=== PATIENT | male | born 1955 | race Caucasian/White ===

== ENCOUNTER 2021-06-09 19:37 | Inpatient (IN) | payer MEDICARE, SELFPAY ==
[2021-06-09] VITALS (13 sets, daily range): BP systolic 104–131; BP diastolic 62–74; PULSE 61–74; RESP 16–22; TEMP 36.1–37; O2SAT 91–98; BMI 28.0
--- NOTE | 2021-06-09 19:43 | PCM.HP.STD ---
HPI - General General Date of Admission: 06/09/21 HPI Narrative JEREMIAH METCALF, is a 65 M who presents from an outside hospital with acute hypoxic and hypercapnic respiratory failure. He has a history of COPD. Unfortunately patient is intubated on arrival cannot provide any history. It appears that he arrived to the outside hospital short of breath and they found that his PCO2 was elevated to 91 and he had a pH of 7.16. Initially they trialed him on BiPAP however they did not have any significant improvement in his ABG so they elected to intubate him. He had to be transferred to this institution secondary to the outside hospital not having critical care. Currently he is stable on review of his medical record from the outside hospital, he does have an elevated D-dimer they did send a disc with images so we will see if he has a CTA, chest x-ray did demonstrate a possible right lower lobe pneumonia. He also had an elevated troponin however this is likely secondary to his hypoxia, according to nursing staff and signout they were told that when he arrived to the outside hospital he was 60% on room air. It does appear that his troponins did trend down. PFSH Allergy/AdvReac Type Severity Reaction Status Date / Time No Known Drug Allergies Allergy Other Verified 06/09/21 19:32 unable to obtain unable to obtain Social History (Updated 06/09/21 @ 19:[address] Hang Nunes MD) Smoking Status: Current every day smoker ROS Review of Systems ROS Unobtainable: due to endotracheal tube Vital Signs Vital Signs Vital Signs: 06/09/21 18:45 06/09/21 19:09 Pulse Rate 65 67 Respiratory Rate 16 Respiratory Pattern Normal Pulse Ox 92 Fraction of Inspired Oxygen (FIO2) 40 Weight Weight: 184 lb 4.903 oz Body Mass Index (BMI) 28.0 Physical Exam Const General Appearance: intubated and patient mechanically ventilated HEENT normocephalic and moist oral mucous membranes Eyes PERRL and conjunctivae normal Neck supple and no JVD Resp normal respiratory effort, no retractions and no use of accessory muscles Auscultation: rhonchi; Negative for crackles, rales or wheezes Cardio regular rate, regular rhythm, S1 normal heart sound, S2 normal heart sound and no murmurs GI soft to palpation and non-distended; Negative for hepatosplenomegaly Extremity no clubbing, cyanosis or edema Skin no rashes or lesions noted Neuro Sensorium / Orientation: sedated on vent Psych Appearance: intubated Assessment & Plan Assessment/Plan (1) Acute respiratory failure with hypoxia and hypercapnia: (2) Pneumonia: (3) COPD exacerbation: PLAN: 1. Acute hypoxic and hypercapnic respiratory failure secondary to COPD exacerbation and possible pneumonia ? Unfortunate able to obtain any history from the chart or from the patient as he is intubated ? Continue with Levaquin ? Continue with IV fluids ? We will repeat an ABG to evaluate progress ? Chest x-ray from the outside hospital demonstrated hyperinflated lungs so he likely has a history of COPD given his smoking he did have some rhonchi/wheezing on exam sick also placed on steroids ? Appreciate ICU assistance ? We will obtain a sputum culture ? Flu and COVID testing were negative at the outside hospital ? Elevated troponin at the outside hospital is likely related to the hypoxia, it was trending down per their labs therefore will not investigate further at this time DVT: Lovenox Charges/Coding Visit Charges Inpatient E&M: 96026 Init Hosp L3
[2021-06-09 19:56] LABS: Allen Test Positive; Base Excess 4 mmol/L (-2 to +2); Bicarbonate 30.2 mmol/L (22-26); Blood Gas Specimen Type ART; FI02 40; Mode AC; O2 Delivery Device Adult Vent; PEEP 5; PO2 88 mmHG (75-100); RR 16; SITE R Radial; SO2 96 % (95-99); Total Carbon Dioxide 32 mmol/L; Vt 550; pCO2 56.7 mmHg (35-45); pH 7.34 (7.35-7.45)
--- NOTE | 2021-06-09 20:02 | RAD_ITS ---
STUDY: X-RAY CHEST REASON FOR EXAM: Male, 65 years old. CHEST PAIN ETT Positioning TECHNIQUE: XR Chest 1 View COMPARISON: None FINDINGS: There is no demonstrated pleural abnormality. There is bilateral infiltrate / atelectasis. There is an NGT and ET tube in place. Cervical spine fusion hardware noted. Normal size heart. Normal mediastinum and nydia. Normal visualized pulmonary arteries. There is atherosclerotic calcification of the aortic arch with tortuosity. There are diffuse degenerative changes of the visualized thoracic spine. There is degenerative osteoarthritis of the bilateral shoulders. There is no demonstrated abnormality of the visualized soft tissue structures of the upper abdomen. RAD/Chest 1 View (Portable) IMPRESSION: There is bilateral infiltrate. ET tube is in good position. Electronically Signed: Nestor Youssef MD at 21:27 EDT ,
[2021-06-09] MEDS: Propofol 10MG/Ml 1,000 MG/100 ML Bottle 17.6 MG CONT INF (20:08)
[2021-06-09 20:09] LABS: ALB/GLOB Ratio 0.6 RATIO (0.9-2.4); AST(SGOT) 14 U/L (15-37); Alanine Aminotransfer ALT/SGPT 24 U/L (16-61); Albumin, Serum 2.7 g/dL (3.2-5.0); Alkaline Phosphatase 78 U/L (45-117); Anion Gap 2 (5-15); BUN 46 mg/dL (7-18); BUN/Creat Ratio 41.1 RATIO (10-20); Calcium,Total 9.1 mg/dL (8.5-10.1); Chloride 107 mmol/L (98-107); Creatinine, Serum 1.12 mg/dL (0.70-1.30); EST Glomerular Filtration Rate 69 mL/min (>60); Est Glom Filt Rate - Afr Amer 84 mL/min (>60); Estimated Creatinine Clearance 61.92 ml/min; Globulin 4.2 g/dL (2.2-4.2); Glucose 170 mg/dL (74-106); Potassium 4.5 mmol/L (3.5-5.1); Protein, Total 6.9 g/dL (6.4-8.2); Sodium Level 143 mmol/L (136-145)
[2021-06-09 20:12] LABS: Absolute Lymphocyte Count 0.41 X10^3/uL (0.83-4.51); Absolute Neutrophil Count 8.7 X10^3/uL (2.0-7.7); Basophil# 0.03 X10^3/uL; Basophil% 0.3 % (0-1); Eosinophil# 0.01 X10^3/uL; Eosinophils% 0.1 % (0-5); Lymphocyte # 0.41 X10^3/ul (0.83-4.51); Lymphocyte % 4.3 % (19-41); Mean Corp Hgb Conc 32.6 g/dL (32-36); Mean Corpuscular Hgb 30.4 pg (27.0-32.0); Mean Corpuscular Volume 93.1 fL (80-94); Mean Platelet Vol. 10.5 fl (6.2-12.0); Monocyte# 0.19 X10^3/uL; NRBC Flagged by Analyzer 0.3 % (0-5); Neutrophil # 8.67 X10^3/uL (2.7-7.7); Neutrophil % 91.6 % (47-70); POSITIVE DIFFERENTIAL YES; Platelet Count 244 K/mm3 (150-450); RBC Distribution Width CV 15.1 % (11.6-14.6); RBC Distribution Width SD 51.8 fl (35.1-43.9); Red Blood Count 4.94 M/mm3 (4.6-6.2); White Blood Count 9.5 K/mm3 (4.4-11.0)
[2021-06-09 20:14] LABS: Differential Indicated SCAN CRITERIA MET
--- NOTE | 2021-06-09 20:44 | NURSING ---
Came on to shift at 1914. Propofol drip noted to be running at 20mcg/kg/min with previous shift RN. Pt direct admit, no admission orders present at that time. Dr. Nunes aware and placing orders at this time, ok to continue propofol drip.
[2021-06-09 20:46] LABS: Platelet Estimate ADEQUATE (ADEQ); Red Cell Morphology NORM C+C NORMAL (NORM C&C)
[2021-06-09 21:38] LABS: CPK Total, Creatine Kinase 133 U/L (39-308); Triglycerides 114 mg/dL
[2021-06-09] MEDS: Chlorhexidine 15 ML PO (22:10)
[2021-06-09] MEDS: 0.9% Normal Saline 1,000 ML 100 ML IV (22:11)
[2021-06-09] MEDS: Propofol 10MG/Ml 1,000 MG/100 ML Bottle 25.1 MG CONT INF (23:06)
[2021-06-10] VITALS (45 sets, daily range): BP systolic 82–124; BP diastolic 48–94; PULSE 45–113; RESP 14–28; TEMP 36.3–36.6; O2SAT 80–99
[2021-06-10] MEDS: 0.9% Saline Lock 10 ML Syringe IV (02:49)
[2021-06-10] MEDS: Propofol 10MG/Ml 1,000 MG/100 ML Bottle 22.6 MG CONT INF ×6 (02:50→23:06)
[2021-06-10 03:03] LABS: Absolute Lymphocyte Count 0.54 X10^3/uL (0.83-4.51); Absolute Neutrophil Count 6.3 X10^3/uL (2.0-7.7); Basophil# 0.01 X10^3/uL; Basophil% 0.1 % (0-1); Eosinophil# 0.01 X10^3/uL; Eosinophils% 0.1 % (0-5); Hematocrit 39.8 % (40-54); Hemoglobin 13.4 g/dL (13.0-16.5); Lymphocyte # 0.54 X10^3/ul (0.83-4.51); Lymphocyte % 7.5 % (19-41); Mean Corp Hgb Conc 33.7 g/dL (32-36); Mean Corpuscular Hgb 30.6 pg (27.0-32.0); Mean Corpuscular Volume 90.9 fL (80-94); Mean Platelet Vol. 10.1 fl (6.2-12.0); Monocyte# 0.22 X10^3/uL; Monocyte% 3.1 % (0-10); NRBC Flagged by Analyzer 0.3 % (0-5); Neutrophil # 6.32 X10^3/uL (2.7-7.7); Neutrophil % 88.1 % (47-70); POSITIVE DIFFERENTIAL YES; Platelet Count 229 K/mm3 (150-450); RBC Distribution Width CV 14.8 % (11.6-14.6); RBC Distribution Width SD 49.6 fl (35.1-43.9); Red Blood Count 4.38 M/mm3 (4.6-6.2); White Blood Count 7.2 K/mm3 (4.4-11.0)
[2021-06-10 03:17] LABS: Anion Gap 5 (5-15); BUN 49 mg/dL (7-18); BUN/Creat Ratio 49.7 RATIO (10-20); Calcium,Total 8.2 mg/dL (8.5-10.1); Chloride 108 mmol/L (98-107); Creatinine, Serum 0.99 mg/dL (0.70-1.30); EST Glomerular Filtration Rate 80 mL/min (>60); Est Glom Filt Rate - Afr Amer 97 mL/min (>60); Estimated Creatinine Clearance 70.05 ml/min; Glucose 198 mg/dL (74-106); Potassium 4.3 mmol/L (3.5-5.1); Sodium Level 143 mmol/L (136-145)
[2021-06-10 05:10] LABS: Differential Indicated SCAN CRITERIA MET
[2021-06-10 05:27] LABS: Differential Comment SCANNED
--- NOTE | 2021-06-10 06:01 | CON.PCM.CC_ITS ---
Assessment & Plan Assessment/Plan (1) Acute respiratory failure with hypoxia and hypercapnia: PLAN: RECOMMENDATIONS: 1. Continue patient on assist control mode mechanical ventilation. Wean FiO2 for saturations greater than 90%. 2. In light of his elevated BNP at the outside hospital, discontinue IV fluids. 3. Transition from Levaquin to Zosyn. Check MRSA screen. 4. Continue scheduled bronchodilators and IV steroids. 5. Obtain echocardiogram. 6. Continue Lovenox for DVT prophylaxis. Start appropriate GI prophylaxis with PPI therapy. 7. Repeat D-dimer. IMPRESSIONS: 1. Respiratory failure with hypoxemia and hypercapnia, of unclear chronicity The patient has an apparent history of COPD along with chronic tobacco dependenc y. However, we do not have any records of any prior pulmonary function studies. In addition, it is still unclear if the patient truly utilizes supplemental oxygen at his baseline. The patient did have bilateral interstitial infiltrates noted on chest imaging. Therefore, it is certainly reasonable to continue antimicrobials to cover for potential pulmonary infectious process. In addition, he did have an elevated BNP and troponin. Accordingly, will obtain an echocardiogram. The patient did have an elevated D-dimer at the outside hospital. However, follow-up CTA chest was never completed. We will plan to recheck his D-dimer and if still elevated, will obtain CTA chest to complete his work-up. In the interim, the patient will remain on scheduled bronchodilators and IV steroids. He will be continued on assist control mode of mechanical ventilation. FiO2 will be weaned to maintain the oxygen saturations at or above 90%. 2. Troponin elevation Likely secondary to demand ischemia in the setting of #1. Nevertheless, given his lack of medical history coupled with his elevated BNP, will obtain echocardiogram for follow-up. 3. Chronic tobacco dependency The exact pack-year smoking history is unclear. Nevertheless, nicotine replacement therapy can be utilized while the patient is admitted to the hospital. TIME: 33 minutes of critical care time, independent of procedures, was spent addressing the patient's respiratory failure with hypoxemia and hypercapnia, troponin elevation, review of all data and collaboration with the care team. HPI Consult Data Date of Consult: 06/10/21 HPI Narrative Reason for Consultation: Acute on chronic respiratory failure HPI Narrative: The patient is a 65-year-old male, with a history as outlined below, who presented as a transfer of care from [facility] on June 09 with reported shortness of breath of several days duration. History pertinent to the patient's hospitalization was obtained primarily via chart review, as the patient is currently intubated and there is no family available at the bedside. According to documentation, the patient has a history of COPD of unknown severity along with chronic tobacco dependency. Chest x-ray from outside hospital demonstrated an infiltrate in the right lung base along with an elevated left hemidiaphragm. Initial troponin was elevated at 112. There was no evidence of leukocytosis on CBC with differential. Creatinine was noted to be 1.2. D-dimer was elevated at 626. BNP was increased at 2796. Lactate was normal at 1.2. Initial arterial blood gas obtained on a nonrebreather demonstrated a pH of 7.19 with a PCO2 of 91 and PO2 of 130. Rapid influenza screen was negative. COVID antigen testing was negative. According to documentation from the outside hospital, he was placed on a trial of BiPAP. However, he failed to improve and was ultimately intubated. [facility] Medical History COPD (chronic obstructive pulmonary disease) Diabetes Smoking Allergy/AdvReac Type Severity Reaction Status Date / Time No Known Drug Allergies Allergy Other Verified 06/09/21 19:32 Family History unable to obtain Surgical History unable to obtain Social History Smoking Status: Current every day smoker tobacco type: cigarettes ROS Review of Systems ROS Unobtainable: due to endotracheal tube Physical Exam Const no apparent distress General Appearance: intubated and patient mechanically ventilated HEENT normocephalic and head/scalp atraumatic Mouth: endotracheal tube in place and OG tube in place Eyes PERRL and EOMs intact bilaterally Neck supple General: trachea midline Chest inspection of chest normal Resp Auscultation: diminished lung sounds; Negative for rales, rhonchi or wheezes Cardio S1 normal heart sound and S2 normal heart sound Rate: bradycardia GI normal to inspection, nondistended, normoactive bowel sounds Extremity no clubbing, cyanosis or edema Skin no rashes or lesions noted Neuro Sensorium / Orientation: sedated on vent Lab / Micro Data Result Diagrams: 06/10/21 02:56 06/10/21 02:56 Labs: Laboratory Results - last 24 hr 06/09/21 18:50: WBC 9.5, RBC 4.94, Hgb 15.0, Hct 46.0, MCV 93.1, MCH 30.4, MCHC 32.6, RDW Std Deviation 51.8 H, RDW Coeff of Bobo 15.1 H, Plt Count 244, MPV 10.5, Immature Gran % (Auto) 1.700 H, Neut % (Auto) 91.6 H, Lymph % (Auto) 4.3 L , [place] % (Auto) 2.0, Eos % (Auto) 0.1, Baso % (Auto) 0.3, Absolute Neuts (auto) 8.7 H, Absolute Lymphs (auto) 0.41 L, Nucleated RBC % 0.3, Differential Comment , Platelet Estimate ADEQUATE, RBC Morphology NORM C+C 06/09/21 18:50: Sodium 143, Potassium 4.5, Chloride 107, Carbon Dioxide 34.0 H, Anion Gap 2 L, BUN 46 H, Creatinine 1.12, Estim Creat Clear Calc 61.92, Est GFR (MDRD) Af Amer 84, Est GFR (MDRD) Non-Af 69, BUN/Creatinine Ratio 41.1 H, Glucose 170 H, Calcium 9.1, Total Bilirubin 0.30, AST 14 L, ALT 24, Alkaline Phosphatase 78, Total Protein 6.9, Albumin 2.7 L, Globulin 4.2, Albumin/Globulin Ratio 0.6 L 06/09/21 18:50: Total Creatine Kinase 133, Triglycerides 114 06/10/21 02:56: WBC 7.2, RBC 4.38 L, Hgb 13.4, Hct 39.8 L, MCV 90.9, MCH 30.6, MCHC 33.7, RDW Std Deviation 49.6 H, RDW Coeff of Bobo 14.8 H, Plt Count 229, MPV 10.1, Immature Gran % (Auto) 1.100 H, Neut % (Auto) 88.1 H, Lymph % (Auto) 7.5 L , [place] % (Auto) 3.1, Eos % (Auto) 0.1, Baso % (Auto) 0.1, Absolute Neuts (auto) 6.3, Absolute Lymphs (auto) 0.54 L, Nucleated RBC % 0.3, Differential Comment SCANNED 06/10/21 02:56: Sodium 143, Potassium 4.3, Chloride 108 H, Carbon Dioxide 30.0, Anion Gap 5, BUN 49 H, Creatinine 0.99, Estim Creat Clear Calc 70.05, Est GFR (MDRD) Af Amer 97, Est GFR (MDRD) Non-Af 80, BUN/Creatinine Ratio 49.7 H, Glucose 198 H, Calcium 8.2 L ABG Data ABG results: ABG 06/09/21 19:48 Specimen Type ART Sample Site R Radial pH 7.34 L Bicarbonate Actual 30.2 H Total CO2 32 Base Excess 4 H O2 Saturation 96 O2 % 40 ABG pCO2 56.7 H ABG pO2 88 Moiz Test Positive Respiration Rate 16 O2 Delivery Device Adult Vent Vent Mode AC Tidal Volume 550 POC PEEP 5 Radiology Impression Chest X-Ray 06/09/21 20:02 IMPRESSION: There is bilateral infiltrate. ET tube is in good position. Electronically Signed: Nestor Youssef MD at 21:27 EDT Reading Location ID and State: [facility] / [place] , Service support , Charges/Coding Procedures Hospitalists Procedures: [id number] Critial Care 1st Hr
--- NOTE | 2021-06-10 06:13 | ECHOCS_ITS ---
Reason For Study: SOB Procedure This was a 2D Doppler, Color Flow transthoracic echocardiogram. The study was technically difficult. Patient scanned supine on vent. Exam performed portable in ICU/CCU. Left Ventricle Normal left ventricle. The estimated ejection fraction is 50-55 %. Right Ventricle Normal right ventricle. Normal systolic function. Atria Normal left atrium. Normal right atrium. Mitral Valve The mitral valve is structurally normal. No prolapse or stenosis seen. No mitral valve insufficiency. Tricuspid Valve Normal tricuspid valve. No eccentric tricuspid valve insufficiency. Aortic Valve Normal aortic valve. No eccentric aortic valve insufficiency. Pulmonic Valve The pulmonic valve is not well visualized. Great Vessels Normal aortic root. Pericardium/Pleural No pericardial effusion. Medication Diluted definity 2ml given slow IV push to enhance endocardial definition. MMode/2D Measurements & Calculations LVIDd: 5.3 cm IVSd: 1.1 cm Ao root diam: 3.4 cm LVIDs: 3.6 cm LVPWd: 0.92 cm FS: 31.9 % LVAd ap4: 34.6 cm2 SV(MOD-sp4): 73.1 ml SV(sp4-el): 73.0 ml LVLd ap4: 7.9 cm EDV(MOD-sp4): 128.1 ml EDV(sp4-el): 129.2 ml LVAs ap4: 20.9 cm2 LVLs ap4: 6.6 cm ESV(MOD-sp4): 54.9 ml ESV(sp4-el): 56.2 ml EF(MOD-sp4): 57.1 % EF(sp4-el): 56.5 % LA dimension(2D): 3.6 cm Doppler Measurements & Calculations MV E max dimitri: 67.1 cm/sec Lat Peak E' Dimitri: 7.7 cm/sec Med Peak E' Dimitri: 7.6 cm/sec MV A max dimitri: 68.4 cm/sec E/E' lat: 8.7 E/E' med: 8.9 MV E/A: 0.98 Ao V2 max: 121.8 cm/sec LV V1 max: 94.5 cm/sec PA V2 max: 79.1 cm/sec Ao max P.9 mmHg LV V1 max P.6 mmHg TR max dimitri: 232.1 cm/sec TR max P.5 mmHg ECHO/Echo Complete W/ Contrast Interpretation Summary The estimated ejection fraction is 50-55 %. patient [facility] COPD/TDS Contrast echo used with Normal LV wall mothion No revious study to compare Ordering Physician: Roddy Cruz Performed By: Marah Winn RDCS
[2021-06-10] MEDS: Ipratropium/Albuterol Sulfate 3 ML AMPUL.NEB INHALATION ×4 (07:03→18:37)
[2021-06-10 07:09] LABS: D-Dimer Quantitative (DVT/PE) 2.09 FEU/ug/m (0.27-0.49)
--- NOTE | 2021-06-10 07:27 | CT_ITS ---
STUDY: CTA CHEST REASON FOR EXAM: Male, 65 years old. Elevated D-Dimer RADIATION DOSAGE (If Supplied By Facility): CTDIvol = ( 14.62 ) mGy, DLP = ( 520.42 ) mGycm TECHNIQUE: The examination was performed with the intravenous administration of IV 100mL Isovue-370. Post-processing of the angiographic images was performed, with multiplanar reformation and 3D reconstruction. Individualized dose optimization techniques were used for this CT. COMPARISON: None. FINDINGS: Evaluation is limited by patient motion and by streak artifact due to the patient''s arms being at his sides. There is an endotracheal tube noted with its tip approximately 3 cm above the rula. There is an enteric tube noted with its tip in the stomach. There is no central or segmental pulmonary embolus. The subsegmental branches are not fully evaluated. There is no thoracic aortic aneurysm or dissection. There are trace bilateral pleural effusions. There is patchy airspace opacity in the right middle lobe and in the lung bases. This is most pronounced in the right lung base and is likely infectious in etiology. There is no pneumothorax. The heart and pericardium are within normal limits. There is no thoracic lymphadenopathy. Images through the upper abdomen demonstrate no significant abnormality. There is fusion hardware noted in the lower cervical spine. CT/CTA Chest W/WO Contrast IMPRESSION: Study limited by patient motion and by streak artifact due to the patient''s arms being at his sides. No central or segmental pulmonary embolus. No thoracic aortic aneurysm or dissection. Trace bilateral pleural effusions. Patchy airspace opacity in the right middle lobe and in the lung bases, most pronounced at the right lung base. This is likely infectious in etiology. Electronically Signed: Miguel Maciel MD at 8:32 EDT ,
--- NOTE | 2021-06-10 07:43 | PCM.PN.HOSP ---
Subjective Subjective Patient is a 65-year-old gentleman with history of COPD who was first admitted to [facility] with respiratory failure. His clinical condition deteriorated resulting in patient being intubated and subsequently transferred to [facility]. Patient was admitted directly to the ICU. Subsequent imaging studies obtained demonstrated patchy airspace opacity in the right middle lobe and the lung bases pronounced at the right lung base suspicious for pneumonia. Objective Data Objective Data Vital Signs: Vital Signs Temp Pulse Resp BP Pulse Ox 97.6 F L 56 L 16 116/67 93 06/10/21 03:00 06/10/21 07:05 06/10/21 07:05 06/10/21 07:00 06/10/21 07:00 Oxygen Delivery Method Mechanical Ventilator Weight: 84.1 kg Body Mass Index (BMI) 28.0 Intake & Output: Intake and Output for Last 24 Hours 06/08/21 06/09/21 06/10/21 23:59 23:59 23:59 Intake Total 121.43 / 127.08 973.32 / 973.32 Output Total 200 / 200 225 / 225 Balance -78.57 / -72.92 748.32 / 748.32 Lab / Micro Data Result Diagrams: 06/10/21 02:56 06/10/21 02:56 Labs: Laboratory Results - last 24 hr 06/09/21 18:50: WBC 9.5, RBC 4.94, Hgb 15.0, Hct 46.0, MCV 93.1, MCH 30.4, MCHC 32.6, RDW Std Deviation 51.8 H, RDW Coeff of Bobo 15.1 H, Plt Count 244, MPV 10.5, Immature Gran % (Auto) 1.700 H, Neut % (Auto) 91.6 H, Lymph % (Auto) 4.3 L, [place] % (Auto) 2.0, Eos % (Auto) 0.1, Baso % (Auto) 0.3, Absolute Neuts (auto) 8.7 H, Absolute Lymphs (auto) 0.41 L, Nucleated RBC % 0.3, Differential Comment , Platelet Estimate ADEQUATE, RBC Morphology NORM C+C 06/09/21 18:50: Sodium 143, Potassium 4.5, Chloride 107, Carbon Dioxide 34.0 H, Anion Gap 2 L, BUN 46 H, Creatinine 1.12, Estim Creat Clear Calc 61.92, Est GFR (MDRD) Af Amer 84, Est GFR (MDRD) Non-Af 69, BUN/Creatinine Ratio 41.1 H, Glucose 170 H, Calcium 9.1, Total Bilirubin 0.30, AST 14 L, ALT 24, Alkaline Phosphatase 78, Total Protein 6.9, Albumin 2.7 L, Globulin 4.2, Albumin/Globulin Ratio 0.6 L 06/09/21 18:50: Total Creatine Kinase 133, Triglycerides 114 06/10/21 02:56: WBC 7.2, RBC 4.38 L, Hgb 13.4, Hct 39.8 L, MCV 90.9, MCH 30.6, MCHC 33.7, RDW Std Deviation 49.6 H, RDW Coeff of Bobo 14.8 H, Plt Count 229, MPV 10.1, Immature Gran % (Auto) 1.100 H, Neut % (Auto) 88.1 H, Lymph % (Auto) 7.5 L, [place] % (Auto) 3.1, Eos % (Auto) 0.1, Baso % (Auto) 0.1, Absolute Neuts (auto) 6.3, Absolute Lymphs (auto) 0.54 L, Nucleated RBC % 0.3, Differential Comment SCANNED 06/10/21 02:56: Sodium 143, Potassium 4.3, Chloride 108 H, Carbon Dioxide 30.0, Anion Gap 5, BUN 49 H, Creatinine 0.99, Estim Creat Clear Calc 70.05, Est GFR (MDRD) Af Amer 97, Est GFR (MDRD) Non-Af 80, BUN/Creatinine Ratio 49.7 H, Glucose 198 H, Calcium 8.2 L 06/10/21 06:36: D-Dimer Quant (PE/DVT) 2.09 H* ABG Data ABG results: ABG 06/09/21 19:48 Specimen Type ART Sample Site R Radial pH 7.34 L Bicarbonate Actual 30.2 H Total CO2 32 Base Excess 4 H O2 Saturation 96 O2 % 40 ABG pCO2 56.7 H ABG pO2 88 Moiz Test Positive Respiration Rate 16 O2 Delivery Device Adult Vent Vent Mode AC Tidal Volume 550 POC PEEP 5 Radiography Diagnostic Testing: Radiology Impression Chest X-Ray 06/09/21 20:02 IMPRESSION: There is bilateral infiltrate. ET tube is in good position. Electronically Signed: Nestor Youssef MD at 21:27 EDT , Physical Exam Narrative GENERAL: Sedated on the vent HEENT: Atraumatic; EYES; Anicteric, Normal Conjunctiva NECK; supple, normal thyroid, RESPIRATORY: Diminished to auscultation CARDIOVASCULAR: Regular S1 S2, GI: soft, normoactive bowel sounds, : No Renal angle tenderness; EXTREMITIES: No edema, no clubbing, MUSCULOSKELETAL: no muscle wasting NEURO: Sedated on the vent SKIN: No Rash PSYCH; unable to assess Assessment & Plan Assessment/Plan (1) Acute respiratory failure with hypoxia and hypercapnia: (2) Pneumonia: (3) COPD exacerbation: PLAN: Patient is a 65-year-old gentleman with history of COPD who was first admitted to [facility] with respiratory failure. His clinical condition deteriorated resulting in patient being intubated and subsequently transferred to [facility]. Patient was admitted directly to the ICU. Subsequent imaging studies obtained demonstrated patchy airspace opacity in the right middle lobe and the lung bases pronounced at the right lung base suspicious for pneumonia. 1. Acute hypoxic and hypercapnic respiratory failure ? Secondary to combination of COPD and suspected pneumonia. Patient was transferred from [facility] on the vent. Patient is currently in the ICU with consultation placed to pulmonary medicine/intensive care. Vent management deferred patient had elevated D-dimer CTA of the chest was negative for PE 2. Pneumonia ? Patient is at risk for multidrug-resistant pneumonia. Patient was on Levaquin on admission this has been switched to Zosyn with MRSA screen ordered 3. COPD with acute exacerbation ? Patient was admitted with acute hypoxic and hypercapnic respiratory failure. Patient is on the vent currently. Also on systemic steroids 4. Elevated troponin ? Secondary to non-STEMI type II from demand ischemia 5. DVT prophylaxis ? SC enoxaparin Charges/Coding Visit Charges Inpatient E&M: 27659 Subs Hosp L3
[2021-06-10] MEDS: Chlorhexidine 15 ML PO ×2 (08:33→19:46)
[2021-06-10] MEDS: Enoxaparin 40 MG/0.4 ML Syringe SC (08:35)
[2021-06-10 09:40] LABS: M R Staph aureus DNA By PCR Negative (Negative); Probe Check PASS; Specimen Processing Control PASS
[2021-06-10] MEDS: CHLORHEXIDINE GLUC 2% CLOTH 1 EACH TOWELETTE TOPICAL (09:56)
--- NOTE | 2021-06-10 12:54 | CASEMGMT ---
RN CM NOTE: Pt currently intubated. Initial RN CM assessment deferred at this time. Maximilian POPEN RN CM
[2021-06-10] MEDS: Lactated Ringers 1,000 ML 999 ML IV (16:00)
[2021-06-11] VITALS (44 sets, daily range): BP systolic 100–120; BP diastolic 58–86; PULSE 46–105; RESP 9–40; TEMP 36.2–37.3; O2SAT 89–98
[2021-06-11] MEDS: Propofol 10MG/Ml 1,000 MG/100 ML Bottle 22.6 MG CONT INF (03:17)
[2021-06-11 04:11] LABS: Absolute Lymphocyte Count 0.65 X10^3/uL (0.83-4.51); Absolute Neutrophil Count 8.1 X10^3/uL (2.0-7.7); Basophil# 0.02 X10^3/uL; Basophil% 0.2 % (0-1); Hematocrit 38.3 % (40-54); Hemoglobin 13.1 g/dL (13.0-16.5); Lymphocyte # 0.65 X10^3/ul (0.83-4.51); Lymphocyte % 6.9 % (19-41); Mean Corp Hgb Conc 34.2 g/dL (32-36); Mean Corpuscular Hgb 30.5 pg (27.0-32.0); Mean Corpuscular Volume 89.3 fL (80-94); Mean Platelet Vol. 9.6 fl (6.2-12.0); Monocyte# 0.56 X10^3/uL; NRBC Flagged by Analyzer 0.2 % (0-5); Neutrophil # 8.05 X10^3/uL (2.7-7.7); Neutrophil % 85.5 % (47-70); Platelet Count 235 K/mm3 (150-450); RBC Distribution Width CV 14.9 % (11.6-14.6); RBC Distribution Width SD 48.7 fl (35.1-43.9); Red Blood Count 4.29 M/mm3 (4.6-6.2); White Blood Count 9.4 K/mm3 (4.4-11.0)
[2021-06-11 04:28] LABS: ALB/GLOB Ratio 0.7 RATIO (0.9-2.4); AST(SGOT) 8 U/L (15-37); Alanine Aminotransfer ALT/SGPT 16 U/L (16-61); Albumin, Serum 2.3 g/dL (3.2-5.0); Alkaline Phosphatase 56 U/L (45-117); Anion Gap 3 (5-15); BUN 51 mg/dL (7-18); BUN/Creat Ratio 46.4 RATIO (10-20); Calcium,Total 8.1 mg/dL (8.5-10.1); Chloride 108 mmol/L (98-107); EST Glomerular Filtration Rate 71 mL/min (>60); Est Glom Filt Rate - Afr Amer 86 mL/min (>60); Estimated Creatinine Clearance 63.05 ml/min; Globulin 3.4 g/dL (2.2-4.2); Glucose 215 mg/dL (74-106); Potassium 4.3 mmol/L (3.5-5.1); Protein, Total 5.7 g/dL (6.4-8.2); Sodium Level 142 mmol/L (136-145)
[2021-06-11] MEDS: 0.9% Saline Lock 10 ML Syringe IV ×2 (05:11→19:35)
--- NOTE | 2021-06-11 05:52 | PN.CC_ITS ---
Assessment & Plan Assessment/Plan (1) Acute respiratory failure with hypoxia and hypercapnia: PLAN: RECOMMENDATIONS: 1. Continue patient on assist control mode mechanical ventilation. Wean FiO2/PEEP for saturations greater than 90%. 2. Obtain nutrition consultation for initiation of tube feeds. 3. Continue broad-spectrum antimicrobials, pending culture results. 4. Continue scheduled bronchodilators and IV steroids. 5. Continue appropriate DVT and GI prophylaxis. 6. Plan for daily paired spontaneous awakening and breathing trials. IMPRESSIONS: 1. Respiratory failure with hypoxemia and hypercapnia, of unclear chronicity The patient has an apparent history of COPD along with chronic tobacco dependency. However, we do not have any records of any prior pulmonary function studies. In addition, it is still unclear if the patient truly utilizes supplemental oxygen at his baseline. The patient did have bilateral interstiti al infiltrates noted on chest imaging. Therefore, it is certainly reasonable to continue antimicrobials to cover for an underlying pulmonary infectious process. Echocardiogram did not reveal any significant LV dysfunction. CTA chest was negative for pulmonary embolism. We will plan to continue scheduled bronchodilators and IV steroids. FiO2 and PEEP will be weaned to maintain oxygen saturations at or above 90%. Plan for daily paired spontaneous awakening and breathing trials. 2. Troponin elevation Likely secondary to demand ischemia in the setting of #1. Surface echocardiogram was unremarkable. 3. Chronic tobacco dependency The exact pack-year smoking history is unclear. Nevertheless, nicotine replacement therapy can be utilized while the patient is admitted to the hospital. Okay to initiate tube feeds today from my perspective. TIME: 32 minutes of critical care time, independent of procedures, was spent addressing the patient's respiratory failure with hypoxemia and hypercapnia, troponin elevation, review of all data and collaboration with the care team. Subjective Subjective The patient was seen and examined at the bedside this morning. Events from the last 24 hours have been reviewed. The patient is currently afebrile, hemodynamically stable and maintaining appropriate oxygen saturations on assist control mode mechanical ventilation with an FiO2 requirement of 40% and PEEP of 8. The patient is currently documented to be overall net +1.8 L for the hospitalization. The patient remains sedated on a combination of propofol and fentanyl. He remains on empiric antimicrobials, bronchodilators and IV ster oids. The patient did ultimately fail his spontaneous breathing trial this morning due to increased work of breathing and tachypnea. Objective Data Objective Data The patient's most recent lab work, culture data and imaging studies have all been personally reviewed. CTA chest showed no evidence for pulmonary embolism. Patchy airspace disease was noted in the right middle and lower lobe. Surface echocardiogram demonstrated normal LV size and function with an ejection fraction of 50 to 55%. Respiratory viral panel was negative. Outside hospital COVID antigen testing was negative. Sputum culture is pending. Vital Signs: Vital Signs Temp Pulse Resp BP Pulse Ox 97.6 F L 102 H 23 H 105/68 93 06/11/21 03:00 06/11/21 05:10 06/11/21 05:10 06/11/21 05:00 06/11/21 05:10 Oxygen Flow Rate (L/min) 35 Oxygen Delivery Method Mechanical Ventilator Weight: 85.8 kg Body Mass Index (BMI) 28.0 Intake & Output: Intake and Output for Last 24 Hours 06/09/21 06/10/21 06/11/21 23:59 23:59 23:59 Intake Total 121.43 / 127.08 3067.25 / 3095.09 194.31 / 194.31 Output Total 200 / 200 900 / 1150 475 / 475 Balance -78.57 / -72.92 2167.25 / 1945.09 -280.69 / -280.69 Lab / Micro Data Attestation: I reviewed the patient's lab results. Result Diagrams: 06/11/21 04:05 06/11/21 04:05 Labs: Laboratory Results - last 24 hr 06/10/21 06:35: MRSA (PCR) Negative 06/10/21 06:36: D-Dimer Quant (PE/DVT) 2.09 H* 06/11/21 04:05: WBC 9.4, RBC 4.29 L, Hgb 13.1, Hct 38.3 L, MCV 89.3, MCH 30.5, MCHC 34.2, RDW Std Deviation 48.7 H, RDW Coeff of Bobo 14.9 H, Plt Count 235, MPV 9.6, Immature Gran % (Auto) 1.400 H, Neut % (Auto) 85.5 H, Lymph % (Auto) 6.9 L, [place] % (Auto) 6.0, Eos % (Auto) 0.0, Baso % (Auto) 0.2, Absolute Neuts (auto) 8.1 H, Absolute Lymphs (auto) 0.65 L, Nucleated RBC % 0.2 06/11/21 04:05: Sodium 142, Potassium 4.3, Chloride 108 H, Carbon Dioxide 31.0, Anion Gap 3 L, BUN 51 H, Creatinine 1.10, Estim Creat Clear Calc 63.05, Est GFR (MDRD) Af Amer 86, Est GFR (MDRD) Non-Af 71, BUN/Creatinine Ratio 46.4 H, Glucose 215 H, Calcium 8.1 L, Total Bilirubin 0.20, AST 8 L, ALT 16, Alkaline Phosphatase 56, Total Protein 5.7 L, Albumin 2.3 L, Globulin 3.4, Albumin/Globulin Ratio 0.7 L Micro: Microbiology 06/09/21 19:33 Sputum, Induced/Lukens Gram Stain - Final 06/09/21 19:33 Sputum, Induced/Lukens Respiratory Culture - Preliminary Culture exhibits no growth. 06/10/21 06:49 Mucosa - Nasopharyngeal Respiratory Panel (PCR) - Final Radiography Diagnostic Testing: Radiology Impression Echocardiogram 06/10/21 06:13 Interpretation Summary The estimated ejection fraction is 50-55 %. patient wih COPD/TDS Contrast echo used with Normal LV wall mothion No revious study to compare Ordering Physician: Roddy Cruz Performed By: Marah Winn, WILMER Chest CTA 06/10/21 07:27 IMPRESSION: Study limited by patient motion and by streak artifact due to the patient''s arms being at his sides. No central or segmental pulmonary embolus. No thoracic aortic aneurysm or dissection. Trace bilateral pleural effusions. Patchy airspace opacity in the right middle lobe and in the lung bases, most pronounced at the right lung base. This is likely infectious in etiology. Electronically Signed: Miguel Maciel MD at 8:32 EDT , Physical Exam Const no apparent distress General Appearance: intubated and patient mechanically ventilated HEENT normocephalic and head/scalp atraumatic Mouth: endotracheal tube in place and OG tube in place Eyes PERRL and EOMs intact bilaterally Neck supple General: trachea midline Chest inspection of chest normal Resp Auscultation: diminished lung sounds; Negative for rales, rhonchi or wheezes Cardio S1 normal heart sound and S2 normal heart sound Rate: bradycardia GI normal to inspection, nondistended, normoactive bowel sounds Extremity no clubbing, cyanosis or edema Skin no rashes or lesions noted Neuro Sensorium / Orientation: sedated on vent Charges/Coding Procedures Hospitalists Procedures: 01908 Critial Care 1st Hr
[2021-06-11] MEDS: Ipratropium/Albuterol Sulfate 3 ML AMPUL.NEB INHALATION ×4 (06:25→19:19)
[2021-06-11] MEDS: TITRATION PARAMETER CHANGE 1 EACH IV (06:57)
--- NOTE | 2021-06-11 07:22 | PN.HOSP_ITS ---
Subjective Subjective Patient remains on the vent with current vent settings of assist control mode mechanical ventilation with an FiO2 requirement of 40% and PEEP of 8.. Attempts at weaning this a.m. unsuccessful. Objective Data Objective Data Vital Signs: Vital Signs Temp Pulse Resp BP Pulse Ox 97.6 F L 53 L 16 105/61 94 06/11/21 03:00 06/11/21 07:00 06/11/21 07:00 06/11/21 07:00 06/11/21 07:00 Oxygen Flow Rate (L/min) 35 Oxygen Delivery Method Mechanical Ventilator Weight: 85.8 kg Body Mass Index (BMI) 28.0 Intake & Output: Intake and Output for Last 24 Hours 06/09/21 06/10/21 06/11/21 23:59 23:59 23:59 Intake Total 121.43 / 127.08 3067.25 / 3095.09 236.97 / 236.97 Output Total 200 / 200 900 / 1150 475 / 475 Balance -78.57 / -72.92 2167.25 / 1945.09 -238.03 / -238.03 Lab / Micro Data Result Diagrams: 06/11/21 04:05 06/11/21 04:05 Labs: Laboratory Results - last 24 hr 06/10/21 06:35: MRSA (PCR) Negative 06/11/21 04:05: WBC 9.4, RBC 4.29 L, Hgb 13.1, Hct 38.3 L, MCV 89.3, MCH 30.5, MCHC 34.2, RDW Std Deviation 48.7 H, RDW Coeff of Bobo 14.9 H, Plt Count 235, MPV 9.6, Immature Gran % (Auto) 1.400 H, Neut % (Auto) 85.5 H, Lymph % (Auto) 6.9 L, [place] % (Auto) 6.0, Eos % (Auto) 0.0, Baso % (Auto) 0.2, Absolute Neuts (auto) 8.1 H, Absolute Lymphs (auto) 0.65 L, Nucleated RBC % 0.2 06/11/21 04:05: Sodium 142, Potassium 4.3, Chloride 108 H, Carbon Dioxide 31.0, Anion Gap 3 L, BUN 51 H, Creatinine 1.10, Estim Creat Clear Calc 63.05, Est GFR (MDRD) Af Amer 86, Est GFR (MDRD) Non-Af 71, BUN/Creatinine Ratio 46.4 H, Glucose 215 H, Calcium 8.1 L, Total Bilirubin 0.20, AST 8 L, ALT 16, Alkaline Phosphatase 56, Total Protein 5.7 L, Albumin 2.3 L, Globulin 3.4, Albumin/Globulin Ratio 0.7 L Micro: Microbiology 06/09/21 19:33 Sputum, Induced/Lukens Gram Stain - Final 06/09/21 19:33 Sputum, Induced/Lukens Respiratory Culture - Preliminary Culture exhibits no growth. 06/10/21 06:49 Mucosa - Nasopharyngeal Respiratory Panel (PCR) - Final Radiography Diagnostic Testing: Radiology Impression Echocardiogram 06/10/21 06:13 Interpretation Summary The estimated ejection fraction is 50-55 %. patient wih COPD/TDS Contrast echo used with Normal LV wall mothion No revious study to compare Ordering Physician: Roddy Cruz Performed By: Marah Winn ADINA Chest CTA 06/10/21 07:27 IMPRESSION: Study limited by patient motion and by streak artifact due to the patient''s arms being at his sides. No central or segmental pulmonary embolus. No thoracic aortic aneurysm or dissection. Trace bilateral pleural effusions. Patchy airspace opacity in the right middle lobe and in the lung bases, most pronounced at the right lung base. This is likely infectious in etiology. Electronically Signed: Miguel Maciel MD at 8:32 EDT , Physical Exam Narrative GENERAL: Sedated on the vent HEENT: Atraumatic; EYES; Anicteric, Normal Conjunctiva NECK; supple, normal thyroid, RESPIRATORY: Diminished to auscultation CARDIOVASCULAR: Regular S1 S2, GI: soft, normoactive bowel sounds, : No Renal angle tenderness; EXTREMITIES: No edema, no clubbing, MUSCULOSKELETAL: no muscle wasting NEURO: Sedated on the vent SKIN: No Rash PSYCH; unable to assess Const General Appearance: intubated and patient mechanically ventilated HEENT normocephalic and moist oral mucous membranes Eyes PERRL and conjunctivae normal Neck supple and no JVD Resp normal respiratory effort, no retractions and no use of accessory muscles Auscultation: rhonchi; Negative for crackles, rales or wheezes Cardio regular rate, regular rhythm, S1 normal heart sound, S2 normal heart sound and no murmurs GI soft to palpation and non-distended; Negative for hepatosplenomegaly Extremity no clubbing, cyanosis or edema Skin no rashes or lesions noted Neuro Sensorium / Orientation: sedated on vent Psych Appearance: intubated Assessment & Plan Assessment/Plan (1) Acute respiratory failure with hypoxia and hypercapnia: (2) Pneumonia: (3) COPD exacerbation: PLAN: Patient is a 65-year-old gentleman with history of COPD who was first admitted to [facility] with respiratory failure. His clinical condition deteriorated resulting in patient being intubated and subsequently transferred to [facility]. Patient was admitted directly to the ICU. Subsequent imaging studies obtained demonstrated patchy airspace opacity in the right middle lobe and the lung bases pronounced at the right lung base suspicious for pneumonia. 1. Acute hypoxic and hypercapnic respiratory failure ? Secondary to combination of COPD and suspected pneumonia. Patient was transferred from [facility] on the vent. Patient is currently in the ICU with consultation placed to pulmonary medicine/intensive care. Vent management deferred patient had elevated D-dimer CTA of the chest was negative for PE ? 06/11/2021atient remains on the vent with current vent settings of assist control mode mechanical ventilation with an FiO2 requirement of 40% and PEEP of 8.Attempts at weaning this a.m. unsuccessful. 2. Pneumonia ? Patient is at risk for multidrug-resistant pneumonia. Patient was on Levaquin on admission this has been switched to Zosyn with MRSA screen ordered 3. COPD with acute exacerbation ? Patient was admitted with acute hypoxic and hypercapnic respiratory failure. Patient is on the vent currently. Also on systemic steroids 4. Elevated troponin ? Secondary to non-STEMI type II from demand ischemia 5. DVT prophylaxis ? SC enoxaparin 6. Hyperglycemia ? Patient is not a known diabetic patient elevated blood glucose possibly from his systemic steroid order hemoglobin A1c Charges/Coding Visit Charges Inpatient E&M: 16300 Subs Hosp L3
[2021-06-11 08:03] LABS: Hemoglobin A1c 6.5 % (3.8-5.6)
[2021-06-11] MEDS: Enoxaparin 40 MG/0.4 ML Syringe SC (08:08)
[2021-06-11] MEDS: Chlorhexidine 15 ML PO ×2 (08:08→19:35)
[2021-06-11] MEDS: Propofol 10MG/Ml 1,000 MG/100 ML Bottle 23.2 MG CONT INF ×4 (08:12→19:54)
--- NOTE | 2021-06-11 10:38 | PCM.RX.CS ---
Consult Pharmacy has been consulted to manage selected antiobiotic: Vancomycin Type of Consult: New start Suspected Infection: Pneumonia Prior Doses of Antibiotics Received/Current Regimen: Received loading dose of 2000mg iv x 1. Labs: Sodium 142 mmol/L (136-145) 06/11/21 04:05 Potassium 4.3 mmol/L (3.5-5.1) 06/11/21 04:05 Chloride 108 mmol/L (98-107) H 06/11/21 04:05 Carbon Dioxide 31.0 mmol/L (21.0-32.0) 06/11/21 04:05 Anion Gap 3 (5-15) L 06/11/21 04:05 BUN 51 mg/dL (7-18) H 06/11/21 04:05 Creatinine 1.10 mg/dL (0.70-1.30) 06/11/21 04:05 Est GFR (MDRD) Af Amer 86 mL/min (>60) 06/11/21 04:05 Est GFR (MDRD) Non-Af 71 mL/min (>60) 06/11/21 04:05 BUN/Creatinine Ratio 46.4 RATIO (10-20) H 06/11/21 04:05 Glucose 215 mg/dL (74-106) H 06/11/21 04:05 Microbiology: Microbiology 06/09/21 19:33 Sputum, Induced/Lukens Gram Stain - Final 06/09/21 19:33 Sputum, Induced/Lukens Respiratory Culture - Preliminary Culture exhibits no growth. 06/10/21 06:49 Mucosa - Nasopharyngeal Respiratory Panel (PCR) - Final Weight used for dosin.8 kg Estimated Creatinine Clearance: 69 ml/min Goal Trough: 15-20 mcg/mL Pharmacy Plan for Drug Dosing: Will begin 1gm iv q12h per protocol. Trough level ordered for before 4th total dose on 06.12.21. Pharmacy Service will continue to monitor and adjust dosing as required. Follow-Up Labs: Trough Vancomycin - 06.12.21 @1830 before 1900 dose
[2021-06-11] MEDS: Vital AF 1.2 Cal Liquid 1,000 ML 20 ML GT (12:17)
[2021-06-11] MEDS: CHLORHEXIDINE GLUC 2% CLOTH 1 EACH TOWELETTE TOPICAL (12:19)
[2021-06-11] MEDS: Vancomycin IV 1,000 MG/200 ML BAG 200 MG IV (19:36)
[2021-06-11] MEDS: Propofol 10MG/Ml 1,000 MG/100 ML Bottle 20.6 MG CONT INF (23:36)
[2021-06-12] VITALS (41 sets, daily range): BP systolic 103–161; BP diastolic 58–94; PULSE 16–120; RESP 15–25; TEMP 36.2–37.3; O2SAT 35–97
[2021-06-12 03:57] LABS: Absolute Lymphocyte Count 0.58 X10^3/uL (0.83-4.51); Absolute Neutrophil Count 9.5 X10^3/uL (2.0-7.7); Basophil# 0.03 X10^3/uL; Basophil% 0.3 % (0-1); Hemoglobin 13.1 g/dL (13.0-16.5); Lymphocyte # 0.58 X10^3/ul (0.83-4.51); Lymphocyte % 5.3 % (19-41); Mean Corp Hgb Conc 33.6 g/dL (32-36); Mean Corpuscular Hgb 30.3 pg (27.0-32.0); Mean Corpuscular Volume 90.1 fL (80-94); Monocyte# 0.68 X10^3/uL; Monocyte% 6.2 % (0-10); NRBC Flagged by Analyzer 0.2 % (0-5); Neutrophil # 9.54 X10^3/uL (2.7-7.7); Neutrophil % 86.4 % (47-70); POSITIVE DIFFERENTIAL YES; Platelet Count 239 K/mm3 (150-450); RBC Distribution Width CV 14.9 % (11.6-14.6); RBC Distribution Width SD 48.6 fl (35.1-43.9); Red Blood Count 4.33 M/mm3 (4.6-6.2)
[2021-06-12] MEDS: TITRATION PARAMETER CHANGE 1 EACH IV (04:06)
[2021-06-12 04:20] LABS: ALB/GLOB Ratio 0.6 RATIO (0.9-2.4); AST(SGOT) 6 U/L (15-37); Alanine Aminotransfer ALT/SGPT 14 U/L (16-61); Albumin, Serum 2.2 g/dL (3.2-5.0); Alkaline Phosphatase 52 U/L (45-117); Anion Gap 4 (5-15); BUN 49 mg/dL (7-18); BUN/Creat Ratio 50.8 RATIO (10-20); Calcium,Total 8.6 mg/dL (8.5-10.1); Chloride 109 mmol/L (98-107); Creatinine, Serum 0.96 mg/dL (0.70-1.30); EST Glomerular Filtration Rate 83 mL/min (>60); Est Glom Filt Rate - Afr Amer 100 mL/min (>60); Estimated Creatinine Clearance 72.24 ml/min; Globulin 3.5 g/dL (2.2-4.2); Glucose 292 mg/dL (74-106); Magnesium 2.6 mg/dL (1.6-2.6); Potassium 4.6 mmol/L (3.5-5.1); Protein, Total 5.7 g/dL (6.4-8.2); Sodium Level 143 mmol/L (136-145)
[2021-06-12 04:24] LABS: Differential Indicated SCAN CRITERIA MET
[2021-06-12 04:25] LABS: Differential Comment SCANNED
[2021-06-12] MEDS: Propofol 10MG/Ml 1,000 MG/100 ML Bottle 15.6 MG CONT INF ×4 (05:37→23:47)
--- NOTE | 2021-06-12 06:36 | PCM.PN.INT ---
Assessment & Plan Assessment/Plan (1) Acute respiratory failure with hypoxia and hypercapnia: PLAN: RECOMMENDATIONS: 1. Continue patient on assist control mode mechanical ventilation. Wean FiO2/PEEP for saturations greater than 90%. 2. Continue tube feeds at the current setting. Add sliding scale insulin 3. Continue broad-spectrum antimicrobials, pending culture results. 4. Continue scheduled bronchodilators and IV steroids. 5. Continue appropriate DVT and GI prophylaxis. 6. Plan for daily paired spontaneous awakening and breathing trials. 7. Add Seroquel therapy IMPRESSIONS: 1. Respiratory failure with hypoxemia and hypercapnia, of unclear chronicity The patient has an apparent history of COPD along with chronic tobacco dependency. However, we do not have any records of any prior pulmonary function studies. In addition, it is still unclear if the patient truly utilizes supplemental oxygen at his baseline. The patient did have bilateral interstitial infiltrates noted on chest imaging. Therefore, it is certainly reasonable to continue antimicrobials to cover for an underlying pulmonary infectious process. Echocardiogram did not reveal any significant LV dysfunction. CTA chest was negative for pulmonary embolism. We will plan to continue scheduled bronchodilators and IV steroids. FiO2 and PEEP will be weaned to maintain oxygen saturations at or above 90%. Plan for daily paired spontaneous awakening and breathing trials. We will add Seroquel therapy to help with trials. 2. Troponin elevation Likely secondary to demand ischemia in the setting of #1. Surface echocardiogram was unremarkable. 3. Chronic tobacco dependency/insulin resistance The exact pack-year smoking history is unclear. Nevertheless, nicotine replacement therapy can be utilized while the patient is admitted to the hospital. Okay to continue tube feeds today from my perspective. We will add sliding scale insulin TIME: 34 minutes of critical care time, independent of procedures, was spent addressing the patient's respiratory failure with hypoxemia and hypercapnia, troponin elevation, review of all data and collaboration with the care team. Subjective Subjective Patient did okay overnight from a hemodynamic standpoint. Patient continues to tolerate tube feeds. Nursing did report episodes of bradycardia into the 40s. Patient remains on propofol and fentanyl, but becomes very agitated with spontaneous breathing trial. Patient did have some hypertension and tachycardia associated with a spontaneous breathing trial. Objective Data Objective Data Vital Signs: Vital Signs Temp Pulse Resp BP Pulse Ox 37.0 C 61 16 108/68 95 06/12/21 04:00 06/12/21 06:00 06/12/21 06:00 06/12/21 06:00 06/12/21 06:00 Oxygen Flow Rate (L/min) 40 Oxygen Delivery Method Mechanical Ventilator Weight: 86.8 kg Body Mass Index (BMI) 28.0 Intake & Output: Intake and Output for Last 24 Hours 06/10/21 06/11/21 06/12/21 23:59 23:59 23:59 Intake Total 3067.25 / 3095.09 1718.20 / 1967.69 1386.76 / 1386.76 Output Total 900 / 1150 1225 / 1225 300 / 300 Balance 2167.25 / 1945.09 493.20 / 742.69 1086.76 / 1086.76 Lab / Micro Data Result Diagrams: 06/12/21 03:50 06/12/21 03:50 Labs: Laboratory Results - last 24 hr 06/11/21 04:05: Hemoglobin A1c 6.5 H 06/12/21 03:50: WBC 11.0, RBC 4.33 L, Hgb 13.1, Hct 39.0 L, MCV 90.1, MCH 30.3, MCHC 33.6, RDW Std Deviation 48.6 H, RDW Coeff of Bobo 14.9 H, Plt Count 239, MPV 10.0, Immature Gran % (Auto) 1.800 H, Neut % (Auto) 86.4 H, Lymph % (Auto) 5.3 L, [place] % (Auto) 6.2, Eos % (Auto) 0.0, Baso % (Auto) 0.3, Absolute Neuts (auto) 9.5 H, Absolute Lymphs (auto) 0.58 L, Nucleated RBC % 0.2, Differential Comment SCANNED 06/12/21 03:50: Sodium 143, Potassium 4.6, Chloride 109 H, Carbon Dioxide 30.0, Anion Gap 4 L, BUN 49 H, Creatinine 0.96, Estim Creat Clear Calc 72.24, Est GFR (MDRD) Af Amer 100, Est GFR (MDRD) Non-Af 83, BUN/Creatinine Ratio 50.8 H, Glucose 292 H, Calcium 8.6, Magnesium 2.6, Total Bilirubin 0.30, AST 6 L, ALT 14 L, Alkaline Phosphatase 52, Total Protein 5.7 L, Albumin 2.2 L, Globulin 3.5, Albumin/Globulin Ratio 0.6 L Micro: Microbiology 06/09/21 19:33 Sputum, Induced/Lukens Gram Stain - Final 06/09/21 19:33 Sputum, Induced/Lukens Respiratory Culture - Preliminary Culture exhibits no growth. 06/10/21 06:49 Mucosa - Nasopharyngeal Respiratory Panel (PCR) - Final Physical Exam Const no apparent distress Constitutional Narrative: RASS -2 General Appearance: intubated and patient mechanically ventilated HEENT normocephalic and head/scalp atraumatic Mouth: endotracheal tube in place and OG tube in place Eyes PERRL and EOMs intact bilaterally Neck supple General: trachea midline Chest Chest Narrative: Increased AP diameter Chest: symmetrical chest wall rise; Negative for crepitus Resp Auscultation: diminished lung sounds; Negative for rales, rhonchi or wheezes Cardio S1 normal heart sound, S2 normal heart sound, no murmurs, no rub and no gallops GI normal to inspection, nondistended, normoactive bowel sounds Extremity no clubbing, cyanosis or edema Skin no rashes or lesions noted Neuro Sensorium / Orientation: sedated on vent Charges/Coding Procedures Hospitalists Procedures: 27094 Critial Care 1st Hr
[2021-06-12] MEDS: Vancomycin IV 1,000 MG/200 ML BAG 200 MG IV ×2 (06:48→18:32)
[2021-06-12] MEDS: Ipratropium/Albuterol Sulfate 3 ML AMPUL.NEB INHALATION ×4 (07:04→19:18)
[2021-06-12] MEDS: QUEtiapine 25 MG Tablet 50 MG GT (07:35)
--- NOTE | 2021-06-12 07:58 | CPS ---
found pt on TV of 500 instead of 550
--- NOTE | 2021-06-12 08:51 | PN.HOSP_ITS ---
Subjective Subjective Follow-up on Acute COPD exacerbation/pneumonia: Patient seen and examined. No acute events overnight. He remains intubated, on FiO2 35%, PEEP of 8. Objective Data Objective Data Vital Signs: Vital Signs Temp Pulse Resp BP Pulse Ox 97.4 F L 58 L 16 120/65 93 06/12/21 08:00 06/12/21 08:00 06/12/21 08:00 06/12/21 08:00 06/12/21 08:00 Oxygen Flow Rate (L/min) 40 Oxygen Delivery Method Mechanical Ventilator Weight: 86.8 kg Body Mass Index (BMI) 28.0 Intake & Output: Intake and Output for Last 24 Hours 06/10/21 06/11/21 06/12/21 23:59 23:59 23:59 Intake Total 3067.25 / 3095.09 1718.20 / 1967.69 1747.97 / 1747.97 Output Total 900 / 1150 1225 / 1225 300 / 300 Balance 2167.25 / 1945.09 493.20 / 742.69 1447.97 / 1447.97 Lab / Micro Data Result Diagrams: 06/12/21 03:50 06/12/21 03:50 Labs: Laboratory Results - last 24 hr 06/12/21 03:50: WBC 11.0, RBC 4.33 L, Hgb 13.1, Hct 39.0 L, MCV 90.1, MCH 30.3, MCHC 33.6, RDW Std Deviation 48.6 H, RDW Coeff of Bobo 14.9 H, Plt Count 239, MPV 10.0, Immature Gran % (Auto) 1.800 H, Neut % (Auto) 86.4 H, Lymph % (Auto) 5.3 L , [place] % (Auto) 6.2, Eos % (Auto) 0.0, Baso % (Auto) 0.3, Absolute Neuts (auto) 9.5 H, Absolute Lymphs (auto) 0.58 L, Nucleated RBC % 0.2, Differential Comment SCANNED 06/12/21 03:50: Sodium 143, Potassium 4.6, Chloride 109 H, Carbon Dioxide 30.0, Anion Gap 4 L, BUN 49 H, Creatinine 0.96, Estim Creat Clear Calc 72.24, Est GFR (MDRD) Af Amer 100, Est GFR (MDRD) Non-Af 83, BUN/Creatinine Ratio 50.8 H, Glucose 292 H, Calcium 8.6, Magnesium 2.6, Total Bilirubin 0.30, AST 6 L, ALT 14 L, Alkaline Phosphatase 52, Total Protein 5.7 L, Albumin 2.2 L, Globulin 3.5, Albumin/Globulin Ratio 0.6 L Micro: Microbiology 06/09/21 19:33 Sputum, Induced/Lukens Gram Stain - Final 06/09/21 19:33 Sputum, Induced/Lukens Respiratory Culture - Final Culture exhibits no growth. 06/10/21 06:49 Mucosa - Nasopharyngeal Respiratory Panel (PCR) - Final Physical Exam Narrative Physical exam: General: Sedated, intubated HEENT: Atraumatic Oral: Moist Mucosa Neck: Supple Lungs: Diminished to auscultation Cardiovascular: HS I+II, regular, no murmurs Abdomen: Bowel Sounds Present, Soft, Non Tender Extremities: No edema Assessment & Plan Assessment/Plan (1) Acute respiratory failure with hypoxia and hypercapnia: (2) Pneumonia: (3) COPD exacerbation: PLAN: 1. 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 Pneumonia, MRSA negative, continue on vancomycin and Zosyn 3. Acute COPD exacerbation, continue on IV Solu-Medrol 4. Elevated troponin secondary to acute type II non-STEMI 5. Type II DM, HbA1c 6.5, will start ISS with blood glucose checks. 6. DVT prophylaxis - Lovenox SC Charges/Coding Visit Charges Inpatient E&M: 82234 Subs Hosp L2
[2021-06-12] MEDS: Enoxaparin 40 MG/0.4 ML Syringe SC (09:30)
[2021-06-12] MEDS: Chlorhexidine 15 ML PO ×2 (09:30→21:19)
[2021-06-12] MEDS: CHLORHEXIDINE GLUC 2% CLOTH 1 EACH TOWELETTE TOPICAL (09:30)
--- NOTE | 2021-06-12 09:30 | CASEMGMT ---
RN CM Face to Face with for initial transition planning/care coordination assessment as patient is currently intubated and unable to participate in assessment. RN CM introduced self and role at [facility]. Patient lying in bed, alert and oriented. Patient willing to participate in assessment and is able to answer all questions appropriately. Care providers, pharmacy, and demographics verified. wishes for patient to discharge home but agreeable to HHC or SNF if necessary. states she has no further needs or concerns at this time. CM to follow for discharge planning needs that may arise. 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 Patient is independent and able to ambulate stairs normally Transportation: self, DME/HHC: Patient shower chair, raised toilet, walker, nebulizer, pulse ox. No previous SNF. Patient has had HHC in the past but cannot recall agency Disposition Plan: TBD HHC vs SNF pending course of treatment and progress with therapy. Mariza POPEN, RN, CM
[2021-06-12 10:36] LABS: Bedside Glucose 268 mg/dL (74-106)
[2021-06-12] MEDS: Insulin Lispro 100 UNIT/ML INSULN.PEN SC ×3 (10:36→23:48)
[2021-06-12 17:01] LABS: Bedside Glucose 280 mg/dL (74-106)
[2021-06-12] MEDS: Vital AF 1.2 Cal Liquid 1,000 ML 70 ML GT (17:20)
[2021-06-12 19:38] LABS: Vancomycin, Trough Level 12.3 ug/mL (5.0-15.0)
--- NOTE | 2021-06-12 19:52 | PCM.RX.CS ---
Consult Pharmacy has been consulted to manage selected antiobiotic: Vancomycin Type of Consult: Follow-up Suspected Infection: Pneumonia Labs: Sodium 143 mmol/L (136-145) 06/12/21 03:50 Potassium 4.6 mmol/L (3.5-5.1) 06/12/21 03:50 Chloride 109 mmol/L (98-107) H 06/12/21 03:50 Carbon Dioxide 30.0 mmol/L (21.0-32.0) 06/12/21 03:50 Anion Gap 4 (5-15) L 06/12/21 03:50 BUN 49 mg/dL (7-18) H 06/12/21 03:50 Creatinine 0.96 mg/dL (0.70-1.30) 06/12/21 03:50 Est GFR (MDRD) Af Amer 100 mL/min (>60) 06/12/21 03:50 Est GFR (MDRD) Non-Af 83 mL/min (>60) 06/12/21 03:50 BUN/Creatinine Ratio 50.8 RATIO (10-20) H 06/12/21 03:50 Glucose 292 mg/dL (74-106) H 06/12/21 03:50 Vancomycin Trough 12.3 ug/mL (5.0-15.0) 06/12/21 18:30 Microbiology: Microbiology 06/09/21 19:33 Sputum, Induced/Lukens Gram Stain - Final 06/09/21 19:33 Sputum, Induced/Lukens Respiratory Culture - Final Culture exhibits no growth. 06/10/21 06:49 Mucosa - Nasopharyngeal Respiratory Panel (PCR) - Final Goal Trough: 15-20 mcg/mL Pharmacy Plan for Drug Dosing: VANCOMYCIN LEVEL RECEIVED Current Vancomycin Dose: 1000mg IV Q12hr Number of Doses Received: 4 (3 prior to trough draw) Vancomycin Level: 12.3 Hours Since Last Dose: 12hr Renal Function: 0.96 Renal Function Trend: stable Lab/Micro: ngtd Vancomycin Plan/Comments: The patient had a trough drawn which resulted in a value of 12.3 (goal trough 15-20). Will increse the dose slightly to 1250mg IV Q12hr. The patient has already had his evening dose administered, so will start new regimen 06/13/21 @0700. Pending Level: 06/14/21 @0630, prior to 4th dose of new regimen per protocol Pharmacy Service will continue to monitor and adjust dosing as required.
[2021-06-12] MEDS: QUEtiapine 100 MG Tablet GT (21:20)
[2021-06-12] MEDS: Senna/Docusate Sodium 1 Tablet 2 TABLET GT (21:20)
[2021-06-12 23:55] LABS: Bedside Glucose 321 mg/dL (74-106)
[2021-06-13] VITALS (38 sets, daily range): BP systolic 100–178; BP diastolic 55–114; PULSE 48–107; RESP 13–26; TEMP 36–36.7; O2SAT 89–97
[2021-06-13 03:51] LABS: Absolute Lymphocyte Count 0.57 X10^3/uL (0.83-4.51); Absolute Neutrophil Count 8.6 X10^3/uL (2.0-7.7); Basophil# 0.05 X10^3/uL; Basophil% 0.5 % (0-1); Hematocrit 41.2 % (40-54); Hemoglobin 13.7 g/dL (13.0-16.5); Lymphocyte # 0.57 X10^3/ul (0.83-4.51); Lymphocyte % 5.5 % (19-41); Mean Corp Hgb Conc 33.3 g/dL (32-36); Mean Corpuscular Hgb 30.5 pg (27.0-32.0); Mean Corpuscular Volume 91.8 fL (80-94); Mean Platelet Vol. 9.7 fl (6.2-12.0); Monocyte% 5.8 % (0-10); NRBC Flagged by Analyzer 0 % (0-5); Neutrophil # 8.63 X10^3/uL (2.7-7.7); Neutrophil % 83.4 % (47-70); POSITIVE DIFFERENTIAL YES; Platelet Count 217 K/mm3 (150-450); RBC Distribution Width CV 15.4 % (11.6-14.6); RBC Distribution Width SD 51.6 fl (35.1-43.9); Red Blood Count 4.49 M/mm3 (4.6-6.2); White Blood Count 10.4 K/mm3 (4.4-11.0)
[2021-06-13 03:55] LABS: Differential Indicated SCAN CRITERIA MET
[2021-06-13 04:09] LABS: Differential Comment SCANNED
[2021-06-13 04:37] LABS: ALB/GLOB Ratio 0.6 RATIO (0.9-2.4); AST(SGOT) 21 U/L (15-37); Alanine Aminotransfer ALT/SGPT 28 U/L (16-61); Albumin, Serum 2.3 g/dL (3.2-5.0); Alkaline Phosphatase 52 U/L (45-117); Anion Gap 1 (5-15); BUN 43 mg/dL (7-18); BUN/Creat Ratio 45.6 RATIO (10-20); Calcium,Total 8.6 mg/dL (8.5-10.1); Chloride 107 mmol/L (98-107); Creatinine, Serum 0.94 mg/dL (0.70-1.30); EST Glomerular Filtration Rate 85 mL/min (>60); Est Glom Filt Rate - Afr Amer 102 mL/min (>60); Estimated Creatinine Clearance 73.78 ml/min; Globulin 3.6 g/dL (2.2-4.2); Glucose 372 mg/dL (74-106); Potassium 5.2 mmol/L (3.5-5.1); Protein, Total 5.9 g/dL (6.4-8.2); Sodium Level 140 mmol/L (136-145)
[2021-06-13] MEDS: Insulin Lispro 100 UNIT/ML INSULN.PEN SC ×3 (05:22→17:21)
[2021-06-13 05:31] LABS: Allen Test Positive; Base Excess 8 mmol/L (-2 to +2); Bicarbonate 33.9 mmol/L (22-26); Blood Gas Specimen Type ART; FI02 35; Mode CPAP/PS; O2 Delivery Device Adult Vent; PEEP 8; PO2 59 mmHG (75-100); PS 5; SITE L Radial; SO2 87 % (95-99); Total Carbon Dioxide 36 mmol/L; pCO2 63.2 mmHg (35-45); pH 7.34 (7.35-7.45)
--- NOTE | 2021-06-13 05:35 | NURSING ---
0500 fentanyl titration, CPOT 5/5. Pt remains on SBT, redirectable to continue SBT without med titration.
[2021-06-13 05:36] LABS: Bedside Glucose 275 mg/dL (74-106)
--- NOTE | 2021-06-13 06:40 | PCM.PN.INT ---
Assessment & Plan Assessment/Plan (1) Acute respiratory failure with hypoxia and hypercapnia: PLAN: RECOMMENDATIONS: 1. Continue patient on assist control mode mechanical ventilation. Wean FiO2/PEEP for saturations greater than 90%. 2. Continue tube feeds at the current setting. Add basal insulin to sliding scale insulin 3. Continue broad-spectrum antimicrobials, pending culture results. 4. Continue scheduled bronchodilators and IV steroids. 5. Continue appropriate DVT and GI prophylaxis. 6. Plan for daily paired spontaneous awakening and breathing trials. 7. Continue Seroquel therapy. Diurese IMPRESSIONS: 1. Respiratory failure with hypoxemia and hypercapnia, of unclear chronicity The patient has an apparent history of COPD along with chronic tobacco dependency. However, we do not have any records of any prior pulmonary function studies. In addition, it is still unclear if the patient truly utilizes supplemental oxygen at his baseline. The patient did have bilateral interstitial infiltrates noted on chest imaging. Therefore, it is certainly reasonable to continue antimicrobials to cover for an underlying pulmonary infectious process. Echocardiogram did not reveal any significant LV dysfunction. CTA chest was negative for pulmonary embolism. We will plan to continue scheduled bronchodilators and IV steroids. FiO2 and PEEP will be weaned to maintain oxygen saturations at or above 90%. Plan for daily paired spontaneous awakening and breathing trials. Patient responded well to Seroquel therapy. Will attempt diuresis today to see if spontaneous breathing trial will go better. Patient did have adequate ventilation on trial today. 2. Troponin elevation Likely secondary to demand ischemia in the setting of #1. Surface echocardiogram was unremarkable. 3. Chronic tobacco dependency/insulin resistance The exact pack-year smoking history is unclear. Nevertheless, nicotine replacement therapy can be utilized while the patient is admitted to the hospital. Okay to continue tube feeds today from my perspective. We will add sliding scale insulin TIME: 36 minutes of critical care time, independent of procedures, was spent addressing the patient's respiratory failure with hypoxemia and hypercapnia, troponin elevation, review of all data and collaboration with the care team. Subjective Subjective Patient did well overnight. Patient responded well to Seroquel therapy. However, following a 1 hour spontaneous breathing trial, patient had accessory muscle use with desaturation. Patient was placed back on propofol and assist control. Patient was tolerating tube feeds prior to discontinuation for trial. Objective Data Objective Data Vital Signs: Vital Signs Temp Pulse Resp BP Pulse Ox 36.6 C 67 16 127/81 H 92 06/13/21 04:00 06/13/21 06:00 06/13/21 06:00 06/13/21 06:00 06/13/21 06:00 Oxygen Flow Rate (L/min) 40 Oxygen Delivery Method Mechanical Ventilator Weight: 88.5 kg Body Mass Index (BMI) 28.0 Intake & Output: Intake and Output for Last 24 Hours 06/11/21 06/12/21 06/13/21 23:59 23:59 23:59 Intake Total 1718.20 / 1967.69 3479.32 / 4090.20 1092.17 / 1092.17 Output Total 1225 / 1225 875 / 1375 950 / 950 Balance 493.20 / 742.69 2604.32 / 2715.20 142.17 / 142.17 Lab / Micro Data Result Diagrams: 06/13/21 03:42 06/13/21 03:42 Labs: Laboratory Results - last 24 hr 06/12/21 10:31: POC Glucose 268 H 06/12/21 16:56: POC Glucose 280 H 06/12/21 18:30: Vancomycin Trough 12.3 06/12/21 23:47: POC Glucose 321 H 06/13/21 03:42: WBC 10.4, RBC 4.49 L, Hgb 13.7, Hct 41.2, MCV 91.8, MCH 30.5, MCHC 33.3, RDW Std Deviation 51.6 H, RDW Coeff of Bobo 15.4 H, Plt Count 217, MPV 9.7, Immature Gran % (Auto) 4.800 H, Neut % (Auto) 83.4 H, Lymph % (Auto) 5.5 L, [place] % (Auto) 5.8, Eos % (Auto) 0.0, Baso % (Auto) 0.5, Absolute Neuts (auto) 8.6 H, Absolute Lymphs (auto) 0.57 L, Nucleated RBC % 0, Differential Comment SCANNED 06/13/21 03:42: Sodium 140, Potassium 5.2 H, Chloride 107, Carbon Dioxide 32.0, Anion Gap 1 L, BUN 43 H, Creatinine 0.94, Estim Creat Clear Calc 73.78, Est GFR (MDRD) Af Amer 102, Est GFR (MDRD) Non-Af 85, BUN/Creatinine Ratio 45.6 H, Glucose 372 H, Calcium 8.6, Total Bilirubin 0.50, AST 21, ALT 28, Alkaline Phosphatase 52, Total Protein 5.9 L, Albumin 2.3 L, Globulin 3.6, Albumin/Globulin Ratio 0.6 L 06/13/21 05:21: POC Glucose 275 H Micro: Microbiology 06/09/21 19:33 Sputum, Induced/Lukens Gram Stain - Final 06/09/21 19:33 Sputum, Induced/Lukens Respiratory Culture - Final Culture exhibits no growth. 06/10/21 06:49 Mucosa - Nasopharyngeal Respiratory Panel (PCR) - Final ABG Data ABG results: ABG 06/13/21 05:22 Specimen Type ART Sample Site L Radial pH 7.34 L Bicarbonate Actual 33.9 H Total CO2 36 Base Excess 8 H O2 Saturation 87 L O2 % 35 ABG pCO2 63.2 H ABG pO2 59 L Moiz Test Positive O2 Delivery Device Adult Vent Vent Mode CPAP/PS POC PEEP 8 POC Pressure Suppt 5 Physical Exam Const no apparent distress Constitutional Narrative: RASS -2 General Appearance: intubated and patient mechanically ventilated HEENT normocephalic and head/scalp atraumatic Mouth: endotracheal tube in place and OG tube in place Eyes PERRL and EOMs intact bilaterally Neck supple General: trachea midline Chest Chest Narrative: Increased AP diameter Chest: symmetrical chest wall rise; Negative for crepitus Resp Auscultation: diminished lung sounds; Negative for rales, rhonchi or wheezes Cardio S1 normal heart sound, S2 normal heart sound, no murmurs, no rub and no gallops GI normal to inspection, nondistended, normoactive bowel sounds Extremity no clubbing, cyanosis or edema Skin no rashes or lesions noted Neuro Sensorium / Orientation: sedated on vent Charges/Coding Procedures Hospitalists Procedures: [id number] Critial Care 1st Hr
[2021-06-13] MEDS: 0.9% Saline Lock 10 ML Syringe IV ×3 (06:45→13:07)
[2021-06-13] MEDS: Furosemide 40 MG/4 ML Vial IV ×2 (06:58→13:07)
[2021-06-13] MEDS: TITRATION PARAMETER CHANGE 1 EACH IV (06:59)
[2021-06-13] MEDS: CHLORHEXIDINE GLUC 2% CLOTH 1 EACH TOWELETTE TOPICAL (06:59)
[2021-06-13] MEDS: Ipratropium/Albuterol Sulfate 3 ML AMPUL.NEB INHALATION ×4 (07:10→18:50)
[2021-06-13 07:19] LABS: Magnesium 2.7 mg/dL (1.6-2.6); Phosphorus 2.7 mg/dL (2.5-4.9)
[2021-06-13] MEDS: QUEtiapine 100 MG Tablet GT ×2 (07:55→21:09)
[2021-06-13] MEDS: Senna/Docusate Sodium 1 Tablet 2 TABLET GT ×2 (07:55→21:08)
[2021-06-13] MEDS: Insulin Glargine-YFGN 100 UNIT/ML Pen 20 UNIT SC (07:55)
--- NOTE | 2021-06-13 08:35 | PCM.PN.HOSP ---
Subjective Subjective Follow-up on Acute COPD exacerbation/pneumonia: Patient was seen and examined. He failed his spontaneous breathing trial today. Received a dose of Lasix 40 mg IV x1 today. He remains on PEEP of 8, FiO2 35%. No acute events overnight. Objective Data Objective Data Vital Signs: Vital Signs Temp Pulse Resp BP Pulse Ox 97.9 F 56 L 16 121/78 H 92 06/13/21 04:00 06/13/21 07:44 06/13/21 07:10 06/13/21 07:00 06/13/21 07:10 Oxygen Flow Rate (L/min) 40 Oxygen Delivery Method Mechanical Ventilator Weight: 88.5 kg Body Mass Index (BMI) 28.0 Intake & Output: Intake and Output for Last 24 Hours 06/11/21 06/12/21 06/13/21 23:59 23:59 23:59 Intake Total 1718.20 / 1967.69 3479.32 / 4090.20 1440.02 / 1440.02 Output Total 1225 / 1225 875 / 1375 950 / 950 Balance 493.20 / 742.69 2604.32 / 2715.20 490.02 / 490.02 Lab / Micro Data Result Diagrams: 06/13/21 03:42 06/13/21 03:42 Labs: Laboratory Results - last 24 hr 06/12/21 10:31: POC Glucose 268 H 06/12/21 16:56: POC Glucose 280 H 06/12/21 18:30: Vancomycin Trough 12.3 06/12/21 23:47: POC Glucose 321 H 06/13/21 03:42: WBC 10.4, RBC 4.49 L, Hgb 13.7, Hct 41.2, MCV 91.8, MCH 30.5, MCHC 33.3, RDW Std Deviation 51.6 H, RDW Coeff of Bobo 15.4 H, Plt Count 217, MPV 9.7, Immature Gran % (Auto) 4.800 H, Neut % (Auto) 83.4 H, Lymph % (Auto) 5.5 L, [place] % (Auto) 5.8, Eos % (Auto) 0.0, Baso % (Auto) 0.5, Absolute Neuts (auto) 8.6 H, Absolute Lymphs (auto) 0.57 L, Nucleated RBC % 0, Differential Comment SCANNED 06/13/21 03:42: Sodium 140, Potassium 5.2 H, Chloride 107, Carbon Dioxide 32.0, Anion Gap 1 L, BUN 43 H, Creatinine 0.94, Estim Creat Clear Calc 73.78, Est GFR (MDRD) Af Amer 102, Est GFR (MDRD) Non-Af 85, BUN/Creatinine Ratio 45.6 H, Glucose 372 H, Calcium 8.6, Total Bilirubin 0.50, AST 21, ALT 28, Alkaline Phosphatase 52, Total Protein 5.9 L, Albumin 2.3 L, Globulin 3.6, Albumin/Globulin Ratio 0.6 L 06/13/21 03:42: Phosphorus 2.7, Magnesium 2.7 H 06/13/21 05:21: POC Glucose 275 H Micro: Microbiology 06/09/21 19:33 Sputum, Induced/Lukens Gram Stain - Final 06/09/21 19:33 Sputum, Induced/Lukens Respiratory Culture - Final Culture exhibits no growth. 06/10/21 06:49 Mucosa - Nasopharyngeal Respiratory Panel (PCR) - Final ABG Data ABG results: ABG 06/13/21 05:22 Specimen Type ART Sample Site L Radial pH 7.34 L Bicarbonate Actual 33.9 H Total CO2 36 Base Excess 8 H O2 Saturation 87 L O2 % 35 ABG pCO2 63.2 H ABG pO2 59 L Moiz Test Positive O2 Delivery Device Adult Vent Vent Mode CPAP/PS POC PEEP 8 POC Pressure Suppt 5 Physical Exam Narrative Physical exam: General: Sedated, intubated HEENT: Atraumatic Oral: Moist Mucosa Neck: Supple Lungs: Diminished to auscultation Cardiovascular: HS I+II, regular, no murmurs Abdomen: Bowel Sounds Present, Soft, Non Tender Extremities: No edema Assessment & Plan Assessment/Plan (1) Acute respiratory failure with hypoxia and hypercapnia: (2) Pneumonia: QUALIFIERS: Laterality: right Lung location: lower lobe of lung (3) COPD exacerbation: PLAN: 1. Acute combined respiratory failure secondary to Acute COPD exacerbation/pneumonia Remains intubated on FiO2 35%, PEEP of 8 [employer] following 2. Pneumonia, MRSA negative, continue on vancomycin and Zosyn 3. Acute COPD exacerbation, continue on IV Solu-Medrol 4. Elevated troponin secondary to acute type II non-STEMI 5. Type II DM, HbA1c 6.5, blood sugars have been uncontrolled Started on Lantus, continue on ISS with blood glucose checks. 6. DVT prophylaxis - Lovenox SC Charges/Coding Visit Charges Inpatient E&M: 63989 Subs Hosp L2
[2021-06-13] MEDS: Chlorhexidine 15 ML PO ×2 (09:56→21:31)
[2021-06-13] MEDS: Enoxaparin 40 MG/0.4 ML Syringe SC (09:57)
[2021-06-13] MEDS: Propofol 10MG/Ml 1,000 MG/100 ML Bottle 8 MG CONT INF (11:01)
[2021-06-13] MEDS: Vital AF 1.2 Cal Liquid 1,000 ML 70 ML GT (11:13)
[2021-06-13 11:26] LABS: Bedside Glucose 246 mg/dL (74-106)
[2021-06-13 16:29] LABS: Potassium 4.2 mmol/L (3.5-5.1)
[2021-06-13 16:51] LABS: Magnesium 2.5 mg/dL (1.6-2.6)
[2021-06-13] MEDS: Propofol 10MG/Ml 1,000 MG/100 ML Bottle 23.9 MG CONT INF (16:54)
[2021-06-13 17:25] LABS: Bedside Glucose 297 mg/dL (74-106)
[2021-06-13] MEDS: QUEtiapine 25 MG Tablet 50 MG GT (21:09)
[2021-06-13] MEDS: Propofol 10MG/Ml 1,000 MG/100 ML Bottle 18.6 MG CONT INF (22:14)
[2021-06-14] VITALS (38 sets, daily range): BP systolic 83–156; BP diastolic 56–93; PULSE 49–115; RESP 14–23; TEMP 36.3–37.3; O2SAT 90–96
[2021-06-14] MEDS: Insulin Lispro 100 UNIT/ML INSULN.PEN SC ×4 (00:03→17:06)
[2021-06-14 00:11] LABS: Bedside Glucose 253 mg/dL (74-106)
[2021-06-14 04:10] LABS: Absolute Lymphocyte Count 0.56 X10^3/uL (0.83-4.51); Absolute Neutrophil Count 10.2 X10^3/uL (2.0-7.7); Basophil# 0.02 X10^3/uL; Basophil% 0.2 % (0-1); Hematocrit 41.8 % (40-54); Lymphocyte # 0.56 X10^3/ul (0.83-4.51); Lymphocyte % 4.8 % (19-41); Mean Corp Hgb Conc 33.5 g/dL (32-36); Mean Corpuscular Hgb 30.8 pg (27.0-32.0); Mean Corpuscular Volume 91.9 fL (80-94); Mean Platelet Vol. 9.9 fl (6.2-12.0); Monocyte# 0.56 X10^3/uL; Monocyte% 4.8 % (0-10); NRBC Flagged by Analyzer 0 % (0-5); Neutrophil # 10.19 X10^3/uL (2.7-7.7); Neutrophil % 87.3 % (47-70); POSITIVE DIFFERENTIAL YES; Platelet Count 225 K/mm3 (150-450); RBC Distribution Width CV 15.2 % (11.6-14.6); RBC Distribution Width SD 50.2 fl (35.1-43.9); Red Blood Count 4.55 M/mm3 (4.6-6.2); White Blood Count 11.7 K/mm3 (4.4-11.0)
[2021-06-14 04:13] LABS: Differential Indicated SCAN CRITERIA MET
[2021-06-14 04:23] LABS: ALB/GLOB Ratio 0.7 RATIO (0.9-2.4); AST(SGOT) 36 U/L (15-37); Alanine Aminotransfer ALT/SGPT 60 U/L (16-61); Albumin, Serum 2.4 g/dL (3.2-5.0); Alkaline Phosphatase 49 U/L (45-117); Anion Gap 4 (5-15); BUN 43 mg/dL (7-18); BUN/Creat Ratio 45.5 RATIO (10-20); Calcium,Total 8.1 mg/dL (8.5-10.1); Chloride 104 mmol/L (98-107); Creatinine, Serum 0.94 mg/dL (0.70-1.30); EST Glomerular Filtration Rate 84 mL/min (>60); Est Glom Filt Rate - Afr Amer 102 mL/min (>60); Estimated Creatinine Clearance 73.78 ml/min; Globulin 3.5 g/dL (2.2-4.2); Glucose 288 mg/dL (74-106); Potassium 4.2 mmol/L (3.5-5.1); Protein, Total 5.9 g/dL (6.4-8.2); Sodium Level 144 mmol/L (136-145)
[2021-06-14 04:59] LABS: Differential Comment SCANNED
[2021-06-14] MEDS: Propofol 10MG/Ml 1,000 MG/100 ML Bottle 13.3 MG CONT INF ×3 (05:10→17:12)
[2021-06-14] MEDS: CHLORHEXIDINE GLUC 2% CLOTH 1 EACH TOWELETTE TOPICAL (05:13)
--- NOTE | 2021-06-14 06:57 | PN.CC_ITS ---
Assessment & Plan Assessment/Plan (1) Acute respiratory failure with hypoxia and hypercapnia: PLAN: RECOMMENDATIONS: 1. Continue patient on assist control mode mechanical ventilation. Wean FiO2/PEEP for saturations greater than 90%. 2. Continue tube feeds at the current setting. Increase basal insulin to sliding scale insulin 3. Continue broad-spectrum antimicrobials, pending culture results. 4. Continue scheduled bronchodilators and IV steroids. 5. Continue appropriate DVT and GI prophylaxis. Initiate aggressive bowel regimen 6. Plan for daily paired spontaneous awakening and breathing trials. 7. Increase Seroquel therapy. Diurese IMPRESSIONS: 1. Respiratory failure with hypoxemia and hypercapnia, of unclear chronicity The patient has an apparent history of COPD along with chronic tobacco dependency. However, we do not have any records of any prior pulmonary function studies. In addition, it is still unclear if the patient truly utilizes supplemental oxygen at his baseline. The patient did have bilateral interstitial infiltrates noted on chest imaging. Therefore, it is certainly reasonable to continue antimicrobials to cover for an underlying pulmonary infectious process. Echocardiogram did not reveal any significant LV dysfunction. CTA chest was negative for pulmonary embolism. We will plan to continue scheduled bronchodilators and IV steroids. FiO2 and PEEP will be weaned to maintain oxygen saturations at or above 90%. Plan for daily paired spontaneous awakening and breathing trials. Patient will be titrated on Seroquel therapy given relative contraindication to Precedex with bradycardia. Will attempt diuresis today to see if spontaneous breathing trial will go better. 2. Troponin elevation Likely secondary to demand ischemia in the setting of #1. Surface echocardiogram was unremarkable. 3. Chronic tobacco dependency/insulin resistance The exact pack-year smoking history is unclear. Nevertheless, nicotine replacement therapy can be utilized while the patient is admitted to the hospital. Okay to continue tube feeds today from my perspective. We will add sliding scale insulin TIME: 35 minutes of critical care time, independent of procedures, was spent addressing the patient's respiratory failure with hypoxemia and hypercapnia, troponin elevation, review of all data and collaboration with the care team. Subjective Subjective Patient did okay overnight. Patient did have some bradycardia and trigeminy noted. Patient got significantly agitated this morning and was unable to have a spontaneous breathing trial despite an extra 50 mg of Seroquel overnight. Patient has yet to have a bowel movement and has been noted to have some abdominal distention. Objective Data Objective Data Vital Signs: Vital Signs Temp Pulse Resp BP Pulse Ox 36.6 C 71 16 150/90 H 95 06/14/21 04:00 06/14/21 05:00 06/14/21 05:00 06/14/21 05:00 06/14/21 05:00 Oxygen Flow Rate (L/min) 40 Oxygen Delivery Method Mechanical Ventilator Weight: 87 kg Body Mass Index (BMI) 28.0 Intake & Output: Intake and Output for Last 24 Hours 06/12/21 06/13/21 06/14/21 23:59 23:59 23:59 Intake Total 3479.32 / 4090.20 3544.09 / 4317.19 1598.71 / 1598.71 Output Total 875 / 1375 4150 / 4500 750 / 750 Balance 2604.32 / 2715.20 -605.91 / -182.81 848.71 / 848.71 Lab / Micro Data Result Diagrams: 06/14/21 04:00 06/14/21 04:00 Labs: Laboratory Results - last 24 hr 06/13/21 03:42: Phosphorus 2.7, Magnesium 2.7 H 06/13/21 11:11: POC Glucose 246 H 06/13/21 16:03: Potassium 4.2 06/13/21 16:03: Magnesium 2.5 06/13/21 17:20: POC Glucose 297 H 06/14/21 00:02: POC Glucose 253 H 06/14/21 04:00: WBC 11.7 H, RBC 4.55 L, Hgb 14.0, Hct 41.8, MCV 91.9, MCH 30.8, MCHC 33.5, RDW Std Deviation 50.2 H, RDW Coeff of Bobo 15.2 H, Plt Count 225, MPV 9.9, Immature Gran % (Auto) 2.900 H, Neut % (Auto) 87.3 H, Lymph % (Auto) 4.8 L, [place] % (Auto) 4.8, Eos % (Auto) 0.0, Baso % (Auto) 0.2, Absolute Neuts (auto) 10.2 H, Absolute Lymphs (auto) 0.56 L, Nucleated RBC % 0, Differential Comment SCANNED 06/14/21 04:00: Sodium 144, Potassium 4.2, Chloride 104, Carbon Dioxide 36.0 H, Anion Gap 4 L, BUN 43 H, Creatinine 0.94, Estim Creat Clear Calc 73.78, Est GFR (MDRD) Af Amer 102, Est GFR (MDRD) Non-Af 84, BUN/Creatinine Ratio 45.5 H, Glucose 288 H, Calcium 8.1 L, Total Bilirubin 0.60, AST 36, ALT 60, Alkaline Phosphatase 49, Total Protein 5.9 L, Albumin 2.4 L, Globulin 3.5, Albumin/Globulin Ratio 0.7 L Micro: Microbiology 06/09/21 19:33 Sputum, Induced/Lukens Gram Stain - Final 06/09/21 19:33 Sputum, Induced/Lukens Respiratory Culture - Final Culture exhibits no growth. 06/10/21 06:49 Mucosa - Nasopharyngeal Respiratory Panel (PCR) - Final Physical Exam Const no apparent distress Constitutional Narrative: RASS -2 General Appearance: intubated and patient mechanically ventilated HEENT normocephalic and head/scalp atraumatic Mouth: endotracheal tube in place and OG tube in place Eyes PERRL and EOMs intact bilaterally Neck supple General: trachea midline Chest Chest Narrative: Increased AP diameter Chest: symmetrical chest wall rise; Negative for crepitus Resp Auscultation: diminished lung sounds; Negative for rales, rhonchi or wheezes Cardio S1 normal heart sound, S2 normal heart sound, no murmurs, no rub and no gallops GI soft to palpation and non-tender GI Narrative: Distended Auscultation: normoactive bowel sounds Palpation: Negative for guarding or rigid Extremity General Extremity: edema bilateral (1+); Negative for clubbing or cyanosis Skin no rashes or lesions noted Neuro Sensorium / Orientation: sedated on vent Charges/Coding Procedures Hospitalists Procedures: [id number] Critial Care 1st Hr
[2021-06-14 07:13] LABS: Vancomycin, Trough Level 16.5 ug/mL (5.0-15.0)
[2021-06-14] MEDS: Vital AF 1.2 Cal Liquid 1,000 ML 70 ML GT ×2 (07:24→16:43)
--- NOTE | 2021-06-14 07:24 | PCM.PN.HOSP ---
Subjective Subjective Follow-up on Acute COPD exacerbation/pneumonia: Patient was seen and examined. He failed his spontaneous breathing trial this morning. His abdomen appears to be distended. He has not had a bowel movement since admission. He has been started on some medications. Telemetry shows PVCs. Magnesium was 2.5 yesterday. Objective Data Objective Data Vital Signs: Vital Signs Temp Pulse Resp BP Pulse Ox 97.8 F 58 L 16 109/74 94 06/14/21 04:00 06/14/21 07:00 06/14/21 07:00 06/14/21 07:00 06/14/21 07:00 Oxygen Flow Rate (L/min) 40 Oxygen Delivery Method Mechanical Ventilator Weight: 87 kg Body Mass Index (BMI) 28.0 Intake & Output: Intake and Output for Last 24 Hours 06/12/21 06/13/21 06/14/21 23:59 23:59 23:59 Intake Total 3479.32 / 4090.20 3544.09 / 4317.19 1638.09 / 1638.09 Output Total 875 / 1375 4150 / 4500 750 / 750 Balance 2604.32 / 2715.20 -605.91 / -182.81 888.09 / 888.09 Lab / Micro Data Result Diagrams: 06/14/21 04:00 06/14/21 04:00 Labs: Laboratory Results - last 24 hr 06/13/21 11:11: POC Glucose 246 H 06/13/21 16:03: Potassium 4.2 06/13/21 16:03: Magnesium 2.5 06/13/21 17:20: POC Glucose 297 H 06/14/21 00:02: POC Glucose 253 H 06/14/21 04:00: WBC 11.7 H, RBC 4.55 L, Hgb 14.0, Hct 41.8, MCV 91.9, MCH 30.8, MCHC 33.5, RDW Std Deviation 50.2 H, RDW Coeff of Bobo 15.2 H, Plt Count 225, MPV 9.9, Immature Gran % (Auto) 2.900 H, Neut % (Auto) 87.3 H, Lymph % (Auto) 4.8 L, [place] % (Auto) 4.8, Eos % (Auto) 0.0, Baso % (Auto) 0.2, Absolute Neuts (auto) 10.2 H, Absolute Lymphs (auto) 0.56 L, Nucleated RBC % 0, Differential Comment SCANNED 06/14/21 04:00: Sodium 144, Potassium 4.2, Chloride 104, Carbon Dioxide 36.0 H, Anion Gap 4 L, BUN 43 H, Creatinine 0.94, Estim Creat Clear Calc 73.78, Est GFR (MDRD) Af Amer 102, Est GFR (MDRD) Non-Af 84, BUN/Creatinine Ratio 45.5 H, Glucose 288 H, Calcium 8.1 L, Total Bilirubin 0.60, AST 36, ALT 60, Alkaline Phosphatase 49, Total Protein 5.9 L, Albumin 2.4 L, Globulin 3.5, Albumin/Globulin Ratio 0.7 L 06/14/21 06:35: Vancomycin Trough 16.5 H Micro: Microbiology 06/09/21 19:33 Sputum, Induced/Lukens Gram Stain - Final 06/09/21 19:33 Sputum, Induced/Lukens Respiratory Culture - Final Culture exhibits no growth. 06/10/21 06:49 Mucosa - Nasopharyngeal Respiratory Panel (PCR) - Final Physical Exam Narrative Physical exam: General: Sedated, intubated HEENT: Atraumatic Oral: Moist Mucosa Neck: Supple Lungs: Diminished to auscultation Cardiovascular: HS I+II, regular, no murmurs Abdomen: Bowel Sounds Present, Soft, Non Tender Extremities: No edema Assessment & Plan Assessment/Plan (1) Acute respiratory failure with hypoxia and hypercapnia: (2) Pneumonia: QUALIFIERS: Laterality: right Lung location: lower lobe of lung Pneumonia type: due to unspecified organism Qualified Code(s): J18.9 - Pneumonia, unspecified organism (3) COPD exacerbation: PLAN: 1. Acute combined respiratory failure secondary to Acute COPD exacerbation/pneumonia Failed SBT this morning Remains intubated on FiO2 35%, PEEP of 5 [employer] following 2. Pneumonia, MRSA negative, continue on vancomycin and Zosyn(day 5) 3. Acute COPD exacerbation, continue on IV Solu-Medrol 4. Elevated troponin secondary to acute type II non-STEMI, Will continue to monitor 5. Type II DM, HbA1c 6.5, blood sugars have been uncontrolled Continue on increased Lantus, continue on ISS with blood glucose checks. 6. DVT prophylaxis - Lovenox SC 7. GI PPx- PPI Charges/Coding Visit Charges Inpatient E&M: 78766 Subs Hosp L2
[2021-06-14] MEDS: Chlorhexidine 15 ML PO ×2 (07:25→21:41)
[2021-06-14] MEDS: Enoxaparin 40 MG/0.4 ML Syringe SC (07:25)
[2021-06-14] MEDS: QUEtiapine 100 MG Tablet GT (07:26)
[2021-06-14] MEDS: Senna/Docusate Sodium 1 Tablet 2 TABLET GT ×2 (07:26→21:25)
[2021-06-14] MEDS: Ipratropium/Albuterol Sulfate 3 ML AMPUL.NEB INHALATION ×4 (07:29→23:08)
[2021-06-14] MEDS: Insulin Glargine-YFGN 100 UNIT/ML Pen 30 UNIT SC (07:36)
--- NOTE | 2021-06-14 07:54 | PCM.RX.CS ---
Consult Pharmacy has been consulted to manage selected antiobiotic: Vancomycin Type of Consult: Follow-up Suspected Infection: Pneumonia Labs: Sodium 144 mmol/L (136-145) 06/14/21 04:00 Potassium 4.2 mmol/L (3.5-5.1) 06/14/21 04:00 Chloride 104 mmol/L (98-107) 06/14/21 04:00 Carbon Dioxide 36.0 mmol/L (21.0-32.0) H 06/14/21 04:00 Anion Gap 4 (5-15) L 06/14/21 04:00 BUN 43 mg/dL (7-18) H 06/14/21 04:00 Creatinine 0.94 mg/dL (0.70-1.30) 06/14/21 04:00 Est GFR (MDRD) Af Amer 102 mL/min (>60) 06/14/21 04:00 Est GFR (MDRD) Non-Af 84 mL/min (>60) 06/14/21 04:00 BUN/Creatinine Ratio 45.5 RATIO (10-20) H 06/14/21 04:00 Glucose 288 mg/dL (74-106) H 06/14/21 04:00 Vancomycin Trough 16.5 ug/mL (5.0-15.0) H 06/14/21 06:35 Microbiology: Microbiology 06/09/21 19:33 Sputum, Induced/Lukens Gram Stain - Final 06/09/21 19:33 Sputum, Induced/Lukens Respiratory Culture - Final Culture exhibits no growth. 06/10/21 06:49 Mucosa - Nasopharyngeal Respiratory Panel (PCR) - Final Pharmacy Plan for Drug Dosing: VANCOMYCIN LEVEL RECEIVED Current Vancomycin Dose: 1250MG Q12H Number of Doses Received: 7 (6 PRIOR TO TROUGH) Vancomycin Level: 16.5 MG/DL Hours Since Last Dose: 12 Renal Function: SCR 0.94, CRCL 73.8 ML/MIN Renal Function Trend: STABLE Lab/Micro: NG Vancomycin Plan/Comments: TROUGH IS THERAPEUTIC BUT WAS SCHEDULED PRIOR TO 3RD DOSE FOR A Q12H REGIMEN. WILL CONTINUE CURRENT DOSING SINCE TROUGH WAS IN RANGE BUT WILL ORDER A TROUGH FOR TOMORROW MORNING TO MAKE SURE TROUGH IS THERAPEUTIC ONCE STEADY STATE IS REACHED WITH LAST DOSING CHANGE. Pending Level: 06/15/21 @ 0630 Pharmacy Service will continue to monitor and adjust dosing as required.
[2021-06-14] MEDS: Furosemide 40 MG/4 ML Vial IV ×3 (08:34→21:25)
[2021-06-14] MEDS: Polyethylene Glycol 3350 17 GM PACKET PO ×2 (08:34→21:25)
[2021-06-14] MEDS: QUEtiapine 25 MG Tablet 50 MG GT (09:24)
[2021-06-14] MEDS: Magnesium Hydroxide 30 ML UDC PO (10:05)
[2021-06-14 11:15] LABS: Bedside Glucose 262 mg/dL (74-106)
[2021-06-14 11:20] LABS: Bedside Glucose 270 mg/dL (74-106)
[2021-06-14] MEDS: Bisacodyl 10 MG Suppository RC (14:58)
[2021-06-14] MEDS: Magnesium Citrate 300 ML 150 ML PO (16:38)
[2021-06-14 17:10] LABS: Bedside Glucose 277 mg/dL (74-106)
[2021-06-14] MEDS: QUEtiapine 100 MG Tablet 150 MG PO (21:25)
[2021-06-15] VITALS (38 sets, daily range): BP systolic 84–140; BP diastolic 52–105; PULSE 70–128; RESP 16–29; TEMP 36.3–37.1; O2SAT 48–98
[2021-06-15] MEDS: Propofol 10MG/Ml 1,000 MG/100 ML Bottle 15.9 MG CONT INF (00:13)
[2021-06-15] MEDS: Insulin Lispro 100 UNIT/ML INSULN.PEN SC ×2 (01:51→05:34)
[2021-06-15 02:01] LABS: Bedside Glucose 297 mg/dL (74-106)
[2021-06-15] MEDS: CHLORHEXIDINE GLUC 2% CLOTH 1 EACH TOWELETTE TOPICAL (03:15)
--- NOTE | 2021-06-15 03:22 | NURSING ---
0300- Patient incontinent of large amount of stool, linens changed and patient bathed. Tube feed turned off during bath and repositioning but patient coughs and vomits x2 moderate amount of tube feed when turned on side, mouth suctioned and ET tube suctioned, patient's OG hooked up to wall suction and 250 cc of residual suctioned out.
[2021-06-15] MEDS: Ipratropium/Albuterol Sulfate 3 ML AMPUL.NEB INHALATION ×5 (03:33→18:58)
[2021-06-15 04:46] LABS: Absolute Lymphocyte Count 0.59 X10^3/uL (0.83-4.51); Absolute Neutrophil Count 17.3 X10^3/uL (2.0-7.7); Basophil# 0.03 X10^3/uL; Basophil% 0.2 % (0-1); Eosinophil# 0.01 X10^3/uL; Eosinophils% 0.1 % (0-5); Hematocrit 41.3 % (40-54); Hemoglobin 13.8 g/dL (13.0-16.5); Lymphocyte # 0.59 X10^3/ul (0.83-4.51); Lymphocyte % 3.1 % (19-41); Mean Corp Hgb Conc 33.4 g/dL (32-36); Mean Corpuscular Hgb 30.5 pg (27.0-32.0); Mean Corpuscular Volume 91.2 fL (80-94); Mean Platelet Vol. 10.6 fl (6.2-12.0); Monocyte# 0.71 X10^3/uL; Monocyte% 3.7 % (0-10); NRBC Flagged by Analyzer 0.1 % (0-5); Neutrophil # 17.32 X10^3/uL (2.7-7.7); Neutrophil % 91.2 % (47-70); POSITIVE COUNT YES; POSITIVE DIFFERENTIAL YES; RBC Distribution Width CV 15.3 % (11.6-14.6); RBC Distribution Width SD 50.3 fl (35.1-43.9); Red Blood Count 4.53 M/mm3 (4.6-6.2)
[2021-06-15 04:50] LABS: Differential Indicated SCAN CRITERIA MET
[2021-06-15 05:00] LABS: Anion Gap 4 (5-15); BUN 55 mg/dL (7-18); BUN/Creat Ratio 40.7 RATIO (10-20); Calcium,Total 8.3 mg/dL (8.5-10.1); Chloride 96 mmol/L (98-107); Creatinine, Serum 1.35 mg/dL (0.70-1.30); EST Glomerular Filtration Rate 56 mL/min (>60); Est Glom Filt Rate - Afr Amer 68 mL/min (>60); Estimated Creatinine Clearance 51.37 ml/min; Glucose 280 mg/dL (74-106); Potassium 4.5 mmol/L (3.5-5.1); Sodium Level 139 mmol/L (136-145)
[2021-06-15] MEDS: Furosemide 40 MG/4 ML Vial IV (05:35)
[2021-06-15 05:40] LABS: Bedside Glucose 246 mg/dL (74-106)
--- NOTE | 2021-06-15 06:00 | RAD_ITS ---
EXAM: XR Chest, 1 View CLINICAL INDICATION: 65 years old, Male; Possible Aspiration TECHNIQUE: Frontal view of the chest. This report was created using [employer] report generation technology. COMPARISON: None. FINDINGS: Lungs and pleural spaces: Consolidative infiltrates or atelectasis in the lung bases which are more prominent on the prior study. No pneumothorax. No effusion. Heart: Unremarkable. Cardiac silhouette not enlarged. Mediastinum: Central airways and mediastinal contour are unremarkable. Bones/joints: Postoperative changes cervical spine. Soft tissues: Unremarkable. Vasculature: Calcified aorta. Tubes, lines and devices: The endotracheal tube (ETT) is in satisfactory position with tip 5.5 cm above the rula. Enteric tube tip in the stomach. RAD/Chest 1 View (Portable) IMPRESSION: Consolidative infiltrates or atelectasis in the lung bases which are more prominent on the prior study. Electronically Signed: Bebeto Dial MD at 6:49 EDT ,
[2021-06-15 06:25] LABS: Anisocytosis 1+; Platelet Count 100 K/mm3 (150-450)
--- NOTE | 2021-06-15 06:34 | PCM.PN.INT ---
Assessment & Plan Assessment/Plan (1) Acute respiratory failure with hypoxia and hypercapnia: PLAN: RECOMMENDATIONS: 1. Continue patient on assist control mode mechanical ventilation. Wean FiO2/PEEP for saturations greater than 90%. 2. Continue tube feeds at the current setting. Continue basal insulin and sliding scale insulin 3. Continue broad-spectrum antimicrobials, pending culture results. 4. Continue scheduled bronchodilators and IV steroids. 5. Continue appropriate DVT and GI prophylaxis. Continue aggressive bowel regimen 6. Plan for daily paired spontaneous awakening and breathing trials. Spontaneous breathing trial today. 7. Continue Seroquel and diuresis 8. Possible transition to Precedex if unable to tolerate SBT today IMPRESSIONS: 1. Respiratory failure with hypoxemia and hypercapnia, of unclear chronicity The patient has an apparent history of COPD along with chronic tobacco dependency. However, we do not have any records of any prior pulmonary function studies. In addition, it is still unclear if the patient truly utilizes supplemental oxygen at his baseline. The patient did have bilateral interstitial infiltrates noted on chest imaging. Therefore, it is certainly reasonable to continue antimicrobials to cover for an underlying pulmonary infectious process. Echocardiogram did not reveal any significant LV dysfunction. CTA chest was negative for pulmonary embolism. We will plan to continue scheduled bronchodilators and IV steroids. FiO2 and PEEP will be weaned to maintain oxygen saturations at or above 90%. Plan for daily paired spontaneous awakening and breathing trials. Patient will be titrated on Seroquel therapy given relative contraindication to Precedex with bradycardia. No aspiration was noted on chest x-ray. We will proceed with a spontaneous breathing trial. If patient is not able to tolerate this, we will likely have to transition to Precedex therapy despite high Seroquel needs. Continue with optimization otherwise 2. Troponin elevation Likely secondary to demand ischemia in the setting of #1. Surface echocardiogram was unremarkable. 3. Chronic tobacco dependency/insulin resistance The exact pack-year smoking history is unclear. Nevertheless, nicotine replacement therapy can be utilized while the patient is admitted to the hospital. Okay to continue tube feeds today from my perspective. We will add sliding scale insulin TIME: 33 minutes of critical care time, independent of procedures, was spent addressing the patient's respiratory failure with hypoxemia and hypercapnia, troponin elevation, review of all data and collaboration with the care team. Subjective Subjective The patient did okay overnight. The patient did have a large bowel movement early this morning. On cleaning up, patient did have an emesis. Chest x-ray was ordered and spontaneous breathing trial was delayed until results were available. Patient reportedly had tolerated tube feeds prior to this situation. Oxygenation has remained stable. Patient is directable this morning. Objective Data Objective Data Vital Signs: Vital Signs Temp Pulse Resp BP Pulse Ox 36.3 C L 71 16 98/61 98 06/15/21 04:00 06/15/21 06:00 06/15/21 06:00 06/15/21 06:00 06/15/21 06:00 Oxygen Flow Rate (L/min) 45 Oxygen Delivery Method Mechanical Ventilator Weight: 87 kg Body Mass Index (BMI) 28.0 Intake & Output: Intake and Output for Last 24 Hours 06/13/21 06/14/21 06/15/21 23:59 23:59 23:59 Intake Total 3544.09 / 4317.19 4314.82 / 4994.76 968.11 / 968.11 Output Total 4150 / 4500 3350 / 3750 400 / 400 Balance -605.91 / -182.81 964.82 / 1244.76 568.11 / 568.11 Lab / Micro Data Result Diagrams: 06/15/21 04:25 06/15/21 04:25 Labs: Laboratory Results - last 24 hr 06/14/21 06:35: Vancomycin Trough 16.5 H 06/14/21 06:47: POC Glucose 262 H 06/14/21 11:13: POC Glucose 270 H 06/14/21 17:04: POC Glucose 277 H 06/15/21 01:52: POC Glucose 297 H 06/15/21 04:25: WBC 19.0 H, RBC 4.53 L, Hgb 13.8, Hct 41.3, MCV 91.2, MCH 30.5, MCHC 33.4, RDW Std Deviation 50.3 H, RDW Coeff of Bobo 15.3 H, Plt Count 100 L, MPV 10.6, Immature Gran % (Auto) 1.700 H, Neut % (Auto) 91.2 H, Lymph % (Auto) 3.1 L, [place] % (Auto) 3.7, Eos % (Auto) 0.1, Baso % (Auto) 0.2, Absolute Neuts (auto) 17.3 H, Absolute Lymphs (auto) 0.59 L, Nucleated RBC % 0.1, Anisocytosis 1+ 06/15/21 04:25: Sodium 139, Potassium 4.5, Chloride 96 L, Carbon Dioxide 39.0 H, Anion Gap 4 L, BUN 55 H, Creatinine 1.35 H, Estim Creat Clear Calc 51.37, Est GFR (MDRD) Af Amer 68, Est GFR (MDRD) Non-Af 56 L, BUN/Creatinine Ratio 40.7 H, Glucose 280 H, Calcium 8.3 L 06/15/21 05:33: POC Glucose 246 H Micro: Microbiology 06/09/21 19:33 Sputum, Induced/Lukens Gram Stain - Final 06/09/21 19:33 Sputum, Induced/Lukens Respiratory Culture - Final Culture exhibits no growth. 06/10/21 06:49 Mucosa - Nasopharyngeal Respiratory Panel (PCR) - Final Physical Exam Const no apparent distress Constitutional Narrative: RASS -1 General Appearance: intubated and patient mechanically ventilated HEENT normocephalic and head/scalp atraumatic Mouth: endotracheal tube in place and OG tube in place Eyes PERRL and EOMs intact bilaterally Neck supple General: trachea midline Chest Chest Narrative: Increased AP diameter Chest: symmetrical chest wall rise; Negative for crepitus Resp Auscultation: diminished lung sounds; Negative for rales, rhonchi or wheezes Cardio S1 normal heart sound, S2 normal heart sound, no murmurs, no rub and no gallops GI soft to palpation and non-tender GI Narrative: Much less distended today Auscultation: normoactive bowel sounds Palpation: Negative for guarding or rigid Extremity General Extremity: edema bilateral (1+); Negative for clubbing or cyanosis Skin no rashes or lesions noted Neuro Sensorium / Orientation: sedated on vent Charges/Coding Procedures Hospitalists Procedures: 99978 Critial Care 1st Hr
[2021-06-15] MEDS: Chlorhexidine 15 ML PO (07:48)
[2021-06-15] MEDS: Enoxaparin 40 MG/0.4 ML Syringe SC (09:54)
[2021-06-15 10:06] LABS: Bedside Glucose 133 mg/dL (74-106)
[2021-06-15 10:36] LABS: Allen Test Positive; Base Excess 15 mmol/L (-2 to +2); Bicarbonate 39.4 mmol/L (22-26); Blood Gas Specimen Type ART; FI02 40; Mode CPAP/PS; O2 Delivery Device Adult Vent; PEEP 5; PO2 66 mmHG (75-100); PS 5; SITE L Radial; SO2 93 % (95-99); Total Carbon Dioxide 41 mmol/L; pCO2 57.9 mmHg (35-45); pH 7.44 (7.35-7.45)
--- NOTE | 2021-06-15 11:06 | PN.HOSP_ITS ---
Subjective Subjective Follow-up on Acute respiratory failure/COPD exacerbation/pneumonia: Patient was seen and examined. He was extubated this morning. He was seen in mild respiratory distress at time of being seen. He had a large bowel movement today. He was given more stool softeners. Objective Data Objective Data Vital Signs: Vital Signs Temp Pulse Resp BP Pulse Ox 98.5 F 109 H 24 H 119/81 H 93 06/15/21 08:00 06/15/21 10:22 06/15/21 10:22 06/15/21 10:00 06/15/21 10:22 Oxygen Flow Rate (L/min) 60 Oxygen Delivery Method Airvo Weight: 87 kg Body Mass Index (BMI) 28.0 Intake & Output: Intake and Output for Last 24 Hours 06/13/21 06/14/21 06/15/21 23:59 23:59 23:59 Intake Total 3544.09 / 4317.19 4314.82 / 4994.76 1018.11 / 1018.11 Output Total 4150 / 4500 3350 / 3750 1800 / 1800 Balance -605.91 / -182.81 964.82 / 1244.76 -781.89 / -781.89 Lab / Micro Data Result Diagrams: 06/15/21 04:25 06/15/21 04:25 Labs: Laboratory Results - last 24 hr 06/14/21 06:47: POC Glucose 262 H 06/14/21 11:13: POC Glucose 270 H 06/14/21 17:04: POC Glucose 277 H 06/15/21 01:52: POC Glucose 297 H 06/15/21 04:25: WBC 19.0 H, RBC 4.53 L, Hgb 13.8, Hct 41.3, MCV 91.2, MCH 30.5, MCHC 33.4, RDW Std Deviation 50.3 H, RDW Coeff of Bobo 15.3 H, Plt Count 100 L, MPV 10.6, Immature Gran % (Auto) 1.700 H, Neut % (Auto) 91.2 H, Lymph % (Auto) 3.1 L, [place] % (Auto) 3.7, Eos % (Auto) 0.1, Baso % (Auto) 0.2, Absolute Neuts (auto) 17.3 H, Absolute Lymphs (auto) 0.59 L, Nucleated RBC % 0.1, Anisocytosis 1+ 06/15/21 04:25: Sodium 139, Potassium 4.5, Chloride 96 L, Carbon Dioxide 39.0 H, Anion Gap 4 L, BUN 55 H, Creatinine 1.35 H, Estim Creat Clear Calc 51.37, Est GFR (MDRD) Af Amer 68, Est GFR (MDRD) Non-Af 56 L, BUN/Creatinine Ratio 40.7 H, Glucose 280 H, Calcium 8.3 L 06/15/21 05:33: POC Glucose 246 H 06/15/21 09:43: POC Glucose 133 H Micro: Microbiology 06/09/21 19:33 Sputum, Induced/Lukens Gram Stain - Final 06/09/21 19:33 Sputum, Induced/Lukens Respiratory Culture - Final Culture exhibits no growth. 06/10/21 06:49 Mucosa - Nasopharyngeal Respiratory Panel (PCR) - Final ABG Data ABG results: ABG 06/15/21 07:46 Specimen Type ART Sample Site L Radial pH 7.44 Bicarbonate Actual 39.4 H Total CO2 41 Base Excess 15 H O2 Saturation 93 L O2 % 40 ABG pCO2 57.9 H ABG pO2 66 L Moiz Test Positive O2 Delivery Device Adult Vent Vent Mode CPAP/PS POC PEEP 5 POC Pressure Suppt 5 Radiography Diagnostic Testing: Radiology Impression Chest X-Ray 06/15/21 06:00 IMPRESSION: Consolidative infiltrates or atelectasis in the lung bases which are more prominent on the prior study. Electronically Signed: Bebeto Dial MD at 6:49 EDT , Physical Exam Narrative Physical exam: General:Alert, in mild respiratory distress, with increase work of breathing and use of accessory muscles of breathing, on oxygen HEENT: Atraumatic Oral: Moist Mucosa Neck: Supple Lungs: Diminished to auscultation, Cardiovascular: HS I+II, regular, no murmurs Abdomen: Bowel Sounds Present, Soft, Non Tender, abdomen feels a lot softer Extremities: No edema Assessment & Plan Assessment/Plan (1) Acute respiratory failure with hypoxia and hypercapnia: (2) Pneumonia: QUALIFIERS: Laterality: right Lung location: lower lobe of lung Pneumonia type: due to unspecified organism Qualified Code(s): J18.9 - Pneumonia, unspecified organism (3) COPD exacerbation: PLAN: 1. Acute combined respiratory failure secondary to Acute COPD exacerbation/pneumonia Status post extubation today, 06/15/21 Continue breathing treatments and treatment for #2 and #3 Continue to monitor oxygenation Internal Affairs Commander following 2. Pneumonia, MRSA negative, continue on IV Zosyn(day 6) Chest x-ray this morning shows consolidative infiltrates or atelectasis in the lung bases 3. Acute COPD exacerbation, continue on IV Solu-Medrol 4. Elevated troponin secondary to acute type II non-STEMI, Will continue to monitor 5. Type II DM, HbA1c 6.5, blood sugars are better controlled Continue on increased Lantus, continue on ISS with blood glucose checks. 6. DVT prophylaxis - Lovenox SC 7. GI PPx- PPI Charges/Coding Visit Charges Inpatient E&M: 30832 Subs Hosp L2
[2021-06-15] MEDS: QUEtiapine 100 MG Tablet 150 MG PO ×2 (15:31→21:42)
[2021-06-15 16:25] LABS: Bedside Glucose 110 mg/dL (74-106)
[2021-06-16] VITALS (35 sets, daily range): BP systolic 87–149; BP diastolic 46–98; PULSE 43–91; RESP 15–26; TEMP 36.6–37.2; O2SAT 87–98
--- NOTE | 2021-06-16 00:17 | RAD_ITS ---
INDICATION: sob EXAMINATION/TECHNIQUE: X-RAY - XR Chest 1 View COMPARISON: 06/07/2021 FINDINGS: LINES/DEVICES: None. LUNGS: Bibasilar hazy and patchy opacities, right greater than left, similar compared to the prior. MEDIASTINUM AND CARDIOVASCULAR STRUCTURES: Cardiac silhouette not enlarged. Central airways and mediastinal contour are unremarkable. BONES AND SOFT TISSUES: Cervical spine fusion hardware, similar compared to the prior. RAD/Chest 1 View (Portable) IMPRESSION: Bibasilar opacities, similar compared to the prior. Electronically Signed: Syd Ballard MD at 1:30 EDT ,
[2021-06-16 00:51] LABS: Allen Test Positive; Base Excess 12 mmol/L (-2 to +2); Bicarbonate 37.2 mmol/L (22-26); Blood Gas Specimen Type ART; FI02 49; PO2 70 mmHG (75-100); SITE L Radial; SO2 93 % (95-99); Total Carbon Dioxide 39 mmol/L; pCO2 61.3 mmHg (35-45); pH 7.39 (7.35-7.45)
--- NOTE | 2021-06-16 00:54 | PCM.PN.BLA ---
Progress Note Patient nurse reported that patient is restless. And has Rales. Reportedly Lasix was held earlier on in the day. 40 mg IV push ordered. Patient's maxed out on Precedex. Patient is already on Seroquel. IV Ativan and IV morphine ordered. Patient was seen and examined at the bedside. Patient with rales. Chest x-ray independently interpreted myself showed worsening infiltrates. Patient was previously on vancomycin that was discontinued. MRSA nasal screen was negative. Patient currently on Zosyn. Will escalate to meropenem. ABG ordered. Change Airvo to BiPAP. Check rapid COVID screen.
[2021-06-16] MEDS: Furosemide 40 MG/4 ML Vial IV ×2 (00:56→07:38)
[2021-06-16 00:58] LABS: BNP,B-Type NATRIURETIC PEPTIDE 138.5 pg/mL (0-100)
[2021-06-16] MEDS: Morphine 2 MG/ML Syringe IV (01:02)
[2021-06-16 01:11] LABS: Bedside Glucose 75 mg/dL (74-106)
[2021-06-16] MEDS: Ipratropium/Albuterol Sulfate 3 ML AMPUL.NEB INHALATION ×5 (01:30→18:51)
[2021-06-16] MEDS: Dexmedetomidine 1,000 mcg in 0.9% NS 240 mL 32.6 MCG CONT INF (03:11)
[2021-06-16 04:25] LABS: Absolute Lymphocyte Count 0.58 X10^3/uL (0.83-4.51); Absolute Neutrophil Count 16.7 X10^3/uL (2.0-7.7); Basophil# 0.02 X10^3/uL; Basophil% 0.1 % (0-1); Eosinophil# 0.04 X10^3/uL; Eosinophils% 0.2 % (0-5); Hematocrit 44.2 % (40-54); Hemoglobin 14.6 g/dL (13.0-16.5); Lymphocyte # 0.58 X10^3/ul (0.83-4.51); Lymphocyte % 3.2 % (19-41); Mean Corpuscular Hgb 30.5 pg (27.0-32.0); Mean Corpuscular Volume 92.3 fL (80-94); Mean Platelet Vol. 9.9 fl (6.2-12.0); Monocyte# 0.59 X10^3/uL; Monocyte% 3.3 % (0-10); NRBC Flagged by Analyzer 0 % (0-5); Neutrophil # 16.69 X10^3/uL (2.7-7.7); Neutrophil % 92.3 % (47-70); POSITIVE DIFFERENTIAL YES; Platelet Count 214 K/mm3 (150-450); RBC Distribution Width CV 15.1 % (11.6-14.6); RBC Distribution Width SD 50.6 fl (35.1-43.9); Red Blood Count 4.79 M/mm3 (4.6-6.2); White Blood Count 18.1 K/mm3 (4.4-11.0)
[2021-06-16 04:26] LABS: Differential Indicated SCAN CRITERIA MET
[2021-06-16 04:47] LABS: ALB/GLOB Ratio 0.8 RATIO (0.9-2.4); AST(SGOT) 28 U/L (15-37); Alanine Aminotransfer ALT/SGPT 56 U/L (16-61); Albumin, Serum 2.7 g/dL (3.2-5.0); Alkaline Phosphatase 50 U/L (45-117); Anion Gap 4 (5-15); BUN 53 mg/dL (7-18); Calcium,Total 8.7 mg/dL (8.5-10.1); Chloride 100 mmol/L (98-107); Creatinine, Serum 1.04 mg/dL (0.70-1.30); EST Glomerular Filtration Rate 76 mL/min (>60); Est Glom Filt Rate - Afr Amer 92 mL/min (>60); Estimated Creatinine Clearance 66.68 ml/min; Globulin 3.5 g/dL (2.2-4.2); Glucose 96 mg/dL (74-106); Potassium 4.3 mmol/L (3.5-5.1); Protein, Total 6.2 g/dL (6.4-8.2); Sodium Level 143 mmol/L (136-145)
[2021-06-16 05:10] LABS: Differential Comment SCANNED
[2021-06-16] MEDS: CHLORHEXIDINE GLUC 2% CLOTH 1 EACH TOWELETTE TOPICAL (06:10)
[2021-06-16 06:35] LABS: Bedside Glucose 112 mg/dL (74-106)
--- NOTE | 2021-06-16 06:47 | PN.CC_ITS ---
Assessment & Plan Assessment/Plan (1) Acute respiratory failure with hypoxia and hypercapnia: PLAN: RECOMMENDATIONS: 1. Continue Airvo for now. Wean FiO2/PEEP for saturations greater than 90%. 2. Bedside swallow evaluation. Off insulin with decreased p.o. intake 3. Completed total of 7 days of antibiotics 4. Continue scheduled bronchodilators. Likely okay to transition to pred nisone if able to tolerate p.o. 5. Continue appropriate DVT and GI prophylaxis. Discontinue aggressive bowel regimen 6. Attempt weaning of Precedex. 7. Continue Seroquel and diuresis IMPRESSIONS: 1. Respiratory failure with hypoxemia and hypercapnia, of unclear chronicity The patient has an apparent history of COPD along with chronic tobacco dependency. However, we do not have any records of any prior pulmonary function studies. In addition, it is still unclear if the patient truly utilizes supplemental oxygen at his baseline. The patient did have bilateral interstitial infiltrates noted on chest imaging. Therefore, it is certainly reasonable to continue antimicrobials to cover for an underlying pulmonary infectious process. Echocardiogram did not reveal any significant LV dysfunction. CTA chest was negative for pulmonary embolism. We will plan to continue scheduled bronchodilators and IV steroids. FiO2 and PEEP will be weaned to maintain oxygen saturations at or above 90%. Patient successfully extubated yesterday, but continues to be relatively hypoxic. Will attempt to continue to diurese as patient is significantly positive over the course of the hospitalization. Patient can complete a total of 7 days of antibiotics. 2. Troponin elevation Likely secondary to demand ischemia in the setting of #1. Surface echocardiogram was unremarkable. 3. Chronic tobacco dependency/insulin resistance The exact pack-year smoking history is unclear. Nevertheless, nicotine replacement therapy can be utilized while the patient is admitted to the hospital. Okay to continue tube feeds today from my perspective. We will add sliding scale insulin 4. Delirium/metabolic encephalopathy Unclear how much of patient's impulsivity is baseline versus delirium. Benzodiazepines will be avoided. Patient is on Seroquel. Continue to wean Precedex as tolerated. Subjective Subjective Patient did okay overnight. Patient did have agitation and picking at IV sites, so Precedex was initiated. Patient has since been titrated up to maximum dosing. Patient has had some bradycardia, but no hypotension. Patient continues to be intermittently agitated. Nursing did report significant diarrhea overnight. Objective Data Objective Data Vital Signs: Vital Signs Temp Pulse Resp BP Pulse Ox 36.6 C 52 L 18 136/70 H 95 06/16/21 06:00 06/16/21 06:39 06/16/21 06:39 06/16/21 06:00 06/16/21 06:39 Oxygen Flow Rate (L/min) 60 Oxygen Delivery Method Airvo Weight: 81.6 kg Body Mass Index (BMI) 28.0 Intake & Output: Intake and Output for Last 24 Hours 06/14/21 06/15/21 06/16/21 23:59 23:59 23:59 Intake Total 4314.82 / 4994.76 1298.89 / 1306.52 367.25 / 367.25 Output Total 3350 / 3750 2050 / 2300 2150 / 2150 Balance 964.82 / 1244.76 -751.11 / -993.48 -1782.75 / -1782.75 Lab / Micro Data Result Diagrams: 06/16/21 04:19 06/16/21 04:19 Labs: Laboratory Results - last 24 hr 06/15/21 09:43: POC Glucose 133 H 06/15/21 16:22: POC Glucose 110 H 06/16/21 00:30: B-Natriuretic Peptide 138.5 H 06/16/21 01:04: POC Glucose 75 06/16/21 04:19: WBC 18.1 H, RBC 4.79, Hgb 14.6, Hct 44.2, MCV 92.3, MCH 30.5, MCHC 33.0, RDW Std Deviation 50.6 H, RDW Coeff of Bobo 15.1 H, Plt Count 214, MPV 9.9, Immature Gran % (Auto) 0.900, Neut % (Auto) 92.3 H, Lymph % (Auto) 3.2 L, [place] % (Auto) 3.3, Eos % (Auto) 0.2, Baso % (Auto) 0.1, Absolute Neuts (auto) 16.7 H, Absolute Lymphs (auto) 0.58 L, Nucleated RBC % 0, Differential Comment SCANNED 06/16/21 04:19: Sodium 143, Potassium 4.3, Chloride 100, Carbon Dioxide 39.0 H, Anion Gap 4 L, BUN 53 H, Creatinine 1.04, Estim Creat Clear Calc 66.68, Est GFR (MDRD) Af Amer 92, Est GFR (MDRD) Non-Af 76, BUN/Creatinine Ratio 51.0 H, Glucose 96, Calcium 8.7, Total Bilirubin 1.10 H, AST 28, ALT 56, Alkaline Phosphatase 50, Total Protein 6.2 L, Albumin 2.7 L, Globulin 3.5, Albumin/Globulin Ratio 0.8 L 06/16/21 06:14: POC Glucose 112 H Micro: Microbiology 06/16/21 01:05 Nasal Secretion SARS-CoV-2 Antigen (Rapid) - Final 06/09/21 19:33 Sputum, Induced/Lukens Gram Stain - Final 06/09/21 19:33 Sputum, Induced/Lukens Respiratory Culture - Final Culture exhibits no growth. 06/10/21 06:49 Mucosa - Nasopharyngeal Respiratory Panel (PCR) - Final ABG Data ABG results: ABG 06/15/21 06/16/21 07:46 00:45 Specimen Type ART ART Sample Site L Radial L Radial pH 7.44 7.39 Bicarbonate Actual 39.4 H 37.2 H Total CO2 41 39 Base Excess 15 H 12 H O2 Saturation 93 L 93 L O2 % 40 49 ABG pCO2 57.9 H 61.3 H ABG pO2 66 L 70 L Moiz Test Positive Positive O2 Delivery Device Adult Vent Vent Mode CPAP/PS POC PEEP 5 POC Pressure Suppt 5 Clinical Comments AirVo 60 l/m Radiography Diagnostic Testing: Radiology Impression Chest X-Ray 06/15/21 06:00 IMPRESSION: Consolidative infiltrates or atelectasis in the lung bases which are more prominent on the prior study. Electronically Signed: Bebeto Dial MD at 6:49 EDT , Chest X-Ray 06/16/21 00:17 IMPRESSION: Bibasilar opacities, similar compared to the prior. Electronically Signed: Syd Ballard MD at 1:30 EDT , Physical Exam Const no apparent distress Constitutional Narrative: RASS -1. On Airvo Orientation / Consciousness: confused HEENT normocephalic and head/scalp atraumatic Eyes PERRL and EOMs intact bilaterally Neck supple General: trachea midline Chest Chest Narrative: Increased AP diameter Chest: symmetrical chest wall rise; Negative for crepitus Resp Auscultation: diminished lung sounds; Negative for rales, rhonchi or wheezes Cardio S1 normal heart sound, S2 normal heart sound, no murmurs, no rub and no gallops GI soft to palpation and non-tender GI Narrative: Much less distended today Auscultation: normoactive bowel sounds Palpation: Negative for guarding or rigid Extremity General Extremity: edema bilateral (1+); Negative for clubbing or cyanosis Skin no rashes or lesions noted Neuro Sensorium / Orientation: sedated on vent Charges/Coding Visit Charges Inpatient E&M: 06351 Subs Hosp L3
--- NOTE | 2021-06-16 07:18 | PCM.PN.HOSP ---
Subjective Subjective Follow-up on Acute respiratory failure/COPD exacerbation/pneumonia: Patient was seen and examined. He remained on Airvo the whole day yesterday. Overnight, patient's was agitated requiring start of Precedex drip. He is less confused this morning. He is also had multiple bowel movements. Stool softeners on hold Objective Data Objective Data Vital Signs: Vital Signs Temp Pulse Resp BP Pulse Ox 97.8 F 52 L 18 136/70 H 95 06/16/21 06:00 06/16/21 06:39 06/16/21 06:39 06/16/21 06:00 06/16/21 06:39 Oxygen Flow Rate (L/min) 60 Oxygen Delivery Method Airvo Weight: 81.6 kg Body Mass Index (BMI) 28.0 Intake & Output: Intake and Output for Last 24 Hours 06/14/21 06/15/21 06/16/21 23:59 23:59 23:59 Intake Total 4314.82 / 4994.76 1298.89 / 1306.52 367.25 / 367.25 Output Total 3350 / 3750 2050 / 2300 2150 / 2150 Balance 964.82 / 1244.76 -751.11 / -993.48 -1782.75 / -1782.75 Lab / Micro Data Result Diagrams: 06/16/21 04:19 06/16/21 04:19 Labs: Laboratory Results - last 24 hr 06/15/21 09:43: POC Glucose 133 H 06/15/21 16:22: POC Glucose 110 H 06/16/21 00:30: B-Natriuretic Peptide 138.5 H 06/16/21 01:04: POC Glucose 75 06/16/21 04:19: WBC 18.1 H, RBC 4.79, Hgb 14.6, Hct 44.2, MCV 92.3, MCH 30.5, MCHC 33.0, RDW Std Deviation 50.6 H, RDW Coeff of Bobo 15.1 H, Plt Count 214, MPV 9.9, Immature Gran % (Auto) 0.900, Neut % (Auto) 92.3 H, Lymph % (Auto) 3.2 L, [place] % (Auto) 3.3, Eos % (Auto) 0.2, Baso % (Auto) 0.1, Absolute Neuts (auto) 16.7 H, Absolute Lymphs (auto) 0.58 L, Nucleated RBC % 0, Differential Comment SCANNED 06/16/21 04:19: Sodium 143, Potassium 4.3, Chloride 100, Carbon Dioxide 39.0 H, Anion Gap 4 L, BUN 53 H, Creatinine 1.04, Estim Creat Clear Calc 66.68, Est GFR (MDRD) Af Amer 92, Est GFR (MDRD) Non-Af 76, BUN/Creatinine Ratio 51.0 H, Glucose 96, Calcium 8.7, Total Bilirubin 1.10 H, AST 28, ALT 56, Alkaline Phosphatase 50, Total Protein 6.2 L, Albumin 2.7 L, Globulin 3.5, Albumin/Globulin Ratio 0.8 L 06/16/21 06:14: POC Glucose 112 H Micro: Microbiology 06/16/21 01:05 Nasal Secretion SARS-CoV-2 Antigen (Rapid) - Final 06/09/21 19:33 Sputum, Induced/Lukens Gram Stain - Final 06/09/21 19:33 Sputum, Induced/Lukens Respiratory Culture - Final Culture exhibits no growth. 06/10/21 06:49 Mucosa - Nasopharyngeal Respiratory Panel (PCR) - Final ABG Data ABG results: ABG 06/15/21 06/16/21 07:46 00:45 Specimen Type ART ART Sample Site L Radial L Radial pH 7.44 7.39 Bicarbonate Actual 39.4 H 37.2 H Total CO2 41 39 Base Excess 15 H 12 H O2 Saturation 93 L 93 L O2 % 40 49 ABG pCO2 57.9 H 61.3 H ABG pO2 66 L 70 L Moiz Test Positive Positive O2 Delivery Device Adult Vent Vent Mode CPAP/PS POC PEEP 5 POC Pressure Suppt 5 Clinical Comments AirVo 60 l/m Radiography Diagnostic Testing: Radiology Impression Chest X-Ray 06/16/21 00:17 IMPRESSION: Bibasilar opacities, similar compared to the prior. Electronically Signed: Syd Ballard MD at 1:30 EDT , Physical Exam Narrative Physical exam: General:Alert, in mild respiratory distress, with increase work of breathing and use of accessory muscles of breathing, on Airvo HEENT: Atraumatic Oral: Moist Mucosa Neck: Supple Lungs: Barrel-shaped chest, diminished to auscultation, Cardiovascular: HS I+II, regular, no murmurs Abdomen: Bowel Sounds Present, Soft, Non Tender, abdomen feels a lot softer Extremities: No edema Assessment & Plan Assessment/Plan (1) Acute respiratory failure with hypoxia and hypercapnia: (2) Pneumonia: QUALIFIERS: Laterality: right Lung location: lower lobe of lung Pneumonia type: due to unspecified organism Qualified Code(s): J18.9 - Pneumonia, unspecified organism (3) COPD exacerbation: PLAN: 1. Acute combined respiratory failure secondary to Acute COPD exacerbation/pneumonia Status post extubation today, 06/15/21, currently on Airvo Continue breathing treatments and treatment for #2 and #3 Continue to monitor oxygenation. Supermarket Manager following 2. Pneumonia, MRSA negative, completed 7 days of antibiotics Chest x-ray 06/15/21 showed consolidative infiltrates or atelectasis in the lung bases 3. Acute COPD exacerbation, continue on IV Solu-Medrol Q12 4. CELSO, likely prerenal, Cr improved to 1.04 from 1.35 Off Vancomycin; Lasix held yesterday; resumed today Will trend especially whilst NPO 5. Dysphagia, likely related to recent intubation Speech therapy consulted, barium swallow eval recommended 6. Elevated troponin secondary to acute type II non-STEMI, Will continue to monitor 7. Type II DM, HbA1c 6.5, blood sugars are better controlled Off Lantus secondary to NPO status, continue on ISS with blood glucose checks. 8. DVT prophylaxis - Lovenox SC 9. GI PPx- PPI Charges/Coding Visit Charges Inpatient E&M: 34335 Subs Hosp L2
[2021-06-16] MEDS: 0.9% Saline Lock 10 ML Syringe IV ×4 (07:38→17:07)
[2021-06-16] MEDS: QUEtiapine 100 MG Tablet 150 MG PO ×2 (09:40→21:55)
[2021-06-16] MEDS: Enoxaparin 40 MG/0.4 ML Syringe SC (09:42)
--- NOTE | 2021-06-16 10:10 | CASEMGMT ---
SW met with patient's and patient. Patient was a little restless so SW spoke to patient's mainly. SW discussed d/c plan of SNF for rehab. Patient's said she was thinking he might need this. However, she feels patient is going to fight her on it. SW provided patient's with a list of SNF providers including quality and resource use data and consistent with the patient?s preferred geographic region, medical needs, and insurance network. SW explained that she can review the list and SW would prefer 3 facilities they would prefer. SW would then check on the bed situation with the facilities. Patient's said she was hoping for TCU as patient will be more likely to go there than a community senior care. SW will check with Shanel to see if TCU is an option. SW encouraged her to review the list in case TCU does not work out. XAVIER called Shanel in TCU and ask her to please review patient's chart. Ana Parsons SPARE PERSON FARZAD
[2021-06-16 11:25] LABS: Bedside Glucose 131 mg/dL (74-106)
[2021-06-16] MEDS: Dexmedetomidine 1,000 mcg in 0.9% NS 240 mL 17.4 MCG CONT INF (12:22)
--- NOTE | 2021-06-16 13:38 | ST.MBS ---
Modified Barium Swallow - Patient Information Study Date: 06/16/21 Study Time: 13:00 Direct Billable Minutes: 90 Total Minutes procedure & reportin Diagnosis: Pneumonia (J18.9) Referring Physician: Hang Nunes Reason for Referral: Objectively assess swallow function, risk for aspiration, and determine recommendations for least restrictive diet textures and compensatory strategies to improve safety of swallow. Medical History: Danie Girard is a 65 M who presented to [facility] on 06/09/2021 from an outside hospital with acute hypoxic and hypercapnic respiratory failure. He has a history of COPD. The patient was intubated on arrival and could not provide any history. He arrived to the outside hospital short of breath. He was 60% on room air at the outside hospital and required intubation. He had to be transferred to [facility] secondary to the outside hospital not having critical care. Chest x-ray did demonstrate a possible right lower lobe pneumonia. He received nutrition via NG tube while intubated. He is being managed for respiratory failure, COPD exacerbation, and pneumonia amongst other comorbidities. The patient was extubated 06/15/2021. He failed RN dysphagia screen due to anterior loss of sips of water. He was referred for speech consult to assess concern for dysphagia and aspiration. BSE completed 06/16/2021 and pt was recommended NPO with sips and chips with plans for MBS study once pt weaned to nasal cannula from Airvo. The patient had worsening infiltrate on chest x-ray per Dr. Hicks's progress report from 06/16/2021. PERFORMANCE SPECIALIST concerned for silent aspiration risk s/p extubation, hx of COPD, continued infiltrate per chest X-ray. Current Diet Ordered: NPO with sips and chips Dentition: Missing Teeth Mental Status: Impaired - Repetition to follow commands throughout the study Respiratory Status: Oxygenating on 4L/M nasal cannula - 10L/M via nasal cannula - Penetration-Aspiration Scale Penetration-Aspiration Scale: OBJECTIVE ASSESSMENT OF SWALLOW FUNCTION (QUANTITATIVE ? PER TRIAL): PENETRATION / ASPIRATION SCALE (VAUGHAN): 1 = does not enter airway 2 = enters airway/above vocal folds/ejected 3 = enters airway/above vocal folds/not ejected 4 = enters airway/contacts vocal folds/ejected 5 = enters airway/contacts vocal folds/not ejected 6 = enters airway/below vocal folds/ejected 7 = enters airway/below vocal folds/not ejected despite effort 8 = enters airway/below vocal folds/no effort VIDEOFLOROSCOPIC SCALE SCORE (VAUGHAN): Grade I = aspiration of material that has penetrated into the laryngeal vestibule, intact cough reflex Grade II = aspiration < 10 % of the bolus, intact cough reflex Grade III = aspiration of < 10 % of the bolus, reduced cough reflex or aspiration of > 10 % of the bolus, intact cough reflex Grade IV = aspiration of > 10 % of the bolus, reduced cough reflex - Penetration-Aspiration Scale Score Thin Liquid via teaspoon Result: 3= enters airways/above vocal folds/not ejected Thin Liquid via teaspoon Trial 2 Result: 1= does not enter airway Thin Liquid via small single sip from cup Result: 3= enters airways/above vocal folds/not ejected Comment: When self feeding, pt utilized partial chin tuck. Thin Liquid via small single sip from cup Trial 2 Result: 1= does not enter airway [place] Thick Liquid via small single sip from cup Result: 1= does not enter airway Honey Thick Liquid via small single sip from cup Result: 1= does not enter airway Pudding via teaspoon with esophageal screen Result: 1= does not enter airway 1/2 Litzy Doone Cookie Result: 1= does not enter airway Thin Liquid via single sip from straw Result: 2= enter airway/above vocal folds/ejected Thin Liquid via sequential sips from straw Result: 3= enters airways/above vocal folds/not ejected Thin Liquid via small single sip from cup Trial 3 Result: 2= enter airway/above vocal folds/ejected Thin Liquid via small single sip from cup Effortful swallow Result: 1= does not enter airway [place] Thick Liquid via small single sip from cup Trial 2 Result: 1= does not enter airway - Oral Phase Labial Seal: Escape beyond interlabial space; no extension beyond lisa border Tongue Control During Bolus Hold: Posterior escape of less than half of bolus Bolus Preparation/Mastication: Disorganized chewing/mashing with solid pieces of bolus unchewed Bolus Transport/Lingual Motion: Repetitive/disorganized tongue motion Oral Residue: Majority of bolus remaining - Pharyngeal Phase Initiation of Pharyngeal Swallow: Bolus head in pyriforms Soft Palate Elevation: Trace column of contrast/air between soft palate and pharyngeal wall Anterior Hyoid Excursion: Partial anterior movement Epiglottic Movement: Partial inversion Laryngeal Vestibule Closure at Height of Swallow: Incomplete; narrow column of air/contrast in laryngeal vestibule Pharyngeal Stripping Wave: Present - complete Pharyngoesophageal Segment Opening: Parital distension and partial duration; parital obstruction of flow Tongue Base Retraction: Wide column of contrast between tongue base & post. pharyngeal wall Pharyngeal Residue: Collection of residue within or on pharyngeal structures - Esophageal Phase Esophageal Clearance: Esophageal retention - Treatment Strategies Effects of treatment strategies attemped:: Effortful swallow = Effective. Decreased rate = Effective. - Diagnosis/Impression Diagnosis: Mild-moderate oropharyngeal phase dysphagia (R13.12) Impression: The oral phase is marked by decreased mastication abilities. The patient had prolonged and disorganized mastication. He presented with piecemeal deglutition to clear cookie bolus - majority of cookie remained in oral cavity after the initial swallow. He has decreased bolus control with premature posterior loss of thin liquid boluses to the pyriforms prior to swallow onset. The pharyngeal phase is marked by decreased airway closure and mild-moderate pharyngeal residue after the swallow. The patient has decreased anterior hyoid excursion and laryngeal elevation with resulting decreased epiglottic inversion. He also had decreased TB retraction and UES opening with resulting residue in the vallecula and pyriforms, which worsened with thicker viscosities. The patient demonstrated laryngeal penetration above the vocal folds in 5/8 thin liquid trials. The penetrated contrast did not always reliably eject from the larynx. The patient is at increased risk for post prandial aspiration of contrast remaining in the laryngeal vestibule after the swallow; however, no aspiration observed during the study. He presented with esophageal retention of portion of pudding trial in upper esophagus. - Recommendations Diet: [place]-thick Liquids - Minced and Moist (IDDSI Level 5) Textures Compensatory Strategies: Small Bites, Small Sips, Slow Rate, Alternate bites/solids and sips/liquids, Sitting upright, Remain sitting upright for 30 minutes after PO intake Supervision: 1:1 Close Supervision Recommend Repeat Modified Barium Swallow: TBD Need for Skilled Speech Therapy Services: Yes Comment: Will recommend the patient for continued dysphagia therapy to address deficits in oropharyngeal swallow function. Would consider the patient for oropharyngeal strengthening to improve lingual coordination, hyolaryngeal elevation/excursion, tongue base retraction, and duration of UES opening (e.g. Dinora, Katelin, effortful swallow, tongue retraction, lingual coordination exercises). The patient would benefit from thorough education regarding diet recommendations and recommended compensatory strategies. Pt ok to trial thin liquids with PERFORMANCE SPECIALIST, one sip at a time, considering use of effortful swallows. If tolerance with trials of thin liquids and stable respiratory status, pt ok to upgrade to thin liquids at bedside if deemed clinically appropriate by PERFORMANCE SPECIALIST. Would consider the patient for implementation of FFWP at next level of care if continuing with thickened liquids. Education Completed: 1. Described result of evaluation., 7. Pt requires further education on strategies & risks. - Status Active ST Patient: Active - Contact Information [facility] Speech Therapy:: Vicki Navas M.A. [facility] SPECIAL[facility] Speech-Language Pathologist [facility] [address] [place] [address] [email or web address] [phone] 06/16/21 14:59
--- NOTE | 2021-06-16 14:28 | CASEMGMT ---
XAVIER received a voice mail from Shanel and at this time it looks like TCU could take patient. Patient is still in ICU so a pre-cert will not be initiated. SW went to patient's room to talk with his to let her know about TCU, however she was not present. Plan: TCU when medically ready and insurance approves. Ana Parsons MSW FARZAD
[2021-06-16 16:55] LABS: Bedside Glucose 303 mg/dL (74-106)
[2021-06-17] VITALS (30 sets, daily range): BP systolic 90–146; BP diastolic 53–110; PULSE 54–119; RESP 16–31; TEMP 36.6–37.5; O2SAT 89–99
[2021-06-17] MEDS: QUEtiapine 25 MG Tablet 50 MG PO (00:09)
[2021-06-17] MEDS: LORazepam 2 MG/ML Syringe IV (00:09)
[2021-06-17 02:36] LABS: Bedside Glucose 148 mg/dL (74-106)
[2021-06-17 04:32] LABS: Absolute Lymphocyte Count 0.48 X10^3/uL (0.83-4.51); Absolute Neutrophil Count 14.7 X10^3/uL (2.0-7.7); Basophil# 0.01 X10^3/uL; Basophil% 0.1 % (0-1); Eosinophil# 0.03 X10^3/uL; Eosinophils% 0.2 % (0-5); Hematocrit 42.9 % (40-54); Hemoglobin 14.2 g/dL (13.0-16.5); Lymphocyte # 0.48 X10^3/ul (0.83-4.51); Mean Corp Hgb Conc 33.1 g/dL (32-36); Mean Corpuscular Hgb 30.2 pg (27.0-32.0); Mean Corpuscular Volume 91.3 fL (80-94); Mean Platelet Vol. 9.8 fl (6.2-12.0); Monocyte# 0.52 X10^3/uL; Monocyte% 3.3 % (0-10); NRBC Flagged by Analyzer 0 % (0-5); Neutrophil # 14.65 X10^3/uL (2.7-7.7); Neutrophil % 92.8 % (47-70); POSITIVE DIFFERENTIAL YES; Platelet Count 216 K/mm3 (150-450); RBC Distribution Width CV 14.6 % (11.6-14.6); RBC Distribution Width SD 48.3 fl (35.1-43.9); White Blood Count 15.8 K/mm3 (4.4-11.0)
[2021-06-17 04:36] LABS: Differential Indicated SCAN CRITERIA MET
[2021-06-17 04:49] LABS: ALB/GLOB Ratio 0.7 RATIO (0.9-2.4); AST(SGOT) 25 U/L (15-37); Alanine Aminotransfer ALT/SGPT 58 U/L (16-61); Albumin, Serum 2.5 g/dL (3.2-5.0); Alkaline Phosphatase 53 U/L (45-117); Anion Gap 1 (5-15); BUN 54 mg/dL (7-18); BUN/Creat Ratio 55.4 RATIO (10-20); Calcium,Total 8.6 mg/dL (8.5-10.1); Chloride 99 mmol/L (98-107); Creatinine, Serum 0.97 mg/dL (0.70-1.30); EST Glomerular Filtration Rate 82 mL/min (>60); Est Glom Filt Rate - Afr Amer 99 mL/min (>60); Estimated Creatinine Clearance 71.49 ml/min; Globulin 3.4 g/dL (2.2-4.2); Glucose 240 mg/dL (74-106); Protein, Total 5.9 g/dL (6.4-8.2); Sodium Level 139 mmol/L (136-145)
[2021-06-17 05:19] LABS: Differential Comment SCANNED
--- NOTE | 2021-06-17 06:55 | PN.CC_ITS ---
Assessment & Plan Assessment/Plan (1) Acute respiratory failure with hypoxia and hypercapnia: PLAN: RECOMMENDATIONS: 1. Continue Airvo for now. Wean FiO2/PEEP for saturations greater than 90%. 2. Continue modified diet per speech therapy 3. Completed total of 7 days of antibiotics 4. Continue scheduled bronchodilators. Transition to prednisone therapy 5. Continue appropriate DVT and GI prophylaxis. Discontinue aggressive bowel regimen 6. Attempt weaning of Precedex. 7. Continue Seroquel and diuresis 8. Possible transfer from the intensive care unit once mental status improves or with sitter IMPRESSIONS: 1. Respiratory failure with hypoxemia and hypercapnia, of unclear chronicity The patient has an apparent history of COPD along with chronic tobacco dependency. However, we do not have any records of any prior pulmonary function studies. In addition, it is still unclear if the patient truly utilizes supplemental oxygen at his baseline. The patient did have bilateral interstitial infiltrates noted on chest imaging. Therefore, it is certainly reasonable to continue antimicrobials to cover for an underlying pulmonary infectious process. Echocardiogram did not reveal any significant LV dysfunct ion. CTA chest was negative for pulmonary embolism. We will plan to continue scheduled bronchodilators, but transition to p.o. steroids. FiO2 and PEEP will be weaned to maintain oxygen saturations at or above 90%. Patient successfully extubated, but continues to be relatively hypoxic. Will attempt to continue to diurese as patient is significantly positive over the course of the hospitalization. Patient can complete a total of 7 days of antibiotics. 2. Troponin elevation Likely secondary to demand ischemia in the setting of #1. Surface echocardiogram was unremarkable. 3. Chronic tobacco dependency/insulin resistance The exact pack-year smoking history is unclear. Nevertheless, nicotine replacement therapy can be utilized while the patient is admitted to the hospital. Okay to continue tube feeds today from my perspective. Off insulin therapy secondary to decreased p.o. intake 4. Delirium/metabolic encephalopathy Unclear how much of patient's impulsivity is baseline versus delirium. Benzodiazepines will be avoided. Patient is on Seroquel. Continue to wean Precedex as tolerated. Subjective Subjective The patient did okay overnight from a hemodynamic standpoint. Patient did req uire increased FiO2 while sleeping, but the majority of the issue resolved around delirium at [place]. Patient is intermittently appropriate and has no complaints this morning. No epistaxis has been noted. Objective Data Objective Data Vital Signs: Vital Signs Temp Pulse Resp BP Pulse Ox 36.8 C 57 L 18 110/60 99 06/17/21 04:00 06/17/21 06:00 06/17/21 06:00 06/17/21 06:00 06/17/21 06:00 Oxygen Flow Rate (L/min) 50 Oxygen Delivery Method Airvo Weight: 81.6 kg Body Mass Index (BMI) 28.0 Intake & Output: Intake and Output for Last 24 Hours 06/15/21 06/16/21 06/17/21 23:59 23:59 23:59 Intake Total 1298.89 / 1306.52 1422.88 / 1422.88 258.85 / 258.85 Output Total 2050 / 2300 3800 / 4150 550 / 550 Balance -751.11 / -993.48 -2377.12 / -2727.12 -291.15 / -291.15 Lab / Micro Data Result Diagrams: 06/17/21 04:25 06/17/21 04:25 Labs: Laboratory Results - last 24 hr 06/16/21 11:23: POC Glucose 131 H 06/16/21 16:53: POC Glucose 303 H 06/16/21 21:59: POC Glucose 148 H 06/17/21 04:25: WBC 15.8 H, RBC 4.70, Hgb 14.2, Hct 42.9, MCV 91.3, MCH 30.2, MCHC 33.1, RDW Std Deviation 48.3 H, RDW Coeff of Bobo 14.6, Plt Count 216, MPV 9.8, Immature Gran % (Auto) 0.600, Neut % (Auto) 92.8 H, Lymph % (Auto) 3.0 L, [place] % (Auto) 3.3, Eos % (Auto) 0.2, Baso % (Auto) 0.1, Absolute Neuts (auto) 14.7 H, Absolute Lymphs (auto) 0.48 L, Nucleated RBC % 0, Differential Comment SCANNED 06/17/21 04:25: Sodium 139, Potassium 5.0, Chloride 99, Carbon Dioxide 39.0 H, Anion Gap 1 L, BUN 54 H, Creatinine 0.97, Estim Creat Clear Calc 71.49, Est GFR (MDRD) Af Amer 99, Est GFR (MDRD) Non-Af 82, BUN/Creatinine Ratio 55.4 H, Glucose 240 H, Calcium 8.6, Total Bilirubin 0.90, AST 25, ALT 58, Alkaline Phosphatase 53, Total Protein 5.9 L, Albumin 2.5 L, Globulin 3.4, Albumin/Globulin Ratio 0.7 L Micro: Microbiology 06/16/21 01:05 Nasal Secretion SARS-CoV-2 Antigen (Rapid) - Final 06/09/21 19:33 Sputum, Induced/Lukens Gram Stain - Final 06/09/21 19:33 Sputum, Induced/Lukens Respiratory Culture - Final Culture exhibits no growth. 06/10/21 06:49 Mucosa - Nasopharyngeal Respiratory Panel (PCR) - Final Physical Exam Const no apparent distress Constitutional Narrative: RASS -1. On Airvo Orientation / Consciousness: confused HEENT normocephalic and head/scalp atraumatic Eyes PERRL and EOMs intact bilaterally Neck supple General: trachea midline Chest Chest Narrative: Increased AP diameter Chest: symmetrical chest wall rise; Negative for crepitus Resp Auscultation: diminished lung sounds; Negative for rales, rhonchi or wheezes Cardio S1 normal heart sound, S2 normal heart sound, no murmurs, no rub and no gallops GI soft to palpation and non-tender GI Narrative: Much less distended today Auscultation: normoactive bowel sounds Palpation: Negative for guarding or rigid Extremity General Extremity: edema bilateral (1+); Negative for clubbing or cyanosis Skin no rashes or lesions noted Neuro Sensorium / Orientation: sedated on vent Charges/Coding Visit Charges Inpatient E&M: 14325 Subs Hosp L3
[2021-06-17] MEDS: Ipratropium/Albuterol Sulfate 3 ML AMPUL.NEB INHALATION ×4 (07:26→19:25)
--- NOTE | 2021-06-17 08:22 | PN.HOSP_ITS ---
Subjective Subjective Follow-up on Acute respiratory failure/COPD exacerbation/pneumonia: Patient was seen and examined. He remains on Airvo FiO2 51%. Patient did fairly well yesterday in the afternoon. Overnight he became agitated again. He was started on Precedex and his Seroquel was increased. Objective Data Objective Data Vital Signs: Vital Signs Temp Pulse Resp BP Pulse Ox 98.3 F 71 18 110/60 96 06/17/21 04:00 06/17/21 07:27 06/17/21 07:27 06/17/21 06:00 06/17/21 07:27 Oxygen Flow Rate (L/min) 50 Oxygen Delivery Method Airvo Weight: 81.6 kg Body Mass Index (BMI) 28.0 Intake & Output: Intake and Output for Last 24 Hours 06/15/21 06/16/21 06/17/21 23:59 23:59 23:59 Intake Total 1298.89 / 1306.52 1422.88 / 1422.88 258.85 / 258.85 Output Total 2050 / 2300 3800 / 4150 550 / 550 Balance -751.11 / -993.48 -2377.12 / -2727.12 -291.15 / -291.15 Lab / Micro Data Result Diagrams: 06/17/21 04:25 06/17/21 04:25 Labs: Laboratory Results - last 24 hr 06/16/21 11:23: POC Glucose 131 H 06/16/21 16:53: POC Glucose 303 H 06/16/21 21:59: POC Glucose 148 H 06/17/21 04:25: WBC 15.8 H, RBC 4.70, Hgb 14.2, Hct 42.9, MCV 91.3, MCH 30.2, MCHC 33.1, RDW Std Deviation 48.3 H, RDW Coeff of Bobo 14.6, Plt Count 216, MPV 9.8, Immature Gran % (Auto) 0.600, Neut % (Auto) 92.8 H, Lymph % (Auto) 3.0 L, Moore % (Auto) 3.3, Eos % (Auto) 0.2, Baso % (Auto) 0.1, Absolute Neuts (auto) 14.7 H, Absolute Lymphs (auto) 0.48 L, Nucleated RBC % 0, Differential Comment SCANNED 06/17/21 04:25: Sodium 139, Potassium 5.0, Chloride 99, Carbon Dioxide 39.0 H, Anion Gap 1 L, BUN 54 H, Creatinine 0.97, Estim Creat Clear Calc 71.49, Est GFR (MDRD) Af Amer 99, Est GFR (MDRD) Non-Af 82, BUN/Creatinine Ratio 55.4 H, Glucos e 240 H, Calcium 8.6, Total Bilirubin 0.90, AST 25, ALT 58, Alkaline Phosphatase 53, Total Protein 5.9 L, Albumin 2.5 L, Globulin 3.4, Albumin/Globulin Ratio 0.7 L Micro: Microbiology 06/16/21 01:05 Nasal Secretion SARS-CoV-2 Antigen (Rapid) - Final 06/09/21 19:33 Sputum, Induced/Lukens Gram Stain - Final 06/09/21 19:33 Sputum, Induced/Lukens Respiratory Culture - Final Culture exhibits no growth. 06/10/21 06:49 Mucosa - Nasopharyngeal Respiratory Panel (PCR) - Final Physical Exam Narrative Physical exam: General:Alert, in mild respiratory distress, with increase work of breathing and use of accessory muscles of breathing, on Airvo HEENT: Atraumatic Oral: Moist Mucosa Neck: Supple Lungs: Barrel-shaped chest, diminished to auscultation, Cardiovascular: HS I+II, regular, no murmurs Abdomen: Bowel Sounds Present, Soft, Non Tender, abdomen feels a lot softer Extremities: No edema Assessment & Plan Assessment/Plan (1) Acute respiratory failure with hypoxia and hypercapnia: (2) Pneumonia: QUALIFIERS: Pneumonia type: due to unspecified organism Laterality: right Lung location: lower lobe of lung Qualified Code(s): J18.9 - Pneumonia, unspecified organism (3) COPD exacerbation: PLAN: 1. Acute combined respiratory failure secondary to Acute COPD exacerbation/pneumonia Status post extubation today, 06/15/21, currently on Airvo Continue breathing treatments and treatment for #2 and #3 Continue to monitor oxygenation. Spiral Gear Generator following 2. Pneumonia, MRSA negative, completed 7 days of antibiotics Patient is on Meropenem; will discontinue today as cultures have been negative and patient is improved clinically Chest x-ray 06/15/21 showed consolidative infiltrates or atelectasis in the lung bases 3. Acute COPD exacerbation, continue on prednisone 4. CELSO, likely prerenal, resolved Off Vancomycin and Lasix 5. Dysphagia, mild to moderate oral pharyngeal phase, likely related to recent intubation, Speech therapy consulted, on modified nectar thick diet 6. Elevated troponin secondary to acute type II non-STEMI, Will continue to monitor 7. Type II DM, HbA1c 6.5, blood sugars are better controlled Off Lantus secondary to NPO status, continue on ISS with blood glucose checks. 8. DVT prophylaxis - Lovenox SC 9. GI PPx- PPI Charges/Coding Visit Charges Inpatient E&M: 23999 Subs Hosp L2
--- NOTE | 2021-06-17 08:23 | EKG12_ITS ---
Test Reason : QTC Blood Pressure : / mmHG Vent. Rate : 055 BPM Atrial Rate : 055 BPM P-R Int : 166 ms QRS Dur : 096 ms QT Int : 428 ms P-R-T Axes : 065 020 060 degrees QTc Int : 409 ms Sinus bradycardia Low voltage QRS Borderline ECG No previous ECGs available Confirmed by SOO LOPEZ, JUAN M ([id number]), marketing editor BRUNA ROWELL ([id number]) on 06/27/2021 8:26:30 AM Referred By: William Monroe Confirmed By:JUAN M VANN MD
[2021-06-17 09:01] LABS: Bedside Glucose 193 mg/dL (74-106)
[2021-06-17] MEDS: Enoxaparin 40 MG/0.4 ML Syringe SC (10:12)
[2021-06-17] MEDS: Insulin Lispro 100 UNIT/ML INSULN.PEN SC ×2 (10:12→17:42)
[2021-06-17] MEDS: QUEtiapine 100 MG Tablet 200 MG PO ×2 (10:13→21:12)
[2021-06-17] MEDS: predniSONE 20 MG Tablet 40 MG PO (10:14)
[2021-06-17] MEDS: CHLORHEXIDINE GLUC 2% CLOTH 1 EACH TOWELETTE TOPICAL (10:22)
--- NOTE | 2021-06-17 12:00 | CASEMGMT ---
Social Work Pt's is here. SW let pt and know that if rehab is needed, it is anticipated that TCU would be able to take pt. SW explained we would need to get precert from insurance. states understanding. asked about getting a smaller shower chair for their downstairs shower. SW explained that wherever pt leaves for home from, SW or CM will talk w/them about DME for home. SW will continue to follow. GEN Peterson
[2021-06-17 13:05] LABS: Bedside Glucose 125 mg/dL (74-106)
[2021-06-17] MEDS: Glucerna Shake 120 ML LIQUID PO ×3 (15:44→21:12)
[2021-06-17 17:41] LABS: Bedside Glucose 182 mg/dL (74-106)
[2021-06-17 21:21] LABS: Bedside Glucose 144 mg/dL (74-106)
[2021-06-17] MEDS: hydrOXYzine PAM 25 MG Capsule 50 MG PO (23:32)
[2021-06-17] MEDS: Dexmedetomidine 1,000 mcg in 0.9% NS 240 mL 10.9 MCG CONT INF (23:55)
[2021-06-18] VITALS (23 sets, daily range): BP systolic 103–124; BP diastolic 57–91; PULSE 62–120; RESP 16–34; TEMP 36.6–37.3; O2SAT 92–97
[2021-06-18] MEDS: Ipratropium/Albuterol Sulfate 3 ML AMPUL.NEB INHALATION ×6 (01:05→22:49)
[2021-06-18 04:15] LABS: Absolute Lymphocyte Count 0.84 X10^3/uL (0.83-4.51); Absolute Neutrophil Count 12.2 X10^3/uL (2.0-7.7); Basophil# 0.02 X10^3/uL; Basophil% 0.1 % (0-1); Eosinophil# 0.17 X10^3/uL; Eosinophils% 1.2 % (0-5); Hematocrit 42.4 % (40-54); Hemoglobin 14.1 g/dL (13.0-16.5); Lymphocyte # 0.84 X10^3/ul (0.83-4.51); Lymphocyte % 5.8 % (19-41); Mean Corp Hgb Conc 33.3 g/dL (32-36); Mean Corpuscular Hgb 30.8 pg (27.0-32.0); Mean Corpuscular Volume 92.6 fL (80-94); Mean Platelet Vol. 9.7 fl (6.2-12.0); Monocyte# 1.12 X10^3/uL; Monocyte% 7.8 % (0-10); NRBC Flagged by Analyzer 0 % (0-5); Neutrophil # 12.15 X10^3/uL (2.7-7.7); Neutrophil % 84.5 % (47-70); Platelet Count 214 K/mm3 (150-450); RBC Distribution Width CV 14.7 % (11.6-14.6); RBC Distribution Width SD 49.1 fl (35.1-43.9); Red Blood Count 4.58 M/mm3 (4.6-6.2); White Blood Count 14.4 K/mm3 (4.4-11.0)
[2021-06-18 04:32] LABS: ALB/GLOB Ratio 0.8 RATIO (0.9-2.4); AST(SGOT) 36 U/L (15-37); Alanine Aminotransfer ALT/SGPT 61 U/L (16-61); Albumin, Serum 2.5 g/dL (3.2-5.0); Alkaline Phosphatase 50 U/L (45-117); Anion Gap 1 (5-15); BUN 44 mg/dL (7-18); BUN/Creat Ratio 55.2 RATIO (10-20); Calcium,Total 8.6 mg/dL (8.5-10.1); Chloride 105 mmol/L (98-107); EST Glomerular Filtration Rate 103 mL/min (>60); Est Glom Filt Rate - Afr Amer 124 mL/min (>60); Estimated Creatinine Clearance 86.69 ml/min; Globulin 3.3 g/dL (2.2-4.2); Glucose 179 mg/dL (74-106); Potassium 4.1 mmol/L (3.5-5.1); Protein, Total 5.8 g/dL (6.4-8.2); Sodium Level 143 mmol/L (136-145)
--- NOTE | 2021-06-18 06:32 | PN.CC_ITS ---
Assessment & Plan Assessment/Plan (1) Acute respiratory failure with hypoxia and hypercapnia: PLAN: RECOMMENDATIONS: 1. Continue Airvo for now. Wean FiO2/PEEP for saturations greater than 90%. 2. Continue modified diet per speech therapy 3. Completed total of 7 days of antibiotics. Monitor off antibiotics 4. Continue scheduled bronchodilators. Wean prednisone over the next 12 to 14 days 5. Continue appropriate DVT and GI prophylaxis. Discontinue aggressive bowel regimen 6. Wean off Precedex. 7. Continue Seroquel and diuresis 8. Likely okay to leave the intensive care unit from my perspective IMPRESSIONS: 1. Respiratory failure with hypoxemia and hypercapnia, of unclear chronicity The patient has an apparent history of COPD along with chronic tobacco dependency. However, we do not have any records of any prior pulmonary function studies. In addition, it is still unclear if the patient truly utilizes supplemental oxygen at his baseline. The patient did have bilateral interstitial infiltrates noted on chest imaging. Therefore, it is certainly reasonable to continue antimicrobials to cover for an underlying pulmonary infectious process. Echocardiogram did not reveal any significant LV dysfun ction. CTA chest was negative for pulmonary embolism. We will plan to continue scheduled bronchodilators. Patient will need to complete a 12-day taper of steroids. FiO2 and PEEP will be weaned to maintain oxygen saturations at or above 90%. Patient successfully extubated, but continues to be relatively hypoxic. Patient has completed this course of antibiotics. Patient has continued to diurese and is almost even for the hospitalization. 2. Troponin elevation Likely secondary to demand ischemia in the setting of #1. Surface echocardiogram was unremarkable. 3. Chronic tobacco dependency/insulin resistance The exact pack-year smoking history is unclear. Nevertheless, nicotine replacement therapy can be utilized while the patient is admitted to the hospital. Okay to continue tube feeds today from my perspective. Off insulin therapy secondary to decreased p.o. intake 4. Delirium/metabolic encephalopathy Unclear how much of patient's impulsivity is baseline versus delirium. Benzodiazepines will be avoided. Patient is on Seroquel. Continue to wean Precedex as tolerated. Patient may have an element of alcohol withdrawal. Attempt to discontinue Precedex. Could consider phenobarbital instead of Seroquel, but this may increase risk of hypercapnic respiratory failure. Subjective Subjective Patient did well overnight. No acute issues were reported outside of some agitation around 11 PM. Patient ultimately was placed back on Precedex overnight to help with sleep. Patient reportedly admitted to routine intake of vodka. Patient denies any history of previous withdrawal to hi. Objective Data Objective Data Vital Signs: Vital Signs Temp Pulse Resp BP Pulse Ox 36.6 C 67 21 H 124/91 H 94 06/18/21 06:00 06/18/21 06:00 06/18/21 06:00 06/18/21 06:00 06/18/21 06:00 Oxygen Flow Rate (L/min) 40 Oxygen Delivery Method Airvo Weight: 81.6 kg Body Mass Index (BMI) 28.0 Intake & Output: Intake and Output for Last 24 Hours 06/16/21 06/17/21 06/18/21 23:59 23:59 23:59 Intake Total 1422.88 / 1422.88 497.03 / 617.03 473.66 / 473.66 Output Total 3800 / 4150 1750 / 2200 850 / 850 Balance -2377.12 / -2727.12 -1252.97 / -1582.97 -376.34 / -376.34 Lab / Micro Data Result Diagrams: 06/18/21 04:00 06/18/21 04:00 Labs: Laboratory Results - last 24 hr 06/17/21 08:56: POC Glucose 193 H 06/17/21 12:56: POC Glucose 125 H 06/17/21 17:36: POC Glucose 182 H 06/17/21 21:10: POC Glucose 144 H 06/18/21 04:00: WBC 14.4 H, RBC 4.58 L, Hgb 14.1, Hct 42.4, MCV 92.6, MCH 30.8, MCHC 33.3, RDW Std Deviation 49.1 H, RDW Coeff of Bobo 14.7 H, Plt Count 214, MPV 9.7, Immature Gran % (Auto) 0.600, Neut % (Auto) 84.5 H, Lymph % (Auto) 5.8 L, [place] % (Auto) 7.8, Eos % (Auto) 1.2, Baso % (Auto) 0.1, Absolute Neuts (auto) 12.2 H, Absolute Lymphs (auto) 0.84, Nucleated RBC % 0 06/18/21 04:00: Sodium 143, Potassium 4.1, Chloride 105, Carbon Dioxide 37.0 H, Anion Gap 1 L, BUN 44 H, Creatinine 0.80, Estim Creat Clear Calc 86.69, Est GFR (MDRD) Af Amer 124, Est GFR (MDRD) Non-Af 103, BUN/Creatinine Ratio 55.2 H, Glucose 179 H, Calcium 8.6, Total Bilirubin 1.00, AST 36, ALT 61, Alkaline Andre sphatase 50, Total Protein 5.8 L, Albumin 2.5 L, Globulin 3.3, Albumin/Globulin Ratio 0.8 L Micro: Microbiology 06/16/21 01:05 Nasal Secretion SARS-CoV-2 Antigen (Rapid) - Final 06/09/21 19:33 Sputum, Induced/Lukens Gram Stain - Final 06/09/21 19:33 Sputum, Induced/Lukens Respiratory Culture - Final Culture exhibits no growth. 06/10/21 06:49 Mucosa - Nasopharyngeal Respiratory Panel (PCR) - Final Physical Exam Const no apparent distress Constitutional Narrative: RASS -1. On Airvo Orientation / Consciousness: confused HEENT normocephalic and head/scalp atraumatic Eyes PERRL and EOMs intact bilaterally Neck supple General: trachea midline Chest Chest Narrative: Increased AP diameter Chest: symmetrical chest wall rise; Negative for crepitus Resp Auscultation: diminished lung sounds; Negative for rales, rhonchi or wheezes Cardio S1 normal heart sound, S2 normal heart sound, no murmurs, no rub and no gallops GI soft to palpation, non-tender and non-distended Auscultation: normoactive bowel sounds Palpation: Negative for guarding or rigid Extremity General Extremity: edema bilateral (1+); Negative for clubbing or cyanosis Skin no rashes or lesions noted Neuro oriented x3, CN's II-XII intact bilaterally, moves all extremities and no focal motor deficits Charges/Coding Visit Charges Inpatient E&M: 03698 Subs Hosp L3
[2021-06-18] MEDS: Insulin Lispro 100 UNIT/ML INSULN.PEN SC ×4 (08:32→22:16)
[2021-06-18] MEDS: predniSONE 20 MG Tablet 40 MG PO (08:33)
[2021-06-18] MEDS: Enoxaparin 40 MG/0.4 ML Syringe SC (08:33)
[2021-06-18] MEDS: QUEtiapine 100 MG Tablet 200 MG PO ×2 (08:33→22:15)
[2021-06-18 08:46] LABS: Bedside Glucose 160 mg/dL (74-106)
[2021-06-18] MEDS: Haloperidol Lactate 5 MG/ML Vial 2 MG IV (10:20)
--- NOTE | 2021-06-18 10:52 | PN.HOSP_ITS ---
Subjective Subjective Follow-up on Acute respiratory failure/COPD exacerbation/pneumonia: Patient was seen and examined. He remains on Airvo, FiO2 38%, 50 L. Overnight, patient was agitated requiring restart of Precedex. No other events overnight. Objective Data Objective Data Vital Signs: Vital Signs Temp Pulse Resp BP Pulse Ox 98.3 F 62 22 H 120/60 97 06/18/21 08:00 06/18/21 08:00 06/18/21 08:00 06/18/21 08:00 06/18/21 08:00 Oxygen Flow Rate (L/min) 5 Oxygen Delivery Method Nasal Cannula Weight: 81.6 kg Body Mass Index (BMI) 28.0 Intake & Output: Intake and Output for Last 24 Hours 06/16/21 06/17/21 06/18/21 23:59 23:59 23:59 Intake Total 1422.88 / 1422.88 497.03 / 617.03 589.71 / 589.71 Output Total 3800 / 4150 1750 / 2200 850 / 850 Balance -2377.12 / -2727.12 -1252.97 / -1582.97 -260.29 / -260.29 Lab / Micro Data Result Diagrams: 06/18/21 04:00 06/18/21 04:00 Labs: Laboratory Results - last 24 hr 06/17/21 12:56: POC Glucose 125 H 06/17/21 17:36: POC Glucose 182 H 06/17/21 21:10: POC Glucose 144 H 06/18/21 04:00: WBC 14.4 H, RBC 4.58 L, Hgb 14.1, Hct 42.4, MCV 92.6, MCH 30.8, MCHC 33.3, RDW Std Deviation 49.1 H, RDW Coeff of Bobo 14.7 H, Plt Count 214, MPV 9.7, Immature Gran % (Auto) 0.600, Neut % (Auto) 84.5 H, Lymph % (Auto) 5.8 L, [place] % (Auto) 7.8, Eos % (Auto) 1.2, Baso % (Auto) 0.1, Absolute Neuts (auto) 12.2 H, Absolute Lymphs (auto) 0.84, Nucleated RBC % 0 06/18/21 04:00: Sodium 143, Potassium 4.1, Chloride 105, Carbon Dioxide 37.0 H, Anion Gap 1 L, BUN 44 H, Creatinine 0.80, Estim Creat Clear Calc 86.69, Est GFR (MDRD) Af Amer 124, Est GFR (MDRD) Non-Af 103, BUN/Creatinine Ratio 55.2 H, Glucose 179 H, Calcium 8.6, Total Bilirubin 1.00, AST 36, ALT 61, Alkaline Phosphatase 50, Total Protein 5.8 L, Albumin 2.5 L, Globulin 3.3, Albumin/Globulin Ratio 0.8 L 06/18/21 08:31: POC Glucose 160 H Micro: Microbiology 06/16/21 01:05 Nasal Secretion SARS-CoV-2 Antigen (Rapid) - Final 06/09/21 19:33 Sputum, Induced/Lukens Gram Stain - Final 06/09/21 19:33 Sputum, Induced/Lukens Respiratory Culture - Final Culture exhibits no growth. 06/10/21 06:49 Mucosa - Nasopharyngeal Respiratory Panel (PCR) - Final Physical Exam Narrative Physical exam: General:Alert, in mild respiratory distress, on Airvo HEENT: Atraumatic Oral: Moist Mucosa Neck: Supple Lungs: Barrel-shaped chest, diminished to auscultation, Cardiovascular: HS I+II, regular, no murmurs Abdomen: Bowel Sounds Present, Soft, Non Tender, abdomen feels a lot softer Extremities: No edema Assessment & Plan Assessment/Plan (1) Acute respiratory failure with hypoxia and hypercapnia: (2) Pneumonia: QUALIFIERS: Pneumonia type: due to unspecified organism Laterality: right Lung location: lower lobe of lung Qualified Code(s): J18.9 - Pneumonia, unspecified organism (3) COPD exacerbation: PLAN: 1. Acute combined respiratory failure secondary to Acute COPD exacerbation/pneumonia Status post extubation today, 06/15/21, remains on Airvo Continue breathing treatments and treatment for #2 and #3 Continue to monitor oxygenation. 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 Pneumonia, MRSA negative, completed 7 days of antibiotics Sputum cultures are negative. Chest x-ray 06/15/21 showed consolidative infiltrates or atelectasis in the lung bases Continue to encourage use of incentive spirometer 3. Acute COPD exacerbation, continue on prednisone taper 4. Acute hyperactive delirium/ICU delirium, necessitating re-use of Precedex. Patient is on increased dose of Seroquel 200 mg twice daily Will recommend use of Haldol as needed 5. CELSO, likely prerenal, resolved Off Vancomycin and Lasix 6. Dysphagia, mild to moderate oral pharyngeal phase, likely related to recent intubation, Speech therapy following, on modified nectar thick diet 7. Elevated troponin secondary to acute type II non-STEMI, Will continue to monitor 8. Type II DM, HbA1c 6.5, blood sugars are better controlled Continue on ISS with blood glucose checks. 9. DVT prophylaxis - Lovenox SC 10. GI PPx- PPI Charges/Coding Visit Charges Inpatient E&M: 24969 Subs Hosp L2
[2021-06-18 12:30] LABS: Bedside Glucose 190 mg/dL (74-106)
[2021-06-18 17:35] LABS: Bedside Glucose 236 mg/dL (74-106)
[2021-06-18 22:21] LABS: Bedside Glucose 173 mg/dL (74-106)
[2021-06-19] VITALS (12 sets, daily range): BP systolic 110–126; BP diastolic 53–70; PULSE 74–119; RESP 18–22; TEMP 36.1–36.6; O2SAT 83–94
[2021-06-19 06:30] LABS: Absolute Lymphocyte Count 0.93 X10^3/uL (0.83-4.51); Absolute Neutrophil Count 8.9 X10^3/uL (2.0-7.7); Basophil# 0.04 X10^3/uL; Basophil% 0.4 % (0-1); Eosinophil# 0.23 X10^3/uL; Hematocrit 43.2 % (40-54); Hemoglobin 13.8 g/dL (13.0-16.5); Lymphocyte # 0.93 X10^3/ul (0.83-4.51); Lymphocyte % 8.3 % (19-41); Mean Corp Hgb Conc 31.9 g/dL (32-36); Mean Corpuscular Hgb 30.3 pg (27.0-32.0); Mean Corpuscular Volume 94.7 fL (80-94); Mean Platelet Vol. 9.9 fl (6.2-12.0); Monocyte# 1.08 X10^3/uL; Monocyte% 9.6 % (0-10); NRBC Flagged by Analyzer 0 % (0-5); Neutrophil # 8.92 X10^3/uL (2.7-7.7); Neutrophil % 79.2 % (47-70); Platelet Count 229 K/mm3 (150-450); RBC Distribution Width SD 51.7 fl (35.1-43.9); Red Blood Count 4.56 M/mm3 (4.6-6.2); White Blood Count 11.3 K/mm3 (4.4-11.0)
[2021-06-19] MEDS: Ipratropium/Albuterol Sulfate 3 ML AMPUL.NEB INHALATION ×2 (06:37→11:05)
[2021-06-19 06:41] LABS: Bedside Glucose 143 mg/dL (74-106)
[2021-06-19 06:58] LABS: ALB/GLOB Ratio 0.8 RATIO (0.9-2.4); AST(SGOT) 26 U/L (15-37); Alanine Aminotransfer ALT/SGPT 51 U/L (16-61); Albumin, Serum 2.5 g/dL (3.2-5.0); Alkaline Phosphatase 50 U/L (45-117); Anion Gap 1 (5-15); BUN 40 mg/dL (7-18); BUN/Creat Ratio 49.9 RATIO (10-20); Chloride 108 mmol/L (98-107); EST Glomerular Filtration Rate 102 mL/min (>60); Est Glom Filt Rate - Afr Amer 124 mL/min (>60); Estimated Creatinine Clearance 86.69 ml/min; Globulin 3.3 g/dL (2.2-4.2); Glucose 146 mg/dL (74-106); Protein, Total 5.8 g/dL (6.4-8.2); Sodium Level 144 mmol/L (136-145)
--- NOTE | 2021-06-19 07:42 | PCM.PN.HOSP ---
Subjective Subjective Objective Data Objective Data Vital Signs: Vital Signs Temp Pulse Resp BP Pulse Ox 97.0 F L 84 20 H 115/53 L 94 06/19/21 03:47 06/19/21 06:37 06/19/21 06:37 06/19/21 03:47 06/19/21 06:37 Oxygen Flow Rate (L/min) 2 Oxygen Delivery Method Nasal Cannula Weight: 180 lb 8.937 oz Body Mass Index (BMI) 28.0 Intake & Output: Intake and Output for Last 24 Hours 06/17/21 06/18/21 06/19/21 23:59 23:59 23:59 Intake Total 497.03 / 617.03 1060.46 / 1060.46 100 / 100 Output Total 1750 / 2200 1750 / 1750 Balance -1252.97 / -1582.97 -689.54 / -689.54 100 / 100 Lab / Micro Data Result Diagrams: 06/19/21 05:30 06/19/21 05:30 Labs: Laboratory Results - last 24 hr 06/18/21 08:31: POC Glucose 160 H 06/18/21 12:25: POC Glucose 190 H 06/18/21 17:06: POC Glucose 236 H 06/18/21 22:01: POC Glucose 173 H 06/19/21 05:30: WBC 11.3 H, RBC 4.56 L, Hgb 13.8, Hct 43.2, MCV 94.7 H, MCH 30.3, MCHC 31.9 L, RDW Std Deviation 51.7 H, RDW Coeff of Bobo 15.0 H, Plt Count 229, MPV 9.9, Immature Gran % (Auto) 0.500, Neut % (Auto) 79.2 H, Lymph % (Auto) 8.3 L, [place] % (Auto) 9.6, Eos % (Auto) 2.0, Baso % (Auto) 0.4, Absolute Neuts (auto) 8.9 H, Absolute Lymphs (auto) 0.93, Nucleated RBC % 0 06/19/21 05:30: Sodium 144, Potassium 4.0, Chloride 108 H, Carbon Dioxide 35.0 H, Anion Gap 1 L, BUN 40 H, Creatinine 0.80, Estim Creat Clear Calc 86.69, Est GFR (MDRD) Af Amer 124, Est GFR (MDRD) Non-Af 102, BUN/Creatinine Ratio 49.9 H, Glucose 146 H, Calcium 9.0, Total Bilirubin 1.00, AST 26, ALT 51, Alkaline Phosphatase 50, Total Protein 5.8 L, Albumin 2.5 L, Globulin 3.3, Albumin/Globulin Ratio 0.8 L 06/19/21 06:37: POC Glucose 143 H Micro: Microbiology 06/16/21 01:05 Nasal Secretion SARS-CoV-2 Antigen (Rapid) - Final 06/09/21 19:33 Sputum, Induced/Lukens Gram Stain - Final 06/09/21 19:33 Sputum, Induced/Lukens Respiratory Culture - Final Culture exhibits no growth. 06/10/21 06:49 Mucosa - Nasopharyngeal Respiratory Panel (PCR) - Final Assessment & Plan Assessment/Plan (1) Acute respiratory failure with hypoxia and hypercapnia: (2) Pneumonia: QUALIFIERS: Laterality: right Lung location: lower lobe of lung Pneumonia type: due to unspecified organism Qualified Code(s): J18.9 - Pneumonia, unspecified organism (3) COPD exacerbation:
--- NOTE | 2021-06-19 09:24 | PN.CC_ITS ---
Assessment & Plan Assessment/Plan (1) Acute respiratory failure with hypoxia and hypercapnia: PLAN: RECOMMENDATIONS: 1. Wean supplemental oxygen to maintain saturations at or above 90%. 2. Continue scheduled bronchodilators and prednisone. Provide with prednisone taper at discharge. 3. Continue appropriate DVT prophylaxis. 4. Perform walking oximetry study prior to consideration for discharge home. 5. Encourage incentive spirometer use and mobilize patient as tolerated. IMPRESSIONS: 1. Respiratory failure with hypoxemia and hypercapnia, of unclear chronicity The patient has an apparent history of COPD along with chronic tobacco dependency. However, we do not have any records of any prior pulmonary function studies. The patient did have bilateral interstitial infiltrates noted on chest imaging. Therefore, the patient was treated with a full treatment course of antimicrobials. Echocardiogram did not reveal any significant LV dysfunction. CTA chest was negative for pulmonary embolism. Continue bronchodilators and p rednisone. Perform walking oximetry study prior to consideration for discharge home. 2. Troponin elevation Likely secondary to demand ischemia in the setting of #1. Surface echocardiogram was unremarkable. 3. Chronic tobacco dependency/insulin resistance The exact pack-year smoking history is unclear. Nevertheless, nicotine replacement therapy can be utilized while the patient is admitted to the hospital. This note was generated with [employer] dictation software. It may contain incorrect words, spelling, and punctuation that were not noted in checking the note before signing. Subjective Subjective The patient was seen and examined at the bedside this morning. Events from the last 24 hours have been reviewed. The patient is currently afebrile, hemodynamically stable and maintaining appropriate oxygen saturations on 2 L/min via nasal cannula. The patient is currently documented to be overall net +500 mL for the hospitalization. He remains on scheduled bronchodilators and prednisone. Objective Data Objective Data The patient's most recent lab work, culture data and imaging studies have all been personally reviewed. CTA chest showed no evidence for pulmonary embolism. Patchy airspace disease was noted in the right middle and lower lobe. Surface echocardiogram demonstrated normal LV size and function with an ejection fraction of 50 to 55%. Respiratory viral panel was negative. Outside hospital COVID antigen testing was negative. Vital Signs: Vital Signs Temp Pulse Resp BP Pulse Ox 97.0 F L 95 20 H 115/53 L 94 06/19/21 03:47 06/19/21 07:01 06/19/21 06:37 06/19/21 03:47 06/19/21 06:37 Oxygen Flow Rate (L/min) 2 Oxygen Delivery Method Nasal Cannula Weight: 81.9 kg Body Mass Index (BMI) 28.0 Intake & Output: Intake and Output for Last 24 Hours 06/17/21 06/18/21 06/19/21 23:59 23:59 23:59 Intake Total 497.03 / 617.03 1060.46 / 1060.46 100 / 100 Output Total 1750 / 2200 1750 / 1750 Balance -1252.97 / -1582.97 -689.54 / -689.54 100 / 100 Lab / Micro Data Result Diagrams: 06/19/21 05:30 06/19/21 05:30 Labs: Laboratory Results - last 24 hr 06/18/21 12:25: POC Glucose 190 H 06/18/21 17:06: POC Glucose 236 H 06/18/21 22:01: POC Glucose 173 H 06/19/21 05:30: WBC 11.3 H, RBC 4.56 L, Hgb 13.8, Hct 43.2, MCV 94.7 H, MCH 30.3, MCHC 31.9 L, RDW Std Deviation 51.7 H, RDW Coeff of Bobo 15.0 H, Plt Count 229, MPV 9.9, Immature Gran % (Auto) 0.500, Neut % (Auto) 79.2 H, Lymph % (Auto) 8.3 L, [place] % (Auto) 9.6, Eos % (Auto) 2.0, Baso % (Auto) 0.4, Absolute Neuts (auto) 8.9 H, Absolute Lymphs (auto) 0.93, Nucleated RBC % 0 06/19/21 05:30: Sodium 144, Potassium 4.0, Chloride 108 H, Carbon Dioxide 35.0 H , Anion Gap 1 L, BUN 40 H, Creatinine 0.80, Estim Creat Clear Calc 86.69, Est GFR (MDRD) Af Amer 124, Est GFR (MDRD) Non-Af 102, BUN/Creatinine Ratio 49.9 H, Glucose 146 H, Calcium 9.0, Total Bilirubin 1.00, AST 26, ALT 51, Alkaline Phosphatase 50, Total Protein 5.8 L, Albumin 2.5 L, Globulin 3.3, Albumin/Globulin Ratio 0.8 L 06/19/21 06:37: POC Glucose 143 H Micro: Microbiology 06/16/21 01:05 Nasal Secretion SARS-CoV-2 Antigen (Rapid) - Final 06/09/21 19:33 Sputum, Induced/Lukens Gram Stain - Final 06/09/21 19:33 Sputum, Induced/Lukens Respiratory Culture - Final Culture exhibits no growth. 06/10/21 06:49 Mucosa - Nasopharyngeal Respiratory Panel (PCR) - Final Physical Exam Const alert and no apparent distress Constitutional Narrative: Sitting in bedside recliner. General Appearance: cooperative HEENT normocephalic, head/scalp atraumatic and moist oral mucous membranes Eyes PERRL, EOMs intact bilaterally and conjunctivae normal Neck supple General: trachea midline Chest inspection of chest normal Resp Auscultation: diminished lung sounds; Negative for rales, rhonchi or wheezes Cardio regular rate and regular rhythm GI normal to inspection, nondistended, normoactive bowel sounds Extremity no clubbing, cyanosis or edema Skin no rashes or lesions noted Neuro CN's II-XII intact bilaterally, moves all extremities and no focal motor deficits Psych cooperative and affect normal Charges/Coding Visit Charges Inpatient E&M: 66173 Subs Hosp L2
[2021-06-19] MEDS: Glucerna Shake 120 ML LIQUID PO (09:33)
[2021-06-19] MEDS: Pantoprazole Sodium 40 MG Tablet PO (09:33)
[2021-06-19] MEDS: Enoxaparin 40 MG/0.4 ML Syringe SC (09:33)
[2021-06-19] MEDS: QUEtiapine 100 MG Tablet 200 MG PO (09:33)
[2021-06-19] MEDS: predniSONE 20 MG Tablet 60 MG PO (09:34)
--- NOTE | 2021-06-19 09:45 | CASEMGMT ---
XAVIER received a call from [facility] and TCU cannot take patient. XAVIER met with patient and his . SW let patient's know that TCU cannot take patient at discharge. Patient's said they would like outpatient therapy. She was wondering about a place in [place] that they could go to, but she did not know if they had Speech. XAVIER told her someone can check on this for her. 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
--- NOTE | 2021-06-19 10:34 | DCINST_ITS ---
Discharge Instructions Diet Discharge Diet: 2000 mg Sodium Diet Activity Discharge Activity: Return to Normal Activity Weight Bearing Status: Weight bearing as tolerated Dressing / Incision Call your doctor if you observe: Fever of 101 or Higher, Coldness, Increased Pain, Numbness or Tingling, Change in Color, Inability to urinate, Inability to have a bowel movement, Shortness of breath, Dizziness, Fainting spells, Swelling in the ankles, Chest pain, Prolonged hiccupping, Increased palpitations (irregular heartbeat), Calf discomfort and Uncontrolled pain Follow Up Care Test Results: Test results from this visit will be discussed in further detail at your follow-up appointment, if applicable. Discharge Plan Admission Admit Date/Time: 06/09/21 19:37 Primary Reason for Your Visit: Acute hypoxic respiratory failure due to COPD exacerbation Attending Provider: William Monroe Primary Care Provider: Ruby Jacinto NP Consulting Providers: Shaggy Salinas ; Roddy Cruz ; Berta Joseph NP Instructions Additional Instructions / Restrictions: The patient is states he has inhaler and nebulization. He states he has 1 rescue inhaler albuterol but does not remember the name of maintenance inhaler even after giving himself Pulmicort, Symbicort or Advair. Discharge Orders/Prescriptions Prescriptions: New pantoprazole 40 mg Tablet,Delayed Release (Dr/Ec) 40 mg PO DAILY Qty: 30 RF: 0 prednisone 10 mg tablet 10 mg PO DAILY Qty: 40 RF: 0 Referrals / Follow Up: Shaggy Salinas MD [STAFF PHYSICIAN] - Within 1 Month (For COPD) Berta Joseph NP, [facility] [Nurse Practitioner] - Within 2 Weeks (Acute hypoxic respiratory failure.) Ruby Jacinto NP, [facility] [Primary Care Provider] - Within 1 Week Disposition Disposition (needs filled in before D/C Order can be placed): Home, Self Care
--- NOTE | 2021-06-19 11:43 | DS.PCM_ITS ---
Providers Date of Admission: 06/09/21 Date of Discharge: 06/19/21 Primary Care Physician: YAEL Mcdaniel Consultations 06/10/21 05:50 Consult: [facility] / Pulmonary Medicine Routine Consulting Provider: Pulmonary Medicine dre Quinteros Reason for Consult: Respiratory Failure EMERGENT Consult: No MD Notified: Yes Date Notified: 06/10/21 Time Notified: 05:51 Method of Notification: Verbal Reason For Visit: hypercapnic and hypoxic resp failure Diagnosis Discharge Diagnosis (1) Acute respiratory failure with hypoxia and hypercapnia: Status: Acute Code(s): J96.01 - Acute respiratory failure with hypoxia; J96.02 - Acute respiratory failure with hypercapnia (2) Pneumonia: Status: Acute Code(s): J18.9 - Pneumonia, unspecified organism Qualifiers: Laterality: right Lung location: lower lobe of lung Pneumonia type: due to unspecified organism Qualified Code(s): J18.9 - Pneumonia, unspecified organism (3) COPD exacerbation: Status: Chronic Code(s): J44.1 - Chronic obstructive pulmonary disease with (acute) exacerbation Medications at Discharge Home Medications pantoprazole 40 mg PO DAILY #30 tab 06/19/21 prednisone 10 mg PO DAILY #40 tab 06/19/21 Hospital Course Summary of Care Provided Hospital Course: This 65-year-old gentleman who was directly admitted from outside hospital for acute hypoxic and hypercarbic respiratory failure with history of COPD. Patient was admitted directly in ICU, in intubated state on ventilator. In outside hospital, he was very short of breath, PCO2 was high at 91, pH 7.16 and he failed initial trial of BiPAP therefore intubated. Outside CTA and chest x-ray which shows right lower lobe pneumonia 1. Acute combined respiratory failure secondary to Acute COPD exacerbation/pneumonia Status post extubation on,06/15/21, remains on Airvo. Patient was transferred to PCU and monitored manage oxygen requirement continued to improve, most current 2L/min. Breathing treatment continued. 2. Right lower lobe pneumonia, exact microorganism unclear most likely bacterial, MRSA negative, completed 7 days of antibiotics Sputum cultures are negative. Chest x-ray 06/15/21 showed consolidative infiltrates or atelectasis in the lung bases Continue to encourage use of incentive spirometer 3. Acute COPD exacerbation, continue on prednisone taper. Patient discharged on prolonged prednisone taper and advised to follow-up in PCU. Patient states he has 2 inhalers at home out of which one his albuterol. He does not remember the name of maintenance inhaler but he still does not need refill. Advised to follow-up in pulmonary clinic in 2 weeks for PFT, inhalers and nebulizations review and techniques. Discussed with the patient and his . Prescriptions sent to his preferred pharmacy. 4. Acute hyperactive delirium/ICU delirium, necessitating re-use of Precedex. Patient is on increased dose of Seroquel 200 mg twice daily. Resolved 5. CELSO, likely prerenal, resolved Off Vancomycin and Lasix 6. Dysphagia, mild to moderate oral pharyngeal phase, likely related to recent intubation, Speech therapy following, on modified nectar thick diet 7. Elevated troponin secondary to acute type II non-STEMI, Will continue to monitor 8. Type II DM, HbA1c 6.5, blood sugars are better controlled Continue on ISS with blood glucose checks. Glucose is controlled. 9. DVT prophylaxis - Lovenox SC 10. GI PPx- PPI Discharge medication reconciliation done. Discharge follow-up instructions completed. Discharge process discussed with the patient and all questions were answered to patient's satisfaction. Discharge medications, inhalers and nebulization discussed with the patient and his . Patient is ambulatory in home and in the community and requires home oxygen with portability. Total time spent, exact 35 minutes on discharge meds reconciliation, examination, coordination of care with nurses and ancillary staff, review of imaging and blood test and discussion with the patient on follow-up instructions. Physical Exam Narrative General: Alert, Oriented x3, Cooperative HEENT: Atraumatic, PERRLA, EOMI, Normocephalic Oral: No Gingival or Mucosal Lesions/ Ulcerations Neck: Supple, No JVD, Negative Carotid Bruits Lungs: Air entry diminished in bilateral lung bases. No crepitation/rhonchi. On 2 L of oxygen at rest. Cardiovascular: Intermittent sinus tachycardia, Normal S1, Normal S2, No murmurs Abdomen: Bowel Sounds Present, Soft, Non Tender, Non-Distended : No renal angle tenderness. No suprapubic tenderness. Extremities: No edema, Capillary Refill Less than 3 Seconds Skin: No rashes, No breakdown Musculoskeletal: No Tenderness to Palpation of Joints or Extremities Neurological: Cranial nerves II-XII grossly intact, DTR 2+/4 and Symmetrical, Neuro grossly intact Psych/Mental Status: Normal Affect, Appropriate Weight / BMI Weight Weight: 180 lb 8.937 oz Body Mass Index (BMI) 28.0 ABG / Lab / Microbiology Data Result Diagrams: 06/19/21 05:30 06/19/21 05:30 Laboratory: Laboratory Results - last 24 hr 06/18/21 12:25: POC Glucose 190 H 06/18/21 17:06: POC Glucose 236 H 06/18/21 22:01: POC Glucose 173 H 06/19/21 05:30: WBC 11.3 H, RBC 4.56 L, Hgb 13.8, Hct 43.2, MCV 94.7 H, MCH 30.3, MCHC 31.9 L, RDW Std Deviation 51.7 H, RDW Coeff of Bobo 15.0 H, Plt Count 229, MPV 9.9, Immature Gran % (Auto) 0.500, Neut % (Auto) 79.2 H, Lymph % (Auto) 8.3 L, [place] % (Auto) 9.6, Eos % (Auto) 2.0, Baso % (Auto) 0.4, Absolute Neuts ( auto) 8.9 H, Absolute Lymphs (auto) 0.93, Nucleated RBC % 0 06/19/21 05:30: Sodium 144, Potassium 4.0, Chloride 108 H, Carbon Dioxide 35.0 H , Anion Gap 1 L, BUN 40 H, Creatinine 0.80, Estim Creat Clear Calc 86.69, Est GFR (MDRD) Af Amer 124, Est GFR (MDRD) Non-Af 102, BUN/Creatinine Ratio 49.9 H, Glucose 146 H, Calcium 9.0, Total Bilirubin 1.00, AST 26, ALT 51, Alkaline Phosphatase 50, Total Protein 5.8 L, Albumin 2.5 L, Globulin 3.3, Albumin/Globulin Ratio 0.8 L 06/19/21 06:37: POC Glucose 143 H Microbiology: Microbiology 06/16/21 01:05 Nasal Secretion SARS-CoV-2 Antigen (Rapid) - Final 06/09/21 19:33 Sputum, Induced/Lukens Gram Stain - Final 06/09/21 19:33 Sputum, Induced/[place]ukens Respiratory Culture - Final Culture exhibits no growth. 06/10/21 06:49 Mucosa - Nasopharyngeal Respiratory Panel (PCR) - Final D/C Instructions Discharge Diet: 2000 mg Sodium Diet Weight Bearing Status: Weight bearing as tolerated Call your doctor if you observe: Fever of 101 or Higher, Coldness, Increased Pain, Numbness or Tingling, Change in Color, Inability to urinate, Inability to have a bowel movement, Shortness of breath, Dizziness, Fainting spells, Swelling in the ankles, Chest pain, Prolonged hiccupping, Increased palpitations (irregular heartbeat), Calf discomfort and Uncontrolled pain Meaningful Use Info Meaningful Use Diagnoses (Choose all that apply): None applicable Discharge Plan Admission Admit Date/Time: 06/09/21 19:37 Primary Reason for Your Visit: Acute hypoxic respiratory failure due to COPD exacerbation Attending Provider: William Monroe Primary Care Provider: Ruby Jacinto NP Consulting Providers: Shaggy Salinas ; Roddy Cruz ; Berta Joseph NP Instructions Additional Instructions / Restrictions: The patient is states he has inhaler and nebulization. He states he has 1 rescue inhaler albuterol but does not remember the name of maintenance inhaler even after giving himself Pulmicort, Symbicort or Advair. Discharge Orders/Prescriptions Prescriptions: New pantoprazole 40 mg Tablet,Delayed Release (Dr/Ec) 40 mg PO DAILY Qty: 30 RF: 0 prednisone 10 mg tablet 10 mg PO DAILY Qty: 40 RF: 0 Referrals / Follow Up: Shaggy Salinas MD [STAFF PHYSICIAN] - Within 1 Month (For COPD) Berta Joseph NP, ELECTRIC DRILL OPERATOR-C [Nurse Practitioner] - Within 2 Weeks (Acute hypoxic respiratory failure.) Ruby Jacinto NP, KENROY-C [Primary Care Provider] - Within 1 Week Disposition Disposition (needs filled in before D/C Order can be placed): Home, Self Care
--- NOTE | 2021-06-19 11:46 | CASEMGMT ---
Per Jerad PARK, [facility] can no longer accept pt and pt/ are agreeable to OP therapy(as pt won't be homebound) at [facility]. Order obtained and faxed. Pt also qualified for 2L nc continuous home oxygen and pt/ state they would like [facility] in [place]. Per [employer] website, [facility] is not in-network with pt's insurance and per their website, they no longer do home oxygen. Pt/ updated on list of in-network DME companies and they choose [facility] at this time. Order obtained and faxed to [facility]. Pt/ voice no further questions/concerns/needs. Aaron JANSEN CM
--- NOTE | 2021-06-19 14:16 | NURSING ---
Pt refused sliding scale insulin, going to eat lunch when he gets home after discharge.
[2021-06-19 14:21] LABS: Bedside Glucose 187 mg/dL (74-106)
--- NOTE | 2021-06-19 15:00 | CASEMGMT ---
Addendum entered by Mariza Santoyo 06/19/21 15:29: [facility] returned with full tank for pt. Aaron JANSEN CM Original Note: [facility] delivered empty tank to pt for discharge. Call to [facility] to make aware as pt has been waiting for tank for several hours already. Per Macy at [facility], they are speaking with pt to rectify situation. Aaron JANSEN CM
--- NOTE | 2021-06-19 15:09 | NURSING ---
Reviewed charting with elsi De Los Santos RN
--- NOTE | 2021-06-19 15:23 | PHA.DC.MC ---
Pharmacy Service has performed discharge medication reconciliation and counseling for this patient. 1. PANTOPRAZOLE 40MG PO DAILY 2. PREDNISONE 40MG ONCE DAILY X 4 DAYS, THEN 30MG X 4 DAYS, THEN 20MG X 4 DAYS, THEN 10MG X 4 DAYS The patient's discharge medication list was reviewed for discrepancies and discrepancies were resolved. Home Medications pantoprazole 40 mg PO DAILY #30 tab 06/19/21 prednisone 10 mg PO DAILY #40 tab 06/19/21 The patient was counseled on the following discharge medications and changes in medications for homegoing were reviewed. The Reason for Use, instructions for use, and potential side effects were reviewed for all new medications. The patient's questions regarding all of their medications were answered. The patient was able to verbally demonstrate an understanding of their discharge medications.
== END 2021-06-19 15:32 | disposition home or self-care (01) | DRG 207 ==
LOC: ICU 06-18 07:27 → PCU 06-18 15:33
PROVIDERS: Hospitalist; Internal Medicine; Internal Medicine Critical Care Medicine; Admitting Provider Family Medicine; PCP Nurse Practitioner Family; Visit Provider Internal Medicine
DX: J44.1 Chronic obstructive pulmonary disease with (acute) exacerbation (principal); I21.A1 Myocardial infarction type 2; J96.01 Acute respiratory failure with hypoxia; J96.02 Acute respiratory failure with hypercapnia; J18.9 Pneumonia, unspecified organism; F05 Delirium due to known physiological condition; N17.9 Acute kidney failure, unspecified; J44.0 Chronic obstructive pulmonary disease with (acute) lower respiratory infection; E11.65 Type 2 diabetes mellitus with hyperglycemia; Z79.4 Long term (current) use of insulin; F17.210 Nicotine dependence, cigarettes, uncomplicated; I10 Essential (primary) hypertension; R77.8 Other specified abnormalities of plasma proteins; I49.3 Ventricular premature depolarization; R13.12 Dysphagia, oropharyngeal phase
CPT/HCPCS: 31720; 36415; 36600; 71045; 71275; 74230; 80048; 80053; 80202; 82550; 82803; 82962; 83036; 83735; 83880; 84100; 84132; 84478; 85025; 85379; 87070; 87205; 87426; 87633; 87641; 92526; 92610; 92611; 93005; 93306; 94002; 94003; 94640; 94660; 97110; 97116; 97161; 97162; 97166; 97530; 97535; 97802; 99251; 99406; J2185; J7030; J7040; J7050; J7120; Q9957; Q9967; A4216; C8929; G0463; J1940; J3010

== ENCOUNTER → 2021-07-13 | Outpatient (CLI) | payer MEDICARE, SELFPAY ==
--- NOTE | 2021-07-13 11:07 | RAD_ITS ---
INDICATION: LOWER LEG EDEMA EXAMINATION/TECHNIQUE: X-RAY - XR Chest 2 Views COMPARISON: 06/16/2021 FINDINGS: Support devices: None. Improved aeration of lungs when compared to 06/16/2021 with no focal consolidations, effusions, or sizable pneumothorax. Heart size is stable. Bones and soft tissues are unchanged. RAD/Chest PA and Lateral IMPRESSION: Improved aeration of the lungs when compared to 06/16/2021 with no new or acute findings. Electronically Signed: Gabino Cortes, at 14:24 EDT ,
--- NOTE | 2021-07-13 11:08 | EKG12_ITS ---
Test Reason : LOWER LEG EDEMA Blood Pressure : / mmHG Vent. Rate : 109 BPM Atrial Rate : 109 BPM P-R Int : 158 ms QRS Dur : 082 ms QT Int : 330 ms P-R-T Axes : 090 024 058 degrees QTc Int : 444 ms Sinus tachycardia with Premature atrial complexes Otherwise normal ECG Confirmed by SOO LOPEZ, JUAN M ([id number]), features editor BERT DAVIS ([id number]) on 07/14/2021 8:21:46 AM Referred By: BLAKE DOBSON Confirmed By:JUAN M VANN MD
[2021-07-13 11:18] LABS: Hematocrit 42.3 % (40-54); Hemoglobin 13.4 g/dL (13.0-16.5); Mean Corp Hgb Conc 31.7 g/dL (32-36); Mean Corpuscular Hgb 30.1 pg (27.0-32.0); Mean Corpuscular Volume 95.1 fL (80-94); Mean Platelet Vol. 10.6 fl (6.2-12.0); Platelet Count 142 K/mm3 (150-450); RBC Distribution Width CV 15.3 % (11.6-14.6); RBC Distribution Width SD 52.8 fl (35.1-43.9); Red Blood Count 4.45 M/mm3 (4.6-6.2); White Blood Count 7.9 K/mm3 (4.4-11.0)
[2021-07-13 11:46] LABS: ALB/GLOB Ratio 1.1 RATIO (0.9-2.4); AST(SGOT) 15 U/L (15-37); Alanine Aminotransfer ALT/SGPT 25 U/L (16-61); Albumin, Serum 3.3 g/dL (3.2-5.0); Alkaline Phosphatase 60 U/L (45-117); Anion Gap 5 (5-15); BUN 24 mg/dL (7-18); BUN/Creat Ratio 20.3 RATIO (10-20); Calcium,Total 8.7 mg/dL (8.5-10.1); Chloride 101 mmol/L (98-107); Creatinine, Serum 1.18 mg/dL (0.70-1.30); EST Glomerular Filtration Rate 65 mL/min (>60); Est Glom Filt Rate - Afr Amer 79 mL/min (>60); Glucose 117 mg/dL (74-106); Potassium 3.6 mmol/L (3.5-5.1); Protein, Total 6.3 g/dL (6.4-8.2); Sodium Level 142 mmol/L (136-145); Troponin-I HS 22 pg/mL (3.0-78.0)
[2021-07-13 14:44] LABS: BNP,B-Type NATRIURETIC PEPTIDE 59.3 pg/mL (0-100)
== END | disposition home or self-care (01) ==
LOC: PSN 10:45
PROVIDERS: PCP Nurse Practitioner Family; Visit Provider Nurse Practitioner Family
DX: R60.0 Localized edema (principal); J44.9 Chronic obstructive pulmonary disease, unspecified; I10 Essential (primary) hypertension; R00.0 Tachycardia, unspecified
CPT/HCPCS: 36415; 71046; 80053; 83880; 84484; 85027; 93005

== ENCOUNTER → 2021-08-01 | Outpatient (CLI) | payer MEDICARE, SELFPAY ==
--- NOTE | 2021-08-02 13:32 | PFT_ITS ---
INTRODUCTION: The patient is a 65-year-old male that presents for pulmonary function studies secondary to a diagnosis of low obstructive sleep apnea. Respiratory therapy reported good patient effort. Bronchodilators were used during testing. INTERPRETATION: Forced expiration spirometry demonstrates the presence of a very severe large airways obstructive ventilatory defect. There was no significant response to aerosolized bronchodilators. Spirograms are of good quality but do not plateau indicating slow emptying of the lungs. Body plus tomography was performed and r evealed an elevated TLC and RV, indicative of underlying hyperinflation and air trapping. Diffusing capacity by single breath CO is reduced at 49% of predicted. IMPRESSION: Irreversible very severe large airways obstructive ventilatory defect with associated hyperinflation, air trapping and symmetric reduction in diffusing capacity.
== END | disposition home or self-care (01) ==
LOC: PSN 13:03
PROVIDERS: PCP Nurse Practitioner Family; Visit Provider Nurse Practitioner Acute Care
DX: G47.33 Obstructive sleep apnea (adult) (pediatric) (principal)
CPT/HCPCS: 94060; 94726; 94729

== ENCOUNTER → 2021-08-16 | Outpatient (CLI) | payer MEDICARE, SELFPAY ==
--- NOTE | 2021-08-16 07:52 | ECHOD_ITS ---
Reason For Study: Edema Procedure This was a 2D Doppler, Color Flow transthoracic echocardiogram. The study was technically difficult. Exam performed in department. Left Ventricle Normal LV size. Apical false tendon noted. Left ventricular systolic function is normal. The estimated ejection fraction is 65 %. No evidence for diastolic dysfunction. No regional wall motion abnormalities noted. Right Ventricle Normal RV size. Normal systolic function. Atria The left atrium is mildly enlarged. Normal right atrium. No doppler evidence for ASD. Mitral Valve There is no mitral annular calcification. Normal mitral valve. Trivial mitral valve insufficiency. Tricuspid Valve Normal tricuspid valve. Mild tricuspid valve insufficiency. Right ventricular systolic pressure estimated to be 41 mmHg. Aortic Valve Trisinus/trileaflet aortic valve. Mild focal aortic valve thickening. Pulmonic Valve The pulmonic valve is not well visualized. Great Vessels The aortic root is not well visualized. Pericardium/Pleural No pericardial effusion. MMode/2D Measurements & Calculations LVIDd: 5.5 cm IVSd: 0.94 cm LA dimension: 3.9 cm LVIDs: 3.8 cm LVPWd: 1.0 cm RVDd: 3.5 cm FS: 31.8 % LAV(MOD-bp): 54.7 ml LA A4 area: 20.2 cm2 RA A4 area: 16.7 cm2 LAV(MOD-bp) Indexed: 29.3 ml/m2 LAV(MOD-sp2): 49.9 ml LAV(MOD-sp4): 59.4 ml Time Measurements MV dec time: 0.27 sec Doppler Measurements & Calculations MV E max dimitri: 85.2 cm/sec Lat Peak E' Dimitri: 11.4 cm/sec Med Peak E' Dimitri: 7.7 cm/sec MV A max dimitri: 101.5 cm/sec E/E' lat: 7.5 E/E' med: 11.1 MV E/A: 0.84 MV V2 max: 99.2 cm/sec MV P1/2t max dimitri: 84.6 cm/sec Ao V2 max: 115.4 cm/sec MV max P.9 mmHg MV P1/2t: 127.4 msec Ao max P.4 mmHg MV V2 mean: 55.1 cm/sec MV dec slope: 194.4 cm/sec2 MV mean P.4 mmHg MVA(P1/2t): 1.7 cm2 MV V2 VTI: 33.1 cm LV V1 max: 103.9 cm/sec PA V2 max: 107.9 cm/sec TR max dimitri: 309.8 cm/sec LV V1 max P.3 mmHg TR max P.4 mmHg ECHO/Echo Complete Interpretation Summary The study was technically difficult. Left ventricular systolic function is normal. The estimated ejection fraction is 65 %. Apical false tendon noted. The left atrium is mildly enlarged. Trivial mitral valve insufficiency. Mild tricuspid valve insufficiency. Mild focal aortic valve thickening. Right ventricular systolic pressure estimated to be 41 mmHg c/w pulmonary hyper tension. No evidence for diastolic dysfunction. Ordering Physician: Ruby Jacinto Referring Physician: Ruby Jacinto Performed By: Noe Bustillos RCS
== END | disposition home or self-care (01) ==
PROVIDERS: PCP Nurse Practitioner Family; Referring Provider Nurse Practitioner Family; Visit Provider Nurse Practitioner Family
DX: R60.0 Localized edema (principal); I49.9 Cardiac arrhythmia, unspecified; I10 Essential (primary) hypertension
CPT/HCPCS: 93306

== ENCOUNTER → 2021-08-31 | Outpatient (CLI) | payer MEDICARE, SELFPAY | END | disposition home or self-care (01) | LOC: SL 20:22 | PROVIDERS: PCP Nurse Practitioner Family; Visit Provider Nurse Practitioner Acute Care | DX: G47.33 Obstructive sleep apnea (adult) (pediatric) (principal) | CPT/HCPCS: 95810 ==

== ENCOUNTER 2021-10-17 08:00 | Outpatient (RCR) | payer MEDICARE, SELFPAY ==
--- NOTE | 2021-06-26 12:38 | HP.PTEVAL_ITS ---
Patient's Visit Information JEREMIAH METCALF Jr. is a 65 year old M referred to Physical Therapy by YAEL Mcdaniel with a diagnosis of Debilitation. Date of Evaluation: 06/26/21 Physical Therapist: Nestor Hernandez, PT, ATC - Visit Plan Frequency: 2-3x /Week Duration: 4-6 Weeks Plan: B LE strengthening, core stab ex's, gait training, stair negotiation, nustep, and HEP - Subjective Pt reports he just got out of the hospital for Pneumonia. Pt reports he was in the hospital for 10 days, having to be intubated for 6 of them. Pt reports he has been home for a week now. Pt reports he feels really weak. Pt reports he was able to get around pretty easy prior to having pneumonia. Pt notes he was limited some with his walking due to LBP. Pt reports he was able to ambulate without a cane prior to becoming ill. Pt is on 2 LO2 secondary to his COPD. Pt reports he had no PT in the hospital. Pt is retired at this time. Pt reports he is limited with all ADL's and IADL's secondary to weakness and fatigue. Pt has stairs at home that he has to negotiate daily. He ascends and descends them one step at a time. Pt reports he is able to feel his feet at this time. Pt is not currently in pain. - Objective Neuro: B LE sensation is WNL to light touch. B patellar reflex= 2/3. MMT: B LE's are grossly 4-/5 throughout. ROM: B LE's are WFL when compared bilaterally. transfers: Pt is able to sit to stand without difficulty. Stairs: Pt can negotiate but must use handrail and negotiate one step at a time. Gait: Pt is able to ambulate 60 feet until needing to rest secondary to weakness. - Balance/Special Test Scores Lower Extremity Functional Score: 20 - Goals Goal 1:: Increase B LE strength x 1 grade to aid with stair negotiation Goal Time Frame: 4-6 Weeks Goal 2:: Pt will ambulate greater that 600 feet to aid with community ambulation Goal Time Frame: 4-6 Weeks Goal 3:: Pt will be able to negotiate 10 stairs reciprocally to aid with safety at home while negotiating stairs Goal Time Frame: 4-6 Weeks Goal 4:: I with HEP Goal Time Frame: 4-6 Weeks - Rehabilitation Potential Physical Therapy Diagnosis: Pt has LE weakness, limited gait ability, and difficulty with stair negotiation secondary to debilitation Rehabilitation Potential: Good - Anticipated Interventions Patient/Client Instruction: Educate patient on: Condition, Plan of Care For the Purpose of:: To improve self management Therapeutic Exercise to Include: Strength training, Endurance training, Balance training, Gait and locomotor training, Dynamic Lumbar Stabilization For the Purpose of:: To improve muscle performance and motor function, To improve ability to perform ADL's, To improve ability of physical actions for home/community/work/leisure Thank you for the opportunity to evaluate your patient. For Medicare and Medicare HMO plans, please review the plan of care and approve it. It will need to be FAXED BACK to us at [phone] for Medicare purposes. For Medicare only, by signing this I certify the plan of care. Please let me know if there are questions or concerns regarding this plan of care. Physician Signature: __Date:
--- NOTE | 2021-06-26 16:54 | ST ---
[facility] Speech Pathology [address] [place] [address] Modified Barium Swallow Study MR#: [id number] Acct: [id number] Name: JEREMIAH GIRARD Jr. Rep #: [id number] : 1955 65 From: Vicki Navas M.A., [facility] Modified Barium Swallow - Patient Information Study Date: 06/16/21 Study Time: 13:00 Direct Billable Minutes: 90 Total Minutes procedure & reportin Diagnosis: Pneumonia (J18.9) Referring Physician: Hang Nunes Reason for Referral: Objectively assess swallow function, risk for aspiration, and determine recommendations for least restrictive diet textures and compensatory strategies to improve safety of swallow. Medical History: Jeremiah Girard is a 65 M who presented to [facility] on 06/09/2021 from an outside hospital with acute hypoxic and hypercapnic respiratory failure. He has a history of COPD. The patient was intubated on arrival and could not provide any history. He arrived to the outside hospital short of breath. He was 60% on room air at the outside hospital and required intubation. He had to be transferred to [facility] secondary to the outside hospital not having critical care. Chest x-ray did demonstrate a possible right lower lobe pneumonia. He received nutrition via NG tube while intubated. He is being managed for respiratory failure, COPD exacerbation, and pneumonia amongst other comorbidities. The patient was extubated 06/15/2021. He failed RN dysphagia screen due to anterior loss of sips of water. He was referred for speech consult to assess concern for dysphagia and aspiration. BSE completed 06/16/2021 and pt was recommended NPO with sips and chips with plans for MBS study once pt weaned to nasal cannula from Airvo. The patient had worsening infiltrate on chest x-ray per Dr. Hicks's progress report from 06/16/2021. SCREEDMAN concerned for silent aspiration risk s/p extubation, hx of COPD, continued infiltrate per chest X-ray. Current Diet Ordered: NPO with sips and chips Dentition: Missing Teeth Mental Status: Impaired - Repetition to follow commands throughout the study Respiratory Status: Oxygenating on 4L/M nasal cannula - 10L/M via nasal cannula - Penetration-Aspiration Scale Penetration-Aspiration Scale: OBJECTIVE ASSESSMENT OF SWALLOW FUNCTION (QUANTITATIVE ? PER TRIAL): PENETRATION / ASPIRATION SCALE (VAUGHAN): 1 = does not enter airway 2 = enters airway/above vocal folds/ejected 3 = enters airway/above vocal folds/not ejected 4 = enters airway/contacts vocal folds/ejected 5 = enters airway/contacts vocal folds/not ejected 6 = enters airway/below vocal folds/ejected 7 = enters airway/below vocal folds/not ejected despite effort 8 = enters airway/below vocal folds/no effort - Penetration-Aspiration Scale Score Thin Liquid via teaspoon Result: 3= enters airways/above vocal folds/not ejected Thin Liquid via teaspoon Trial 2 Result: 1= does not enter airway Thin Liquid via small single sip from cup Result: 3= enters airways/above vocal folds/not ejected Comment: When self feeding, pt utilized partial chin tuck. Thin Liquid via small single sip from cup Trial 2 Result: 1= does not enter airway Inola Thick Liquid via small single sip from cup Result: 1= does not enter airway Honey Thick Liquid via small single sip from cup Result: 1= does not enter airway Pudding via teaspoon with esophageal screen Result: 1= does not enter airway 1/2 Litzy Doone Cookie Result: 1= does not enter airway Thin Liquid via single sip from straw Result: 2= enter airway/above vocal folds/ejected Thin Liquid via sequential sips from straw Result: 3= enters airways/above vocal folds/not ejected Thin Liquid via small single sip from cup Trial 3 Result: 2= enter airway/above vocal folds/ejected Thin Liquid via small single sip from cup Effortful swallow Result: 1= does not enter airway Inola Thick Liquid via small single sip from cup Trial 2 Result: 1= does not enter airway - Oral Phase Labial Seal: Escape beyond interlabial space; no extension beyond lisa border Tongue Control During Bolus Hold: Posterior escape of less than half of bolus Bolus Preparation/Mastication: Disorganized chewing/mashing with solid pieces of bolus unchewed Bolus Transport/Lingual Motion: Repetitive/disorganized tongue motion Oral Residue: Majority of bolus remaining - Pharyngeal Phase Initiation of Pharyngeal Swallow: Bolus head in pyriforms Soft Palate Elevation: Trace column of contrast/air between soft palate and pharyngeal wall Anterior Hyoid Excursion: Partial anterior movement Epiglottic Movement: Partial inversion Laryngeal Vestibule Closure at Height of Swallow: Incomplete; narrow column of air/contrast in laryngeal vestibule Pharyngeal Stripping Wave: Present - complete Pharyngoesophageal Segment Opening: Parital distension and partial duration; parital obstruction of flow Tongue Base Retraction: Wide column of contrast between tongue base & post. pharyngeal wall Pharyngeal Residue: Collection of residue within or on pharyngeal structures - Esophageal Phase Esophageal Clearance: Esophageal retention - Treatment Strategies Effects of treatment strategies attemped:: Effortful swallow = Effective. Decreased rate = Effective. - Diagnosis/Impression Diagnosis: Mild-moderate oropharyngeal phase dysphagia (R13.12) Impression: The oral phase is marked by decreased mastication abilities. The patient had prolonged and disorganized mastication. He presented with piecemeal deglutition to clear cookie bolus - majority of cookie remained in oral cavity after the initial swallow. He has decreased bolus control with premature posterior loss of thin liquid boluses to the pyriforms prior to swallow onset. The pharyngeal phase is marked by decreased airway closure and mild-moderate pharyngeal residue after the swallow. The patient has decreased anterior hyoid excursion and laryngeal elevation with resulting decreased epiglottic inversion. He also had decreased TB retraction and UES opening with resulting residue in the vallecula and pyriforms, which worsened with thicker viscosities. The patient demonstrated laryngeal penetration above the vocal folds in 5/8 thin liquid trials. The penetrated contrast did not always reliably eject from the larynx. The patient is at increased risk for post prandial aspiration of contrast remaining in the laryngeal vestibule after the swallow; however, no aspiration observed during the study. He presented with esophageal retention of portion of pudding trial in upper esophagus. - Recommendations Diet: Inola-thick Liquids - Minced and Moist (IDDSI Level 5) Textures Compensatory Strategies: Small Bites, Small Sips, Slow Rate, Alternate bites/solids and sips/liquids, Sitting upright, Remain sitting upright for 30 minutes after PO intake Supervision: 1:1 Close Supervision Recommend Repeat Modified Barium Swallow: TBD Need for Skilled Speech Therapy Services: Yes Comment: Will recommend the patient for continued dysphagia therapy to address deficits in oropharyngeal swallow function. Would consider the patient for oropharyngeal strengthening to improve lingual coordination, hyolaryngeal elevation/excursion, tongue base retraction, and duration of UES opening (e.g. Frankie Fariasako, effortful swallow, tongue retraction, lingual coordination exercises). The patient would benefit from thorough education regarding diet recommendations and recommended compensatory strategies. Pt ok to trial thin liquids with SCREEDMAN, one sip at a time, considering use of effortful swallows. If tolerance with trials of thin liquids and stable respiratory status, pt ok to upgrade to thin liquids at bedside if deemed clinically appropriate by SCREEDMAN. Would consider the patient for implementation of FFWP at next level of care if continuing with thickened liquids. Education Completed: 1. Described result of evaluation., 7. Pt requires further education on strategies & risks. - Status Active ST Patient: Active - Contact Information [facility] Speech Therapy:: Vicki Navas M.A. [facility] Speech-Language Pathologist [address] [address] [email or web address] [phone] 06/16/21 14:59 06/16/21 1521 <Electronically signed by Vicki Navas M.A. CCC-SCREEDMAN> Date/Time Vicki Navas M.A. CCC-SCREEDMAN
--- NOTE | 2021-06-26 17:01 | HP.SP.EV_ITS ---
History - History Date of Eval: 06/26/21 Previous speech therapy: Yes Results: MBSS on 06/16/21 - see below; Pt also participating in speech therapy on acute care targeting dysphagia and diet tolerance. Other Relevant Medical History/Diagnoses/Surgery: Jeremiah Girard is a 65 M who presents to [facility] for an outpatient speech therapy dysphagia evaluation s/p acute hypoxic and hypercapnic respiratory failure during his hospital admission on 06/09/21. Pt is accompanied today by . Jeremiah served as main historian. Pt on 2L of O2. Pt has a history of COPD. The patient was intubated on arrival to the hospital. He arrived to an outside hospital SOB. He was 60% on room air at the outside hospital and required intubation. He was transferred to [facility] 03/22 to the outside hospital not having critical care. Chest x-ray revealed a possible right lower lobe pneumonia. He received nutrition via NG tube while intubated. Jeremiah was extubated 06/15/2021. He failed RN dysphagia screen due to anterior loss of sips of water. BSE completed 06/16/2021 and pt was recommended NPO with sips and chips with plans for MBS study. SEE RESULTS OF MBSS BELOW. The patient had worsening infiltrate on chest x-ray per Dr. Hicks's progress report from 06/16/2021. Smoking Status: Unknown if ever smoked Hx Tobacco Use: Yes - Pain Is pain an issue with your current prescribed condition?: No Patient Allergies - Allergies Allergies No Known Drug Allergies Allergy (Verified 06/09/21 19:32) Other Subjective Dysphagia - Symptoms Reported Symptoms/Problems with: Difficulty Swallowing Solids, Difficulty Swallowing Liquids, Hx of Pneumonia - Current Diet Solids Current Diet: Regular Other: No modifications - continues to consume mixed textures as well. - Current Diet Liquids Current Liquids: [place] Thick Other: only the prethickened - does not always thicken with meals Yee free water Protocol: No Objective Dysphagia - Swallowing Impairment Contributing Factors to Swallowing Impairment: Reduced Oral Strength/Co ordination/Sensation, Mastication Inefficiency, Reduced Laryngeal Excursion Other: Based on MBSS from 06/16/21 - unable to administer BSE d/t time constraints - Recommendations Modified Barium Swallow/Cookie Swallow Recommended: Yes Swallowing Treatment: Yes - Diet Texture Recommendations Solids: Minced & Moist (Level 5, Mechanical Soft) Liquids: Mildly thick (Level 2, [place]) Yee free water Protocol: Yes Other: Will consider upgrading to thin liquids at bedside prior to completion of follow up MBSS in 6-8 weeks based on SPO2 levels and other overt s/sx of penetration/aspiration. - Safety Saftey Precautions/Swallowing Recommendations (Check all that Apply): Reduce Distractions, Upright Position at Least 30 Minutes After Meals, Small Sips & Bites when Eating, Multiple Swallows, Alternate Liquids & Solids - Results Swallowing Within Normal Limits: No Swallowing Diagnosis: Oropharyngeal Phase Dysphagia (R13.12) Severity: Moderate Modified Barium Results Hx MBS Report Entered: Yes MBS Results (from prior exam): 06/26/21 16:54 Speech Therapy by Farideh Lockwood [facility] [address] [place] [address] Modified Barium Swallow Study MR#: [id number] Acct: [id number] Name: JEREMIAH GIRARD Jr. Rep #:[id number] : [id number] 65 From: Vciki Matson, [facility]-[employer]AST[employer] FABRICATOR TRIMMER Modified Barium Swallow - Patient Information Study Date: 06/16/21 Study Time: 13:00 Direct Billable Minutes: 90 Total Minutes procedure & reportin Diagnosis: Pneumonia (J18.9) Referring Physician: Hang Nunes Reason for Referral: Objectively assess swallow function, risk for aspiration, and determine recommendations for least restrictive diet textures and compensatory strategies to improve safety of swallow. Medical History: Jeremiah Girard is a 65 M who presented to [facility] on 06/09/2021 from an outside hospital with acute hypoxic and hypercapnic respiratory failure. He has a history of COPD. The patient was intubated on arrival and could not provide any history. He arrived to the outside hospital short of breath. He was 60% on room air at the outside hospital and required intubation. He had to be transferred to [facility] secondary to the outside hospital not having critical care. Chest x-ray did demonstrate a possible right lower lobe pneumonia. He received nutrition via NG tube while intubated. He is being managed for respiratory failure, COPD exacerbation, and pneumonia amongst other comorbidities. The patient was extubated 06/15/2021. He failed RN dysphagia screen due to anterior loss of sips of water. He was referred for speech consult to assess concern for dysphagia and aspiration. BSE completed 06/16/2021 and pt was recommended NPO with sips and chips with plans for MBS study once pt weaned to nasal cannula from Airvo. The patient had worsening infiltrate on chest x-ray per Dr. Hicks's progress report from 06/16/2021. P[employer]S FABRICATOR TRIMMER concerned for silent aspiration risk s/p extubation, hx of COPD, continued infiltrate per chest X-ray. Current Diet Ordered: NPO with sips and chips Dentition: Missing Teeth Mental Status: Impaired - Repetition to follow commands throughout the study Respiratory Status: Oxygenating on 4L/M nasal cannula - 10L/M via nasal cannula - Penetration-Aspiration Scale Penetration-Aspiration Scale: OBJECTIVE ASSESSMENT OF SWALLOW FUNCTION (QUANTITATIVE ? PER TRIAL): PENETRATION / ASPIRATION SCALE (VAUGHAN): 1 = does not enter airway 2 = enters airway/above vocal folds/ejected 3 = enters airway/above vocal folds/not ejected 4 = enters airway/contacts vocal folds/ejected 5 = enters airway/contacts vocal folds/not ejected 6 = enters airway/below vocal folds/ejected 7 = enters airway/below vocal folds/not ejected despite effort 8 = enters airway/below vocal folds/no effort - Penetration-Aspiration Scale Score Thin Liquid via teaspoon Result: 3= enters airways/above vocal folds/not ejected Thin Liquid via teaspoon Trial 2 Result: 1= does not enter airway Thin Liquid via small single sip from cup Result: 3= enters airways/above vocal folds/not ejected Comment: When self feeding, pt utilized partial chin tuck. Thin Liquid via small single sip from cup Trial 2 Result: 1= does not enter airway [place] Thick Liquid via small single sip from cup Result: 1= does not enter airway Honey Thick Liquid via small single sip from cup Result: 1= does not enter airway Pudding via teaspoon with esophageal screen Result: 1= does not enter airway 1/2 Litzy Doone Cookie Result: 1= does not enter airway Thin Liquid via single sip from straw Result: 2= enter airway/above vocal folds/ejected Thin Liquid via sequential sips from straw Result: 3= enters airways/above vocal folds/not ejected Thin Liquid via small single sip from cup Trial 3 Result: 2= enter airway/above vocal folds/ejected Thin Liquid via small single sip from cup Effortful swallow Result: 1= does not enter airway [place] Thick Liquid via small single sip from cup Trial 2 Result: 1= does not enter airway - Oral Phase Labial Seal: Escape beyond interlabial space; no extension beyond lisa border Tongue Control During Bolus Hold: Posterior escape of less than half of bolus Bolus Preparation/Mastication: Disorganized chewing/mashing with solid pieces of bolus unchewed Bolus Transport/Lingual Motion: Repetitive/disorganized tongue motion Oral Residue: Majority of bolus remaining - Pharyngeal Phase Initiation of Pharyngeal Swallow: Bolus head in pyriforms Soft Palate Elevation: Trace column of contrast/air between soft palate and pharyngeal wall Anterior Hyoid Excursion: Partial anterior movement Epiglottic Movement: Partial inversion Laryngeal Vestibule Closure at Height of Swallow: Incomplete; narrow column of air/contrast in laryngeal vestibule Pharyngeal Stripping Wave: Present - complete Pharyngoesophageal Segment Opening: Parital distension and partial duration; parital obstruction of flow Tongue Base Retraction: Wide column of contrast between tongue base & post. pharyngeal wall Pharyngeal Residue: Collection of residue within or on pharyngeal structures - Esophageal Phase Esophageal Clearance: Esophageal retention - Treatment Strategies Effects of treatment strategies attemped:: Effortful swallow = Effective. Decreased rate = Effective. - Diagnosis/Impression Diagnosis: Mild-moderate oropharyngeal phase dysphagia (R13.12) Impression: The oral phase is marked by decreased mastication abilities. The patient had prolonged and disorganized mastication. He presented with piecemeal deglutition to clear cookie bolus - majority of cookie remained in oral cavity after the i nitial swallow. He has decreased bolus control with premature posterior loss of thin liquid boluses to the pyriforms prior to swallow onset. The pharyngeal phase is marked by decreased airway closure and mild-moderate pharyngeal residue after the swallow. The patient has decreased anterior hyoid excursion and laryngeal elevation with resulting decreased epiglottic inversion. He also had decreased TB retraction and UES opening with resulting residue in the vallecula and pyriforms, which worsened with thicker viscosities. The patient demonstrated laryngeal penetration above the vocal folds in 5/8 thin liquid trials. The penetrated contrast did not always reliably eject from the larynx. The patient is at increased risk for post prandial aspiration of contrast remaining in the laryngeal vestibule after the swallow; however, no aspiration observed during the study. He presented with esophageal retention of portion of pudding trial in upper esophagus. - Recommendations Diet: [place]-thick Liquids - Minced and Moist (IDDSI Level 5) Textures Compensatory Strategies: Small Bites, Small Sips, Slow Rate, Alternate bites/solids and sips/liquids, Sitting upright, Remain sitting upright for 30 minutes after PO intake Supervision: 1:1 Close Supervision Recommend Repeat Modified Barium Swallow: TBD Need for Skilled Speech Therapy Services: Yes Comment: Will recommend the patient for continued dysphagia therapy to address deficits in oropharyngeal swallow function. Would consider the patient for oropharyngeal strengthening to improve lingual coordination, hyolaryngeal elevation/excursion, tongue base retraction, and duration of UES opening (e.g. Dinora, Katelin, effortful swallow, tongue retraction, lingual coordination exercises). The patient would benefit from thorough education regarding diet recommendations and recommended compensatory strategies. Pt ok to trial thin liquids with PLASTIC [employer]S FABRICATOR TRIMMER, one sip at a time, considering use of effortful swallows. If tolerance with trials of thin liquids and stable respiratory status, pt ok to upgrade to thin liquids at bedside if deemed clinically appropriate by PLASTIC PARTS FABRICATOR TRIMMER. Would consider the patient for implementation of FFWP at next level of care if continuing with thickened liquids. Education Completed: 1. Described result of evaluation., 7. Pt requires further education on strategies & risks. - Status Active ST Patient: Active - Contact Information [facility]:: Vicki Navas M.A. CCC-[employer]AST[employer]S FABRICATOR TRIMMER Speech-Language Pathologist [address] [address] [email or web address] [phone] 06/16/21 14:59 06/16/21 1521 <Electronically signed by Vicki Navas M.A., CCC-[employer]AST[employer]S FABRICATOR TRIMMER> Date/Time Vicki Navas M.A., CCC-[employer]ASTIC [employer]S FABRICATOR TRIMMER Initialized on 06/26/21 16:54 - END OF NOTE Swallowing Performance Scale - Swallowing Performance Scale Swallowing Performance Scale Result: 4 Mild to Moderate NQOL Plan - Plan Plan: Will rx Pt for skilled outpatient tx to address deficits in mild-moderate oropharyngeal dysphagia. Pt would benefit from training and education re: process of thickening liquids, diet tolerance and upgrade checks, FFWP, and swallowing exercises to aid in oropharyngeal strengthening. Without skilled intervention, Pt is at risk for consuming a restrictive diet putting him at risk for aspiration pneumonia and atrophy of laryngeal musculature. - Recommendations MBS: Yes Treatment Warranted: Yes Treatment Warranted: Dysphagia - Progress Prognosis: Excellent - Frequency Frequency: 1x/Week Duration: 2 Months - Goal #1-5 Goal #1: Jeremiah will consume upgraded PO trials of thin liquids via cup sip and straw with no overt s/sx of penetration/aspiration with greater than 90% of PO intake. Goal #2: Jeremiah will utilize swallowing strategies (Small Bites, Small Sips, Slow Rate, Alternate bites/solids and sips/liquids, Sitting upright, Remain sitting upright for 30 minutes after PO intake) and tolerate least restrictive diet with no overt s/s of aspiration/penetration to aid in safe consumption of solid/liquids independently. Goal #3: Jeremiah will complete oropharyngeal exercises for 10 reps, 3x/day independently to improve oral motor control, tongue base retraction, PES opening/distention, and hyolaryngeal elevation and excursion. Goal #4: Jeremiah will participate in Modified Barium Swallow (MBS) study to objectively assess Pt's oropharyngeal swallow function to determine the least restrictive means of nutrition and progress from participating in pharyngeal strengthening exercises. Education - Patient has Indicated that the Following Identified Educational Needs: None The Patient has indicated that they have no educational or learning abilities that may effect their care.: Yes - Patient Instruction Patient Education: Diagnosis, Treatment Plan, Goals, Safety Precautions, Diet Level, Home Exercise Program Other Education: Direct education provided re: use of Minced and Moist solids d/t poor bolus control, posterior spillage, and lack of upper dentition. Also discussed avoiding mixed textures such as vegetable soup (which Pt consumed last evening) d/t 1.) presence of thin liquids and 2.) coordinating the thin liquids with the solids. Provided IDDSI handouts on Pt?s current diet recommendations. Also discussed utilizing FFWP between meals and encouraged purchasing thickener so that Pt can thicken other drinks to have with meal besides the pre-thickened water. Person Taught: Patient, Family Teaching Method: Discussion, Demonstration, Handout Response to teaching: Return demonstration, Verbalize understanding, Reinforcement needed
--- NOTE | 2021-08-02 09:38 | HP.SP.DC ---
ST Discharge Summary - Discharged: Discharge: JEREMIAH METCALF is a 65 year old male who was seen for initial speech therapy dysphagia evaluation at [facility] on 06/26/21 secondary to dx of pneumonia (J18.9). Pt attended initial evaluation and 2 follow up appointments to discuss oropharyngeal and oral motor exercises to complete as a home program. Pt recently upgraded to thin liquids from the previously recommended nectar/mildly thick liquids from his 06/16/21 MBSS. Pt to continue with the exercises at home to improve overall function of his swallow. Pt is being d/c from OP speech therapy on this date with instruction to contact this CLINICAL LABORATORY MANAGER should there be a change in medical status or questions arise. Thank you for allowing me to participate the care of your Pt. Will reevaluate at Pt?s request following script from physician.
--- NOTE | 2021-09-05 09:04 | HP.PTREVAL ---
Ruby Jacinto, KENROY-C, It has been my pleasure to treat JEREMIAH METCALF Jr. over the last 7 visits for Debilitation. Please see the progress note below for an update on the physical therapy plan of care! Subjective: Pt reports his balance is improving at this time. He still feels unsteady with gait. Objective/Function: B LE strength is 4-4+/5 throughout. Pt is able to ambulate 340' until needing to rest secondary to SOB. Pt is able to negotiate 1 flight of stairs reciprocally using one hand rail. FGA: 22/30- increased risk of falling at this time. Pt is progressing well toward Rx goals, but still shows a need for continued strengthening and balance activity Plan Plan: B LE strengthening, core stab ex's, gait training, stair negotiation, nustep, and HEP Balance/Gait/Functional tests - Balance/Special Test Scores Functional Gait Assessment Score: 22 % Disability: 26.6700 Lower Extremity Functional Score: 20 Goals Goal 1:: Increase B LE strength x 1 grade to aid with stair negotiation Goal Time Frame: 4-6 Weeks Goal Progress: Progressing Goal 2:: Pt will ambulate greater that 600 feet to aid with community ambulation Goal Time Frame: 4-6 Weeks Goal Progress: Progressing Goal 3:: Pt will be able to negotiate 10 stairs reciprocally to aid with safety at home while negotiating stairs Goal Time Frame: 4-6 Weeks Goal Progress: Goal Met Goal 4:: I with HEP Goal Time Frame: 4-6 Weeks Goal Progress: Progressing Goal 5:: Increase FGA score x 3-5 points to aid with preventing future falls. Goal Time Frame: 4-6 Weeks Goal Progress: New goal Anticipated Interventions Patient/Client Instruction: Educate patient on: Condition, Plan of Care For the Purpose of:: To improve self management Therapeutic Exercise to Include: Strength training, Endurance training, Balance training, Gait and locomotor training, Dynamic Lumbar Stabilization For the Purpose of:: To improve muscle performance and motor function, To improve ability to perform ADL's, To improve ability of physical actions for home/community/work/leisure Please do not hesitate to contact me at [phone] by phone or if you have questions or concerns regarding this new plan of care! Sincerely, Nestor Hernandez, PT, ATC
== END 2021-10-17 19:00 | disposition home or self-care (01) ==
LOC: PT 08:00
PROVIDERS: PCP Nurse Practitioner Family; Referring Provider Internal Medicine; Visit Provider Nurse Practitioner Family
DX: R53.81 Other malaise (principal); J44.9 Chronic obstructive pulmonary disease, unspecified
CPT/HCPCS: 92526; 92610; 97110; 97161; 97164

== ENCOUNTER → 2022-06-02 | Outpatient (CLI) | payer MEDICARE, SELFPAY ==
--- NOTE | 2022-06-02 08:04 | CT_ITS ---
STUDY: LOW DOSE CT LUNG CANCER SCREENING REASON FOR EXAM: Male, 66 years old. Tobacco dependency RADIATION DOSAGE (If Supplied By Facility): CTDIvol = ( 3.02 ) mGy, DLP = ( 109.48 ) mGycm TECHNIQUE: No contrast was administered. Low dose technique was utilized (average mAS-38 and kVp 120). 1.25 mm axial source images with a slice interval of 1.25-mm were reconstructed in lung windows. 2.5 mm axial source images with a slice interval of 2.5-mm were reconstructed in lung windows. 5.0 mm axial source images with a slice interval of 5.0-mm were reconstructed in soft tissue windows. COMPARISON: CTA chest exam June 10, 2021. FINDINGS: Centrilobular and paraseptal emphysematous changes. Asymmetric fibrocalcific scarring in the right greater than left lung apices again seen. Elevation of the left hemidiaphragm with scarring at the costophrenic angle. Ovoid nodular opacity with spiculated margins in the right upper lobe laterally, not present on the prior examination measuring approximately 1.9 x 1 x 0.7 cm in size. There is an adjacent satellite nodule, also with spiculated margins more medially measuring approximately 9 x 6 mm. Mild ectasia of the ascending aorta, 3.6 cm diameter. Enlarged caliber main pulmonary arteries. Normal heart size. Mild coronary artery calcification. Small pericardial effusion. Trachea and esophagus are unremarkable. No mediastinal or hilar adenopathy identified. Normal thyroid gland. Lower cervical and upper thoracic laminectomy with anterior and posterior fusion hardware. Osteopenia. Degenerative changes of the thoracic spine. No acute osseous injury. No acute abnormality in the visualized upper abdomen. CT/Low Dose CT Lung Screening IMPRESSION: New, suspicious right upper lobe nodules. Recommend PET/CT imaging. Emphysema. Pulmonary arterial hypertension. LUNG-RADS 4. IMPORTANT NOTES FOR USE: ACR Lung-RADS Version 1.1 Assessment Categories Release Date: 2018 Category: Coded 0-4 bases on nodule(s) with highest degree of suspicion. Negative screen is defined as categories 1 and 2; a positive screen is defined as categories 3 and 4. Category 3 and 4A nodules that are unchanged on interval CT should be coded as category 2, and individuals returned to screening in 12 months. Category 4X: Category 3 or 4 nodules with additional imaging findings that increase the suspicion of lung cancer, such as spiculation, GGN that doubles in size in 1 year, enlarged lymph notes, etc. Category Modifiers: S (significant finding unrelated to lung cancer) Electronically Signed: Sergio Locke MD at 19:36 EDT ,
== END | disposition home or self-care (01) ==
LOC: CT 07:55
PROVIDERS: PCP Nurse Practitioner Family; Referring Provider Internal Medicine Critical Care Medicine; Visit Provider Internal Medicine Critical Care Medicine
DX: Z12.2 Encounter for screening for malignant neoplasm of respiratory organs (principal); F17.210 Nicotine dependence, cigarettes, uncomplicated
CPT/HCPCS: 71271

== ENCOUNTER → 2022-06-05 | Outpatient (CLI) | payer MEDICARE, SELFPAY ==
[2022-06-05 15:40] LABS: Absolute Lymphocyte Count 0.92 X10^3/uL (0.83-4.51); Absolute Neutrophil Count 8.3 X10^3/uL (2.0-7.7); Basophil# 0.05 X10^3/uL; Basophil% 0.5 % (0-1); Eosinophil# 0.32 X10^3/uL; Hemoglobin 13.3 g/dL (13.0-16.5); Lymphocyte # 0.92 X10^3/ul (0.83-4.51); Lymphocyte % 8.6 % (19-41); Mean Corp Hgb Conc 32.4 g/dL (32-36); Mean Corpuscular Hgb 30.6 pg (27.0-32.0); Mean Corpuscular Volume 94.5 fL (80-94); Monocyte# 1.03 X10^3/uL; Monocyte% 9.7 % (0-10); NRBC Flagged by Analyzer 0 % (0-5); Neutrophil # 8.29 X10^3/uL (2.7-7.7); Neutrophil % 77.7 % (47-70); Platelet Count 183 K/mm3 (150-450); RBC Distribution Width CV 14.4 % (11.6-14.6); RBC Distribution Width SD 49.8 fl (35.1-43.9); Red Blood Count 4.34 M/mm3 (4.6-6.2); White Blood Count 10.7 K/mm3 (4.4-11.0)
[2022-06-11 15:07] LABS: Aspirgillus flavus Negative (Neg:<1:1); Aspirgillus fumigatus Negative (Neg:<1:1); Aspirgillus niger Negative (Neg:<1:1); Cytoplasmic Ab (C-ANCA) <1:20 titer (Neg:<1:20); Immunoglobulin E 57 IU/mL (6-495); Perinuclear Ab (P-ANCA) <1:20 titer (Neg:<1:20)
== END | disposition home or self-care (01) ==
PROVIDERS: PCP Nurse Practitioner Family; Referring Provider Nurse Practitioner Acute Care; Visit Provider Nurse Practitioner Acute Care
DX: R05.9 Cough, unspecified (principal); R91.8 Other nonspecific abnormal finding of lung field; R06.02 Shortness of breath
CPT/HCPCS: 36415; 82785; 85025; 86256; 86606; 87070; 87205

== ENCOUNTER → 2022-08-31 | Outpatient (CLI) | payer MEDICARE, SELFPAY ==
--- NOTE | 2022-08-31 13:00 | CT_ITS ---
STUDY: CT CHEST WITHOUT CONTRAST REASON FOR EXAM: Male, 66 years old. New mass RADIATION DOSAGE (If Supplied By Facility): CTDIvol = ( 13.63 ) mGy, DLP = ( 483.72 ) mGycm TECHNIQUE: Transaxial imaging was performed without the administration of intravenous contrast material. Multiplanar coronal and sagittal images were reformatted. Individualized dose optimization techniques were used for this CT. COMPARISON: Comparison is made with prior study dated June 02, 2022. FINDINGS: CHEST Hyperinflation. Emphysematous changes worse in the right lung apex. The previously seen spiculated nodule in the lateral aspect of the right upper lobe has decreased in size. It presently measures 1.3 cm x 0.47 cm. The small stellate nodule seen medial to this abnormality has decreased slightly in size as well. There is evidence of a new 1.4 cm x 1.1 cm nodule in the left upper lobe as seen on axial image #47. This was not present on prior study. There is no demonstrated pleural abnormality. There are calcifications of the coronary arteries. Stable minimal thickening of the anterior pericardium. Normal mediastinum. Normal hilar regions. Normal unenhanced pulmonary arteries. There is atherosclerotic calcification of the aortic arch. There are multi-level degenerative changes of the thoracic spine. There is no demonstrated abnormality of the visualized upper abdomen. CT/Chest without Contrast IMPRESSION: Interval decrease in size of the previously seen nodules in the right upper lobe. There is a new 1.4 cm x 1.1 cm suspected nodule in the left upper lobe. Correlation with a PET scan is recommended. Electronically Signed: Jasbir Delgado MD at 14:05 EDT ,
== END | disposition home or self-care (01) ==
PROVIDERS: PCP Nurse Practitioner Family; Referring Provider Nurse Practitioner Acute Care; Visit Provider Nurse Practitioner Acute Care
DX: R91.8 Other nonspecific abnormal finding of lung field (principal)
CPT/HCPCS: 71250

== ENCOUNTER → 2022-09-11 | Outpatient (CLI) | payer MEDICARE, SELFPAY ==
--- NOTE | 2022-09-11 08:30 | PET_ITS ---
EXAMINATION: FDG PET/CT ? INDICATIONS: 66-year-old male with a history of pulmonary nodularity. ? COMPARISON EXAMINATION: CT of the chest report 08/31/2022 ? INDEX LESION SIZE SUV INTERPRETATION Right upper lung field, right upper lobe ? 1.3 max Quantitative criteria for viable neoplasm are not fulfilled ? TECHNIQUE: Following the intravenous administration of 14.37 mCi of F-18 deoxyglucose via the left antecubital fossa, multiplanar image acquisitions of the head, neck, chest, abdomen and pelvis to the level of the midthigh, obtained at one-hour post radiopharmaceutical administration contemporaneously interpreted with the current CT of the chest, abdomen and pelvis dated 09/11/2022 via coregistration reveal: ? SERUM GLUCOSE LEVEL:? 94 mg/dL? HEIGHT:?? 67 inches WEIGHT:?? 175 pounds ? FINDINGS: ? HEAD/NECK:? There is no evidence of abnormal increased glucose metabolism in the pharyngeal mucosal space, parapharyngeal space, oropharynx, bilateral-lateral and anterior neck, hypopharynx and distribution of the larynx. ? The visualized portion of the cerebral cortical-subcortical structures demonstrate symmetric and preserved glucose metabolism. ? CHEST:? Subtle increased radiopharmaceutical concentration is defined in the right upper posterolateral lung zone, right upper lobe generating a calculated standard uptake value of 1.3. Strict quantitative criteria for viable neoplasm are not fulfilled. ? CT of the chest demonstrates the following anatomic characteristics: Atherosclerotic calcification is defined in the thoracic aorta without evidence of dilatation, aneurysm formation. A small pericardial effusion-thickening is ametabolic. Right-left axillary soft tissue, subcentimeter in presentation, with fatty hilus formation is nonglucose avid. Subcentimeter mediastinal soft tissue reveals no evidence of increased FDG uptake. Paraseptal emphysematous changes are defined in the bilateral upper posterior lung zones. Calcified parenchymal densities noted in the bilateral apical lung dawn reveal no evidence of increased tracer uptake. There is eventration of the left hemidiaphragm. ? ABDOMEN/PELVIS:? Normal physiologic distribution of the radiopharmaceutical is identified in the hepatic (2.9) and splenic parenchyma, both renal units, urinary bladder, and visualized intestinal tract. Diffuse intestinal tract is identified in all four quadrants of the abdominal-pelvic mesentery. ? CT of the abdomen and pelvis is remarkable for the following: Calcification is defined in the pancreatic body. Atherosclerotic calcification is defined in the abdominal aorta without evidence of dilatation, aneurysm formation. Pelvic arterial calcification is observed. A exophytic density defined in the left kidney is nonglucose avid. Colonic diverticulosis is noted without evidence of diverticulitis. Calcification is noted in the left renal unit. Multifocal dystrophic calcification is noted within the prostate gland. Right-left inguinal soft tissue densities are ametabolic. ? SKELETAL:? Orthopedic hardware placement is defined in the lower cervical spine commensurate with spinal fusion operative intervention. Degenerative changes defined in the thoracic and lumbar spine demonstrate no evidence of increased glucose metabolism. ? PET/PET/CT Tumor Base -Thigh Init IMPRESSION: 1. The increase in radiopharmaceutical concentration defined in the right upper lung field, right upper lobe does not fulfill quantitative criteria for malignant transformation (Lucila et al, Journal of Nuclear Medicine, 32:1, 1991). Repeat FDG PET CT and/or CT of the thorax in 6-9 months is recommended to ensure stability if clinically indicated. 2. No other quantitatively significant hypermetabolic abnormalities are identified. Electronic Signature Vipin Montez D.O. Accurate Quantification of SUVs for this report are calculated using the exclusive [employer]. ([place]. Patent No. [id number] B2 [phone] [place] patent [phone] [id number] [phone] [id number]). Standardization and correction of the FDG SUV metric via [employer] technology allow for vendor non-specific objective quantitative examination comparison and optimization of the sensitivity and specificity of the FDG PET-CT examination. . Electronically Signed: Vipin Montez, at 21:48 EDT ,
== END | disposition home or self-care (01) ==
LOC: ONC 08:08
PROVIDERS: PCP Nurse Practitioner Family; Referring Provider Internal Medicine Critical Care Medicine; Visit Provider Internal Medicine Critical Care Medicine
DX: R91.1 Solitary pulmonary nodule (principal)
CPT/HCPCS: 78815; A9552

== ENCOUNTER → 2023-01-25 | Outpatient (CLI) | payer MEDICARE, SELFPAY ==
--- NOTE | 2023-01-25 07:28 | CT_ITS ---
INDICATION: Chest pain/pressure EXAMINATION: CT CHEST WITHOUT CONTRAST - CT Chest W/O Contrast Injection TECHNIQUE: Helically acquired images were obtained of the chest. A radiation dose optimization technique was used for this scan. IV Contrast dosage and agent: None. COMPARISON: 08/31/2022 FINDINGS: LUNGS, PLEURA AND LARGE AIRWAYS: Lung windows show underlying emphysema. There are 2 separate stable scars in the right upper lobe. A previously noted noncalcified nodule in the left upper lobe is not identified on current study suggesting it was likely inflammation. No new suspicious noncalcified mass or nodule. No organized infiltrate or effusion. THYROID: No thyroid lesions. HEART AND PERICARDIUM: Heart size is normal. No pericardial effusion. CORONARY ARTERIES: Coronary artery calcification is not seen. VESSELS: Thoracic aorta is not dilated. MEDIASTINUM AND OLLIE: No suspicious axillary, mediastinal or hilar adenopathy. Esophagus is unremarkable. No hiatal hernia. UPPER ABDOMEN: No acute pathology. BONES: No suspicious lytic or blastic abnormality. Bony structures show degenerative change. Surgical hardware in the lower C-spine free of complication. CT/Chest without Contrast IMPRESSION: Underlying emphysema with bleb formation throughout both upper lung dawn. The previously noted 1.4 x 1.1 cm poorly defined left upper lobe nodule not seen on current study suggesting it was likely inflammation. Stable scars in the right upper lobe unchanged from 06/02/2022. Another six-month follow-up recommended to assess stability. No superimposed infiltrate or effusion No suspicious adenopathy Degenerative bony changes Electronically Signed: Edgardo Trent MD at 11:29 EST ,
== END | disposition home or self-care (01) ==
LOC: CT 07:28
PROVIDERS: PCP Nurse Practitioner Family; Referring Provider Nurse Practitioner Acute Care; Visit Provider Nurse Practitioner Acute Care
DX: R91.1 Solitary pulmonary nodule (principal)
CPT/HCPCS: 71250

== ENCOUNTER → 2024-02-06 | Outpatient (CLI) | payer MEDICARE, SELFPAY ==
--- NOTE | 2024-02-06 06:53 | CT_ITS ---
STUDY: LOW DOSE CT LUNG CANCER SCREENING REASON FOR EXAM: Male, 68 years old. Tobacco Dependency. Current smoker. Patient smokes 1 pack per day for 40 years. History of COPD. RADIATION DOSAGE (If Supplied By Facility): CTDIvol = ( 3.02 ) mGy, DLP = ( 100.05 ) mGycm TECHNIQUE: No contrast was administered. Low dose technique was utilized (average mAS-38 and kVp 120). 1.25 mm axial source images with a slice interval of 1.25-mm were reconstructed in lung windows. 2.5 mm axial source images with a slice interval of 2.5-mm were reconstructed in lung windows. 5.0 mm axial source images with a slice interval of 5.0-mm were reconstructed in soft tissue windows. COMPARISON: Comparison is made with prior study dated January 25, 2023. NODULES: No suspicious nodules are seen. Emphysema: Hyperinflation. Emphysematous changes. Scarring at the lung apices more pronounced in the right lung apex. Centrilobular emphysematous changes seen more pronounced in the upper lobes. Endobronchial lesion: None Aorta: Mild atherosclerotic plaque formation of the aortic arch. CORONARY ARTERIES: Coronary artery calcification is seen. Heart: Unremarkable Pulmonary artery: Unremarkable Mediastinal nodes: Small mediastinal lymph nodes. Other chest and abdominal findings: Fusion in the lower cervical spine. CT/Low Dose CT Lung Screening IMPRESSION: Lung-RADS category 2 - Continue annual screening with LDCT in 12 months. IMPORTANT NOTES FOR USE: ACR Lung-RADS Version 1.1 Assessment Categories Release Date: 2018 Category: Coded 0-4 bases on nodule(s) with highest degree of suspicion. Negative screen is defined as categories 1 and 2; a positive screen is defined as categories 3 and 4. Category 3 and 4A nodules that are unchanged on interval CT should be coded as category 2, and individuals returned to screening in 12 months. Category 4X: Category 3 or 4 nodules with additional imaging findings that increase the suspicion of lung cancer, such as spiculation, GGN that doubles in size in 1 year, enlarged lymph notes, etc. Category Modifiers: S (significant finding unrelated to lung cancer) Electronically Signed: Jasbir Delgado MD at 13:31 EST ,
== END | disposition home or self-care (01) ==
PROVIDERS: PCP Nurse Practitioner Family; Referring Provider Internal Medicine Critical Care Medicine; Visit Provider Internal Medicine Critical Care Medicine
DX: Z12.2 Encounter for screening for malignant neoplasm of respiratory organs (principal); F17.210 Nicotine dependence, cigarettes, uncomplicated
CPT/HCPCS: 71271